=== PATIENT | male | born 1955 | race Caucasian/White ===

== ENCOUNTER 2021-01-27 11:01 | Inpatient (IN) | payer MEDICARE, SELFPAY ==
[2021-01-27] VITALS (24 sets, daily range): BP systolic 100–138; BP diastolic 65–102; PULSE 50–85; RESP 19–35; TEMP 36.6–37.5; O2SAT 70–96; BMI 42.0; BMI 41.8
--- NOTE | 2021-01-27 11:05 | EDS_ITS ---
HPI History of Present Illness Chief Complaint: Shortness of Breath Informant: patient Onset/Context/Timing Onset: Days Context: gradual Timing: Continuous Current Severity: Moderate Maximum Severity: Moderate Worsened by: Coughing Relieved by: Nothing Associated Symptoms cough Narrative Narrative: Patient is a 65-year-old male who is on no daily medications presents to the emergency department with shortness of breath, scant cough, chills, and malaise. On arrival, the patient was found to be hypoxic with oxygen saturations in the 70s. He was placed on a nonrebreather. He states for the past 3 or 4 days, is just felt generally unwell. Patient has not been vaccinated against Covid. He cannot recall any sick contacts. He denies chest pain or pleuritic pain. He states that he was recently treated for gout and as it was improving, he began to get sick. He has no underlying history of lung disease. He does not smoke. He has no history of pulmonary embolus. [facility] Medical History (Updated 01/27/21 @ 11:14 by Oswaldo Campbell) Gout no medical history Home Medications NK 01/27/21 [History Last Taken Unknown] Allergy/AdvReac Type Severity Reaction Status Date / Time No Known Allergies Allergy Verified 01/27/21 11:04 Surgical History (Updated 01/27/21 @ 11:14 by Oswaldo Campbell) History of arthroscopic knee surgery Social History Smoking Status: Never smoker ROS ROS ED Constitutional Constitutional ED: Reports chills Eyes Eyes: Denies blurry vision or change in vision ENT ENT ED: Denies ear pain or sore throat Cardiovascular Cardiovascular: Denies chest pain or palpitations Respiratory/Chest Respiratory/Chest: Reports cough, dyspnea and dyspnea on exertion Gastrointestinal Gastrointestinal: Denies abdominal pain, nausea or vomiting Genitourinary Genitourinary ED: Denies dysuria or urinary frequency Musculoskeletal Musculoskeletal: Denies arthralgias or myalgias Integumentary Denies rash Neurologic Neurologic: Denies headache(s) or paresthesias Psychiatric Psychiatric: Denies anxiety or depression Endocrine Endocrinology: Denies polydipsia or polyuria Allergic/Immunologic Allergic/Immunologic ED: Denies urticaria EXAM Physical Exam Const Vital Signs: 01/27/21 11:08 01/27/21 11:12 01/27/21 11:15 Temperature 99.1 F 99.1 F Temperature Source Temporal Temporal Pulse Rate 79 78 80 Respiratory Rate 28 H 30 H 20 H Respiratory Effort Respiratory Depth Respiratory Pattern Tachypnea Blood Pressure 138/80 H 138/80 H Blood Pressure Mean 99 99 Pulse Ox 70 88 93 Oxygen Delivery Method Room Air Non-Rebreather Oxygen Flow Rate (L/min) 15 Fraction of Inspired Oxygen (FIO2) 93 01/27/21 11:18 Temperature Temperature Source Pulse Rate Respiratory Rate Respiratory Effort Short of Breath Respiratory Depth Normal Respiratory Pattern Tachypnea Blood Pressure Blood Pressure Mean Pulse Ox Oxygen Delivery Method Airvo Oxygen Flow Rate (L/min) 60 Fraction of Inspired Oxygen (FIO2) 92 Positive well nourished and well developed General Appearance ED: well developed HEENT Reports normocephalic, head/scalp atraumatic and moist mucous membranes Eyes PERRL and EOMs intact bilaterally Neck no lymphadenopathy and supple General: Negative for tenderness Chest Wall inspection of chest normal Resp normal respiratory effort Auscultation: rhonchi Cardio regular rate, regular rhythm and no murmurs GI normal to inspection, nondistended, normoactive bowel sounds Palpation: Negative for tender, guarding or rebound tenderness present Back/Spine no CVA tenderness Cervical Spine: Negative for cervical spine tenderness Thoracic Spine / Upper Back: Negative for thoracic spinal tenderness Extremity normal to inspection General Extremety ED: Negative for tenderness Neuro oriented x3 and CN's II-XII intact bilaterally Neuro Narrative: No focal deficits appreciated. Sensorium / Orientation: alert Psych mental status grossly normal Skin no rashes or lesions noted, no wounds and skin turgor normal MDM MDM MDM Narrative Medical decision making narrative: The patient presents with generalized malaise, fatigue, cough, shortness of breath. On arrival, the patient has an oxygen saturation of 70%. He is in no respiratory distress however. He does have coarse lung sounds. I am concerned that the patient may have Covid. He has not been vaccinated. Metabolic work-up was pursued. His x-ray does show bilateral infiltrates consistent with viral pneumonia. Is reviewed by both myself and the radiologist. Patient's Covid test was positive. Patient was able to be transitioned to Jaya with oxygen saturations in the mid 90s. He is also given 6 mg of Decadron. With his hypoxic respiratory failure, I do for the patient is to require admission. The patient was discussed with the hospitalist. Impression 1. Hypoxic respiratory failure 2. COVID-19 3. Acute kidney injury Lab Data Attestation: I reviewed the patient's lab results. Labs: Laboratory Results - last 24 hr 01/27/21 01/27/21 11:38 11:38 Sodium 135 L Potassium 3.3 L Chloride 98 Carbon Dioxide 27.0 Anion Gap 10 BUN 24 H Creatinine 1.85 H Estim Creat Clear Calc 36.23 Est GFR (MDRD) Af Amer 47 L Est GFR (MDRD) Non-Af 39 L BUN/Creatinine Ratio 13.0 Glucose 143 H Lactic Acid 1.9 Calcium 8.0 L Total Bilirubin 0.50 AST 75 H ALT 66 H Alkaline Phosphatase 50 Total Protein 7.3 Albumin 3.1 L Globulin 4.2 Albumin/Globulin Ratio 0.7 L Radiography Chest X-Ray - ED: 1 View, Read by ED Physician, Normal, Heart, Mediastinum, Right Infiltrate and Left Infiltrate Diagnostic Testing: Radiology Impression Chest X-Ray 01/27/21 11:16 IMPRESSION: Right upper lobe infiltrate as well as focal infiltrate in the left upper lobe and left lower lobe. Follow-up is recommended. Electronically Signed: Yony Arizmendi MD at 11:34 EDT , Service support , Critical Care Time Critical Care Time: Yes Critical care time (excluding procedures): 30-74 minutes (35), Discussing w/Patient &/or Family/Care Professional, Discussing w/Consultants, Arranging Admission or Transfer and Performing Direct Patient Care at Bedside Discharge Plan Triage Chief Complaint: Shortness of Breath ED Provider: Giuliano Bradshaw Dx/Rx/DC Orders Prescriptions: No Action NK RF: 0 Primary Care Provider: Care Physician,No Primary
--- NOTE | 2021-01-27 11:16 | RAD_ITS ---
STUDY: X-RAY CHEST REASON FOR EXAM: Male, 65 years old. Cough, SOB TECHNIQUE: Single AP portable view of the chest. COMPARISON: None. FINDINGS: EKG electrodes are seen. There is elevation of the right hemidiaphragm. Infiltrate in the right upper lobe as well as in the left upper and left lower lobes. Differential diagnosis consideration includes atypical CHF versus bilateral pulmonary infiltrates. There is no demonstrated pleural abnormality. Normal size heart. Normal mediastinum and tan. Normal visualized pulmonary arteries. There is atherosclerotic calcification of the aortic arch with tortuosity. There are diffuse degenerative changes of the visualized thoracic spine. Normal visualized ribs, clavicles, and shoulders. There is no demonstrated abnormality of the visualized soft tissue structures of the upper abdomen. RAD/Chest 1 View (Portable) IMPRESSION: Right upper lobe infiltrate as well as focal infiltrate in the left upper lobe and left lower lobe. Follow-up is recommended. Electronically Signed: Yony Arizmendi MD at 11:34 EDT , Service support ,
[2021-01-27 11:54] LABS: Absolute Lymphocyte Count 1.22 X10^3/uL (0.83-4.51); Absolute Neutrophil Count 3.8 X10^3/uL (2.0-7.7); Basophil# 0.02 X10^3/uL; Basophil% 0.3 % (0-1); Hematocrit 45.7 % (40-54); Hemoglobin 15.3 g/dL (13.0-16.5); Lymphocyte # 1.22 X10^3/ul (0.83-4.51); Lymphocyte % 20.4 % (19-41); Mean Corp Hgb Conc 33.5 g/dL (32-36); Mean Corpuscular Hgb 28.5 pg (27.0-32.0); Mean Corpuscular Volume 85.3 fL (80-94); Mean Platelet Vol. 10.4 fl (6.2-12.0); Monocyte# 0.94 X10^3/uL; Monocyte% 15.7 % (0-10); NRBC Flagged by Analyzer 0 % (0-5); Neutrophil # 3.75 X10^3/uL (2.7-7.7); Neutrophil % 62.8 % (47-70); Platelet Count 223 K/mm3 (150-450); RBC Distribution Width CV 13.6 % (11.6-14.6); RBC Distribution Width SD 42.6 fl (35.1-43.9); Red Blood Count 5.36 M/mm3 (4.6-6.2)
[2021-01-27 12:11] LABS: ALB/GLOB Ratio 0.7 RATIO (0.9-2.4); AST(SGOT) 75 U/L (15-37); Alanine Aminotransfer ALT/SGPT 66 U/L (16-61); Albumin, Serum 3.1 g/dL (3.2-5.0); Alkaline Phosphatase 50 U/L (45-117); Anion Gap 10 (5-15); BUN 24 mg/dL (7-18); Chloride 98 mmol/L (98-107); Creatinine, Serum 1.85 mg/dL (0.70-1.30); EST Glomerular Filtration Rate 39 mL/min (>60); Est Glom Filt Rate - Afr Amer 47 mL/min (>60); Estimated Creatinine Clearance 36.23 ml/min; Globulin 4.2 g/dL (2.2-4.2); Glucose 143 mg/dL (74-106); Potassium 3.3 mmol/L (3.5-5.1); Protein, Total 7.3 g/dL (6.4-8.2); Sodium Level 135 mmol/L (136-145)
[2021-01-27 12:16] LABS: Lactic Acid 1.9 mmol/L (0.4-1.9)
[2021-01-27 12:30] LABS: BNP,B-Type NATRIURETIC PEPTIDE 30.2 pg/mL (0-100)
--- NOTE | 2021-01-27 12:36 | NURSING ---
DR SEBASTIAN ROGERS
--- NOTE | 2021-01-27 12:38 | HP.PCM.HOS_ITS ---
HPI - General General Date of Admission: 01/27/21 HPI Narrative GILBERTO DAHL, is a 65 M with unknown medical problem as he does not follow physician perhaps hypertension came to ER with symptom complex for 10 days. This started with nonspecific malaise weakness and diarrhea for about 4 days. Yesterday the diarrhea was large volume watery about 3-4 times a day without any blood or melena. Denies vomiting, hematemesis. This is resolved but started having mild nonproductive cough and shortness of breath over last 4 days which has progressed. Mild fever with chills. Denies loss of taste or smell. Generalized body aches. Patient denies any respiratory disease including COPD, asthma, interstitial lung disease or smoking. Denies chronic heart disease including heart failure or coronary artery disease. In the ER, he was found sick with tachypnea, pulse ox 70% on room air and put on nonrebreather and then AIRVO. Chest x-ray shows bilateral infiltrates in the right upper lobe, left upper and lower lobes. Labs reviewed and abnormal labs were BUN/creatinine 24/1.85, sodium 135 and potassium 3.3, glucose 143, elevated transaminases. Lactic acid normal. Procalcitonin 0.16 elevated. COUNTS INCLUDE 234 BEDS AT THE [facility] Medical History Gout Kidney stones Home Medications NK 01/27/21 [History Last Taken Unknown] Allergy/AdvReac Type Severity Reaction Status Date / Time No Known Allergies Allergy Verified 01/27/21 11:04 Family History (Updated 01/27/21 @ 14:[address] Rodri Joyce MD) Father Cancer Surgical History History of arthroscopic knee surgery Social History Smoking Status: Never smoker ROS ROS Narrative Constitutional: Reports fatigue and weakness. Short of breath HEENT: Reports systems reviewed and no addt'l complaints, except as documented Respiratory/Chest: Denies chest pain. Dyspnea at rest and hypoxia severe as mentioned in HPI Gastrointestinal: Diarrhea resolved. Losartan. Denies coffee ground emesis, hematemesis or vomiting Genitourinary: Denies burning urination or new urinary tract symptoms. Urine dark color. Musculoskeletal: Reports joint pain and limited range of motion Neurologic: Denies seizure-like activity skin: No ulcer. No rash Endocrinology: Reports systems reviewed and no addt'l complaints, except as docu mented Hematologic/Lymphatic: Reports systems reviewed and no addt'l complaints, except as documented Rest 12 ROS are negative except as mentioned in HPI Vital Signs Vital Signs Vital Signs: 01/27/21 11:08 01/27/21 11:12 01/27/21 11:15 Temperature 99.1 F 99.1 F Temperature Source Temporal Temporal Pulse Rate 79 78 80 Respiratory Rate 28 H 30 H 20 H Respiratory Effort Respiratory Depth Respiratory Pattern Tachypnea Blood Pressure 138/80 H 138/80 H Blood Pressure Mean 99 99 Pulse Ox 70 88 93 Oxygen Delivery Method Room Air Non-Rebreather Oxygen Flow Rate (L/min) 15 Fraction of Inspired Oxygen (FIO2) 93 01/27/21 11:18 Temperature Temperature Source Pulse Rate Respiratory Rate Respiratory Effort Short of Breath Respiratory Depth Normal Respiratory Pattern Tachypnea Blood Pressure Blood Pressure Mean Pulse Ox Oxygen Delivery Method Airvo Oxygen Flow Rate (L/min) 60 Fraction of Inspired Oxygen (FIO2) 92 Weight Weight: 268 lb 8.368 oz Body Mass Index (BMI) 42.0 Physical Exam Narrative Physical exam General: Alert, Oriented x3, Cooperative HEENT: Atraumatic, PERRLA, EOMI, Normocephalic Oral: Oral mucosa dry. No Gingival or Mucosal Lesions/ Ulcerations Neck: Supple, No JVD, Negative Carotid Bruits Lungs: Air entry severely diminished in bilateral lung bases. Bilateral coarse crepitations. Severe hypoxia and tachypnea Cardiovascular: Regular rate, Regular Rhythm, Normal S1, Normal S2, No murmurs Abdomen: Bowel Sounds Present, Soft, Non Tender, Non-Distended : No renal angle tenderness. No suprapubic tenderness. Extremities: No edema, Capillary Refill Less than 3 Seconds Skin: No rashes, No breakdown Musculoskeletal: No Tenderness to Palpation of Joints or Extremities Neurological: Cranial nerves II-XII grossly intact, Deep Tendon Reflexes 2+/4 and Symmetrical, Neuro grossly intact Psych/Mental Status: Normal Affect, Appropriate. Results Lab / Micro Data Result Diagrams: 01/27/21 11:38 01/27/21 11:38 Labs: Laboratory Results - last 24 hr 01/27/21 01/27/21 01/27/21 11:38 11:38 11:38 WBC 6.0 RBC 5.36 Hgb 15.3 Hct 45.7 MCV 85.3 MCH 28.5 MCHC 33.5 RDW Std Deviation 42.6 RDW Coeff of [place] 13.6 Plt Count 223 MPV 10.4 Immature Gran % (Auto) 0.800 Neut % (Auto) 62.8 Lymph % (Auto) 20.4 Grady % (Auto) 15.7 H Eos % (Auto) 0.0 Baso % (Auto) 0.3 Absolute Neuts (auto) 3.8 Absolute Lymphs (auto) 1.22 Nucleated RBC % 0 Sodium 135 L Potassium 3.3 L Chloride 98 Carbon Dioxide 27.0 Anion Gap 10 BUN 24 H Creatinine 1.85 H Estim Creat Clear Calc 36.23 Est GFR (MDRD) Af Amer 47 L Est GFR (MDRD) Non-Af 39 L BUN/Creatinine Ratio 13.0 Glucose 143 H Lactic Acid 1.9 Calcium 8.0 L Total Bilirubin 0.50 AST 75 H ALT 66 H Alkaline Phosphatase 50 B-Natriuretic Peptide Total Protein 7.3 Albumin 3.1 L Globulin 4.2 Albumin/Globulin Ratio 0.7 L 01/27/21 11:38 WBC RBC Hgb Hct MCV MCH MCHC RDW Std Deviation RDW Coeff of [place] Plt Count MPV Immature Gran % (Auto) Neut % (Auto) Lymph % (Auto) Grady % (Auto) Eos % (Auto) Baso % (Auto) Absolute Neuts (auto) Absolute Lymphs (auto) Nucleated RBC % Sodium Potassium Chloride Carbon Dioxide Anion Gap BUN Creatinine Estim Creat Clear Calc Est GFR (MDRD) Af Amer Est GFR (MDRD) Non-Af BUN/Creatinine Ratio Glucose Lactic Acid Calcium Total Bilirubin AST ALT Alkaline Phosphatase B-Natriuretic Peptide 30.2 Total Protein Albumin Globulin Albumin/Globulin Ratio Micro: Microbiology 01/27/21 11:42 SARS-CoV-2 Antigen (Rapid) - Final Mucosa - Nose SARS-CoV-2 (COVID 19) Radiology Impression Chest X-Ray 01/27/21 11:16 IMPRESSION: Right upper lobe infiltrate as well as focal infiltrate in the left upper lobe and left lower lobe. Follow-up is recommended. Electronically Signed: Yony Arizmendi MD at 11:34 EDT , Service support , Assessment & Plan Assessment/Plan (1) Acute and chronic respiratory failure with hypoxia: (2) Pneumonia due to COVID-19 virus: (3) Hypokalemia: (4) JODI (acute kidney injury): PLAN: 65-year-old gentleman admitted with severe hypoxia and tachypnea and chest x-ray finding consistent with bilateral COVID-19 pneumonia 1. Acute hypoxic respiratory failure secondary to bilateral COVID-19 pneumonia: ABG was done, 7.4 on 60 L, pulse ox 93% on airvo. Patient is being a dmitted in ICU. Kelly Machine Operator and ID are consulted for comanagement. I talked to Dr. Davidson and we agreed for IV remdesivir. IV Decadron 6 mg daily. Oxygen therapy. 2. Acute gastroenteritis: Patient diarrhea symptoms have resolved. On IV fluid Ringer lactate as potassium sodium are low. 3. Acute kidney injury mostly secondary to dehydration, prerenal etiology or JODI of CKD of unknown stage: IV fluid Ringer lactate. Urine lites ordered. Monitor kidney function if does not improve, kidney ultrasound consult spinner tender. Last creatinine is 1.1 in June 2014 in our system 4. Patient history of gout and kidney stones. Patient states he might have hypertension. Patient has unknown medical history and does not follow physician. Patient is in non-smoker. VTE prophylaxis: Lovenox 40 mg subcu daily, adjusted because of creatinine clearance. Living will/advanced directive/end of life care: Patient does not have living will or advanced directive. His power of privacy attorney for health is son. After discussion of benefits/risks procedures involved with full code, DNR CC arrest and DNR CC, the patient opted for full code. Patient does want artificial life support including intubation, tube feed, ventilator and/chest compression, central venous catheter, vasopressor and DC shock if needed Total time spent in [id number] encounter in discussion of advanced directive 16 minutes. Charges/Coding Visit Charges Inpatient E&M: 58810 Init Hosp L3 Multi Select Codes Hospitalists' Procedures Procedures: 91373 Advncd Care Plan 30 Min
--- NOTE | 2021-01-27 12:40 | NURSING ---
ICU [facility] COVID, HYPOXIA
--- NOTE | 2021-01-27 12:59 | NURSING ---
DR CORTES IN WITH PATIENT
--- NOTE | 2021-01-27 13:04 | NURSING ---
CV ICU 203
[2021-01-27] MEDS: 0.9% Normal Saline 1,000 ML 125 ML IV (13:39)
[2021-01-27] MEDS: dexAMETHasone 4 MG/ML Vial 6 MG IV (13:39)
[2021-01-27 14:07] LABS: Procalcitonin 0.16 ng/mL (0.00-0.09)
--- NOTE | 2021-01-27 14:33 | EKG12_ITS ---
Test Reason : ADMIT Blood Pressure : / mmHG Vent. Rate : 074 BPM Atrial Rate : 074 BPM P-R Int : 148 ms QRS Dur : 108 ms QT Int : 482 ms P-R-T Axes : 001 -08 042 degrees QTc Int : 535 ms Normal sinus rhythm Prolonged QT Abnormal ECG When compared with ECG of 15-JUN-2014 14:52, QT has lengthened Confirmed by GURU GALLEGO, IVAN ([id number]), design editor ARVIND LEBRON ([id number]) on 01/31/2021 9:43:25 AM Referred By: SEBASTIAN Confirmed By:IVAN GARVEY MD
[2021-01-27 14:35] LABS: Allen Test Positive; Base Excess 1 mmol/L (-2 to +2); Bicarbonate 25.2 mmol/L (22-26); Blood Gas Specimen Type ART; FI02 93; PO2 62 mmHG (75-100); SITE L Radial; SO2 92 % (95-99); Total Carbon Dioxide 26 mmol/L; pH 7.43 (7.35-7.45)
[2021-01-27 17:52] LABS: Magnesium 1.9 mg/dL (1.6-2.6)
[2021-01-27] MEDS: 0.9% Saline Lock 10 ML Syringe IV (17:54)
[2021-01-27] MEDS: Enoxaparin 40 MG/0.4 ML Syringe SC (17:54)
[2021-01-27] MEDS: Lactated Ringers 1,000 ML 100 ML IV (17:55)
[2021-01-27 18:00] LABS: CPK Total, Creatine Kinase 490 U/L (39-308); LDH 634 U/L (87-241)
[2021-01-27 18:16] LABS: International Normalized Ratio 1.1; Prothrombin Time (Protime)PT. 13.8 SECONDS (11.7-14.9)
[2021-01-27 18:17] LABS: Fibrinogen 626 mg/dl (203-444)
[2021-01-27 18:24] LABS: D-Dimer Quantitative (DVT/PE) 1.23 FEU/ug/m (0.27-0.49)
[2021-01-27] MEDS: Ipratropium/Albuterol Sulfate 3 ML AMPUL.NEB INHALATION (18:56)
--- NOTE | 2021-01-27 19:13 | VDLE_ITS ---
Reason For Study: Elevated D-dimer RIGHT LEFT GSV is normal. GSV is normal. CFV, FV and PopV are compressible. CFV, FV and PopV are compressible. T/P Trunk is compressible. T/P Trunk is compressible. PTV is compressible. PTV is compressible. RT PerV is compressible. LT PerV is compressible. Procedure This is a venous duplex using B-mode, color flow and spectral Doppler. Exam performed portable in patient room. The exam was abbreviated due to the COVID 19 protocol. A preliminary report was called and/or faxed to [facility] and Pete. VL/Venous Duplex US - Tk Extrem Interpretation Summary No evidence for acute deep venous thrombosis bilateral lower extremities with p atent and compressible bilateral great saphenous veins. COVID-19 protocol utilized Ordering Physician: Ernesto Mathias Performed By: Estelita Stanton RVT
[2021-01-27] MEDS: Enoxaparin 120 MG/0.8 ML Syringe SC (20:51)
[2021-01-27 21:45] LABS: Urine Chloride < 10 mmol/L (Not Establ.); Urine Sodium 9 mmol/L (Not Establ.)
[2021-01-28] VITALS (36 sets, daily range): BP systolic 104–148; BP diastolic 64–85; PULSE 53–84; RESP 12–45; TEMP 36.1–36.9; O2SAT 78–97
--- NOTE | 2021-01-28 05:23 | CPS ---
Patient transitioned to AVAPS BiPAP mode for low shallow tidal volumes ranging in the low 300s on 27/05 with increased tachypnea. Volumes on AVAPS improved and oxygenation improved with increase of FiO2 to 90% from 80% on previous setting.
[2021-01-28 06:02] LABS: Absolute Lymphocyte Count 1.02 X10^3/uL (0.83-4.51); Basophil# 0.01 X10^3/uL; Basophil% 0.1 % (0-1); Hematocrit 45.2 % (40-54); Hemoglobin 14.8 g/dL (13.0-16.5); Lymphocyte # 1.02 X10^3/ul (0.83-4.51); Lymphocyte % 12.8 % (19-41); Mean Corp Hgb Conc 32.7 g/dL (32-36); Mean Corpuscular Hgb 28.6 pg (27.0-32.0); Mean Corpuscular Volume 87.3 fL (80-94); Mean Platelet Vol. 10.3 fl (6.2-12.0); Monocyte# 0.83 X10^3/uL; Monocyte% 10.4 % (0-10); NRBC Flagged by Analyzer 0 % (0-5); Neutrophil # 6.04 X10^3/uL (2.7-7.7); Neutrophil % 75.8 % (47-70); Platelet Count 232 K/mm3 (150-450); RBC Distribution Width CV 13.8 % (11.6-14.6); RBC Distribution Width SD 44.4 fl (35.1-43.9); Red Blood Count 5.18 M/mm3 (4.6-6.2)
--- NOTE | 2021-01-28 06:24 | EX.PCM.CONCC ---
Assessment & Plan Assessment/Plan (1) Pneumonia due to COVID-19 virus: PLAN: RECOMMENDATIONS: 1. Continue BiPAP support and wean FiO2 to maintain oxygen saturations at or above 90%. 2. If no improvement in next 24 hours, may need to consider intubation. 3. Continue remdesivir as ordered. Continue to monitor liver and renal function. 4. Continue Decadron to complete 10-day treatment course. 5. Given elevated D-dimer, recommend empiric anticoagulation until CTA can be obtained. 6. Patient to be n.p.o., given tenuous respiratory status. IMPRESSIONS: 1. Acute hypoxemic respiratory failure secondary to COVID-19 pneumonia The patient presents to the hospital with approximately 10 days of Covid symptoms and has had progressive decline in his respiratory status. Plan to continue noninvasive positive pressure ventilatory support as tolerated with a goal to maintain oxygen saturations at or above 90%. The patient will be continued on remdesivir, with monitoring of liver and renal function. Plan to continue Decadron to complete 10-day treatment course. Although D-dimer was elevated, CTA could not be obtained due to renal insufficiency. Agree with continuing empiric anticoagulation for now. The patient is at high risk for the need for intubation in the next 24 hours, if no improvement from an oxygenation perspective. 2. Acute kidney injury Most likely prerenal in etiology and related to acute presentation. Creatinine has improved with volume expansion. Continue to monitor urine output. No current indication for renal replacement therapy. TIME: 38 minutes of critical care time, independent of procedures, was spent addressing the patient's acute hypoxemic respiratory failure, COVID-19 pneumonia, acute kidney injury, review of all data and collaboration with the care team. ([phone]) HPI Consult Data Date of Consult: 01/28/21 HPI Narrative Reason for Consultation: Acute hypoxemic respiratory failure secondary to COVID-19 pneumonia HPI Narrative: The patient is a 65-year-old male, with a history as outlined below, who presented to the emergency department on January 27 with complaints of shortness of breath, nonproductive cough, generalized malaise, fatigue and hypoxemia. The patient has not yet been vaccinated for coronavirus. He denies any recent sick contact exposure. Symptoms have been present for approximately 10 days. On presentation to the emergency department, the patient was noted to be afebrile and hemodynamically stable. He was, however, tachypneic and hypoxemic. Laboratory evaluation revealed a normal white blood cell count. Coagulation profile revealed a fibrinogen level of 626 with a D-dimer of 1.23. Chemistry profile was notable for a sodium of 135, potassium of 3.3 and creatinine of 1.85. Initial arterial blood gas obtained on airVo revealed a pH of 7.43, PCO2 of 38 and PO2 of 62. Chest x-ray revealed multifocal airspace disease. Rapid coronavirus antigen testing was positive. The patient was started on Lovenox, remdesivir and Decadron. He was admitted to the medical intensive care unit for further management. Overnight, the patient required initiation of BiPAP and currently has an FiO2 requirement of 90%. [facility] Medical History Gout Kidney stones Home Medications NK 01/27/21 [History Last Taken Unknown] Allergy/AdvReac Type Severity Reaction Status Date / Time No Known Allergies Allergy Verified 01/27/21 11:04 Family History (Updated 01/27/21 @ 14:[address] Rodri Joyce MD) Father Cancer Surgical History History of arthroscopic knee surgery Social History Smoking Status: Never smoker ROS Constitutional Constitutional: Reports chills, fatigue and fever(s) Eyes Eyes: Denies blurry vision or change in vision ENT HEENT: Denies headache(s), loss taste/smell or sore throat Cardiovascular Cardiovascular: Reports dyspnea; Denies chest pain Respiratory/Chest Respiratory/Chest: Reports cough; Denies chest tightness Gastrointestinal Gastrointestinal: Reports diarrhea; Denies abdominal pain Genitourinary Genitourinary: Denies difficulty urinating Musculoskeletal Musculoskeletal: Denies arthralgias or back pain Integumentary Integumentary: Denies lesions or rash Neurologic Neurologic: Denies abnormal gait or abnormal speech Psychiatric Psychiatric: Denies anxiety or depression Endocrine Endocrinology: Reports fatigue Hematologic/Lymphatic Hematologic/Lymphatic: Denies easy bleeding or easy bruising Physical Exam Const alert General Appearance: cooperative and on BiPAP HEENT normocephalic and head/scalp atraumatic Eyes PERRL, EOMs intact bilaterally and conjunctivae normal Neck supple General: trachea midline Resp Effort and Inspection: tachypneic Auscultation: diminished lung sounds Cardio regular rate and regular rhythm GI normal to inspection, nondistended, normoactive bowel sounds Extremity no clubbing, cyanosis or edema Skin no rashes or lesions noted Neuro CN's II-XII intact bilaterally, moves all extremities and no focal motor deficits Psych cooperative and affect normal Lab / Micro Data Result Diagrams: 01/28/21 05:50 01/28/21 05:50 Labs: Laboratory Results - last 24 hr 01/27/21 01/27/21 01/27/21 11:38 11:38 11:38 WBC 6.0 RBC 5.36 Hgb 15.3 Hct 45.7 MCV 85.3 MCH 28.5 MCHC 33.5 RDW Std Deviation 42.6 RDW Coeff of [place] 13.6 Plt Count 223 MPV 10.4 Immature Gran % (Auto) 0.800 Neut % (Auto) 62.8 Lymph % (Auto) 20.4 [place] % (Auto) 15.7 H Eos % (Auto) 0.0 Baso % (Auto) 0.3 Absolute Neuts (auto) 3.8 Absolute Lymphs (auto) 1.22 Nucleated RBC % 0 PT INR Fibrinogen D-Dimer Quant (PE/DVT) Sodium 135 L Potassium 3.3 L Chloride 98 Carbon Dioxide 27.0 Anion Gap 10 BUN 24 H Creatinine 1.85 H Estim Creat Clear Calc 36.23 Est GFR (MDRD) Af Amer 47 L Est GFR (MDRD) Non-Af 39 L BUN/Creatinine Ratio 13.0 Glucose 143 H Lactic Acid 1.9 Calcium 8.0 L Magnesium Total Bilirubin 0.50 AST 75 H ALT 66 H Alkaline Phosphatase 50 Lactate Dehydrogenase Total Creatine Kinase Troponin I C-React Prot Ext Range B-Natriuretic Peptide Total Protein 7.3 Albumin 3.1 L Globulin 4.2 Albumin/Globulin Ratio 0.7 L Procalcitonin Ur Random Sodium Urine Creatinine Urine Potassium Urine Chloride 01/27/21 01/27/21 01/27/21 11:38 11:38 11:38 WBC RBC Hgb Hct MCV MCH MCHC RDW Std Deviation RDW Coeff of [place] Plt Count MPV Immature Gran % (Auto) Neut % (Auto) Lymph % (Auto) [place] % (Auto) Eos % (Auto) Baso % (Auto) Absolute Neuts (auto) Absolute Lymphs (auto) Nucleated RBC % PT INR Fibrinogen D-Dimer Quant (PE/DVT) Sodium Potassium Chloride Carbon Dioxide Anion Gap BUN Creatinine Estim Creat Clear Calc Est GFR (MDRD) Af Amer Est GFR (MDRD) Non-Af BUN/Creatinine Ratio Glucose Lactic Acid Calcium Magnesium 1.9 Total Bilirubin AST ALT Alkaline Phosphatase Lactate Dehydrogenase Total Creatine Kinase Troponin I C-React Prot Ext Range B-Natriuretic Peptide 30.2 Total Protein Albumin Globulin Albumin/Globulin Ratio Procalcitonin 0.16 H Ur Random Sodium Urine Creatinine Urine Potassium Urine Chloride 01/27/21 01/27/21 01/27/21 11:38 17:45 20:50 WBC RBC Hgb Hct MCV MCH MCHC RDW Std Deviation RDW Coeff of [place] Plt Count MPV Immature Gran % (Auto) Neut % (Auto) Lymph % (Auto) [place] % (Auto) Eos % (Auto) Baso % (Auto) Absolute Neuts (auto) Absolute Lymphs (auto) Nucleated RBC % PT 13.8 INR 1.1 Fibrinogen 626 H D-Dimer Quant (PE/DVT) 1.23 H* Sodium Potassium Chloride Carbon Dioxide Anion Gap BUN Creatinine Estim Creat Clear Calc Est GFR (MDRD) Af Amer Est GFR (MDRD) Non-Af BUN/Creatinine Ratio Glucose Lactic Acid Calcium Magnesium Total Bilirubin AST ALT Alkaline Phosphatase Lactate Dehydrogenase 634 H Total Creatine Kinase 490 H Troponin I 0.024 C-React Prot Ext Range 56.50 H B-Natriuretic Peptide Total Protein Albumin Globulin Albumin/Globulin Ratio Procalcitonin Ur Random Sodium 9 Urine Creatinine 182.00 Urine Potassium 32.0 Urine Chloride < 10 01/28/21 05:50 WBC 8.0 RBC 5.18 Hgb 14.8 Hct 45.2 MCV 87.3 MCH 28.6 MCHC 32.7 RDW Std Deviation 44.4 H RDW Coeff of [place] 13.8 Plt Count 232 MPV 10.3 Immature Gran % (Auto) 0.900 Neut % (Auto) 75.8 H Lymph % (Auto) 12.8 L [place] % (Auto) 10.4 H Eos % (Auto) 0.0 Baso % (Auto) 0.1 Absolute Neuts (auto) 6.0 Absolute Lymphs (auto) 1.02 Nucleated RBC % 0 PT INR Fibrinogen D-Dimer Quant (PE/DVT) Sodium Potassium Chloride Carbon Dioxide Anion Gap BUN Creatinine Estim Creat Clear Calc Est GFR (MDRD) Af Amer Est GFR (MDRD) Non-Af BUN/Creatinine Ratio Glucose Lactic Acid Calcium Magnesium Total Bilirubin AST ALT Alkaline Phosphatase Lactate Dehydrogenase Total Creatine Kinase Troponin I C-React Prot Ext Range B-Natriuretic Peptide Total Protein Albumin Globulin Albumin/Globulin Ratio Procalcitonin Ur Random Sodium Urine Creatinine Urine Potassium Urine Chloride Micro: Microbiology 01/27/21 20:50 Legionella Antigen - Final Urine, Clean Catch Streptococcus pneumoniae Antigen (M - Final 01/27/21 16:20 Respiratory Panel (PCR) - Final Mucosa - Nose 01/27/21 11:42 SARS-CoV-2 Antigen (Rapid) - Final Mucosa - Nose SARS-CoV-2 (COVID 19) ABG Data ABG results: ABG 01/27/21 14:29 Specimen Type ART Sample Site L Radial pH 7.43 Bicarbonate Actual 25.2 Total CO2 26 Base Excess 1 O2 Saturation 92 L O2 % 93 ABG pCO2 38.0 ABG pO2 62 L Brock Test Positive Clinical Comments airvo at 60lpm & 93% Radiology Impression Chest X-Ray 01/27/21 11:16 IMPRESSION: Right upper lobe infiltrate as well as focal infiltrate in the left upper lobe and left lower lobe. Follow-up is recommended. Electronically Signed: Yony Arizmendi MD at 11:34 EDT , Service support , Charges/Coding Procedures Hospitalists Procedures: [id number] Critial Care 1st Hr
[2021-01-28 06:26] LABS: ALB/GLOB Ratio 0.6 RATIO (0.9-2.4); AST(SGOT) 59 U/L (15-37); Alanine Aminotransfer ALT/SGPT 59 U/L (16-61); Albumin, Serum 2.7 g/dL (3.2-5.0); Alkaline Phosphatase 52 U/L (45-117); Anion Gap 5 (5-15); BUN 27 mg/dL (7-18); BUN/Creat Ratio 17.8 RATIO (10-20); Calcium,Total 8.2 mg/dL (8.5-10.1); Chloride 101 mmol/L (98-107); Creatinine, Serum 1.52 mg/dL (0.70-1.30); EST Glomerular Filtration Rate 49 mL/min (>60); Est Glom Filt Rate - Afr Amer 59 mL/min (>60); Estimated Creatinine Clearance 44.09 ml/min; Globulin 4.2 g/dL (2.2-4.2); Glucose 146 mg/dL (74-106); Magnesium 2.2 mg/dL (1.6-2.6); Potassium 4.2 mmol/L (3.5-5.1); Protein, Total 6.9 g/dL (6.4-8.2); Sodium Level 139 mmol/L (136-145)
[2021-01-28 06:35] LABS: Phosphorus 3.3 mg/dL (2.5-4.9)
[2021-01-28] MEDS: Ipratropium/Albuterol Sulfate 3 ML AMPUL.NEB INHALATION ×4 (08:20→19:00)
[2021-01-28] MEDS: Enoxaparin 120 MG/0.8 ML Syringe SC ×2 (12:58→21:02)
[2021-01-28] MEDS: dexAMETHasone 10 MG/ML Vial IV (12:58)
[2021-01-28] MEDS: 0.9% Saline Lock 10 ML Syringe IV (12:59)
--- NOTE | 2021-01-28 13:32 | PN.HOSP_ITS ---
Subjective Subjective Seen and examined. On high flow oxygen 85%. Tachypneic respiratory rate 35 to 40/min. Objective Data Objective Data Vital Signs: Vital Signs Temp Pulse Resp BP Pulse Ox 98.4 F 70 37 H 123/76 H 93 01/28/21 08:00 01/28/21 11:00 01/28/21 10:32 01/28/21 10:00 01/28/21 10:32 Oxygen Flow Rate (L/min) 60 Oxygen Delivery Method Bi-pap Weight: 266 lb 12.149 oz Body Mass Index (BMI) 41.8 Intake & Output: Intake and Output for Last 24 Hours 01/26/21 01/27/21 01/28/21 23:59 23:59 23:59 Intake Total 1325 / 1325 2100 / 2100 Output Total 275 / 500 725 / 725 Balance 1050 / 825 1375 / 1375 Lab / Micro Data Result Diagrams: 01/28/21 05:50 01/28/21 05:50 Labs: Laboratory Results - last 24 hr 01/27/21 01/27/21 01/27/21 11:38 11:38 11:38 WBC RBC Hgb Hct MCV MCH MCHC RDW Std Deviation RDW Coeff of [place] Plt Count MPV Immature Gran % (Auto) Neut % (Auto) Lymph % (Auto) [place] % (Auto) Eos % (Auto) Baso % (Auto) Absolute Neuts (auto) Absolute Lymphs (auto) Nucleated RBC % PT INR Fibrinogen D-Dimer Quant (PE/DVT) Sodium Potassium Chloride Carbon Dioxide Anion Gap BUN Creatinine Estim Creat Clear Calc Est GFR (MDRD) Af Amer Est GFR (MDRD) Non-Af BUN/Creatinine Ratio Glucose Calcium Phosphorus Magnesium 1.9 Total Bilirubin AST ALT Alkaline Phosphatase Lactate Dehydrogenase 634 H Total Creatine Kinase 490 H Troponin I 0.024 C-React Prot Ext Range 56.50 H Total Protein Albumin Globulin Albumin/Globulin Ratio Procalcitonin 0.16 H Ur Random Sodium Urine Creatinine Urine Potassium Urine Chloride 01/27/21 01/27/21 01/28/21 17:45 20:50 05:50 WBC 8.0 RBC 5.18 Hgb 14.8 Hct 45.2 MCV 87.3 MCH 28.6 MCHC 32.7 RDW Std Deviation 44.4 H RDW Coeff of [place] 13.8 Plt Count 232 MPV 10.3 Immature Gran % (Auto) 0.900 Neut % (Auto) 75.8 H Lymph % (Auto) 12.8 L [place] % (Auto) 10.4 H Eos % (Auto) 0.0 Baso % (Auto) 0.1 Absolute Neuts (auto) 6.0 Absolute Lymphs (auto) 1.02 Nucleated RBC % 0 PT 13.8 INR 1.1 Fibrinogen 626 H D-Dimer Quant (PE/DVT) 1.23 H* Sodium Potassium Chloride Carbon Dioxide Anion Gap BUN Creatinine Estim Creat Clear Calc Est GFR (MDRD) Af Amer Est GFR (MDRD) Non-Af BUN/Creatinine Ratio Glucose Calcium Phosphorus Magnesium Total Bilirubin AST ALT Alkaline Phosphatase Lactate Dehydrogenase Total Creatine Kinase Troponin I C-React Prot Ext Range Total Protein Albumin Globulin Albumin/Globulin Ratio Procalcitonin Ur Random Sodium 9 Urine Creatinine 182.00 Urine Potassium 32.0 Urine Chloride < 10 01/28/21 01/28/21 05:50 05:50 WBC RBC Hgb Hct MCV MCH MCHC RDW Std Deviation RDW Coeff of [place] Plt Count MPV Immature Gran % (Auto) Neut % (Auto) Lymph % (Auto) [place] % (Auto) Eos % (Auto) Baso % (Auto) Absolute Neuts (auto) Absolute Lymphs (auto) Nucleated RBC % PT INR Fibrinogen D-Dimer Quant (PE/DVT) Sodium 139 Potassium 4.2 Chloride 101 Carbon Dioxide 33.0 H Anion Gap 5 BUN 27 H Creatinine 1.52 H Estim Creat Clear Calc 44.09 Est GFR (MDRD) Af Amer 59 L Est GFR (MDRD) Non-Af 49 L BUN/Creatinine Ratio 17.8 Glucose 146 H Calcium 8.2 L Phosphorus 3.3 Magnesium 2.2 Total Bilirubin 0.40 AST 59 H ALT 59 Alkaline Phosphatase 52 Lactate Dehydrogenase Total Creatine Kinase Troponin I C-React Prot Ext Range Total Protein 6.9 Albumin 2.7 L Globulin 4.2 Albumin/Globulin Ratio 0.6 L Procalcitonin Ur Random Sodium Urine Creatinine Urine Potassium Urine Chloride Micro: Microbiology 01/27/21 20:50 Urine, Clean Catch Legionella Antigen - Final 01/27/21 20:50 Urine, Clean Catch Streptococcus pneumoniae Antigen (M - Final 01/27/21 16:20 Mucosa - Nose Respiratory Panel (PCR) - Final 01/27/21 11:42 Mucosa - Nose SARS-CoV-2 Antigen (Rapid) - Final SARS-CoV-2 (COVID 19) ABG Data ABG results: ABG 01/27/21 14:29 Specimen Type ART Sample Site L Radial pH 7.43 Bicarbonate Actual 25.2 Total CO2 26 Base Excess 1 O2 Saturation 92 L O2 % 93 ABG pCO2 38.0 ABG pO2 62 L Brock Test Positive Clinical Comments airvo at 60lpm & 93% Physical Exam Narrative Physical exam General: Alert, Oriented x3, Cooperative HEENT: Atraumatic, PERRLA, EOMI, Normocephalic Oral: Oral mucosa dry. No Gingival or Mucosal Lesions/ Ulcerations Neck: Supple, No JVD, Negative Carotid Bruits Lungs: Air entry severely diminished in bilateral lung bases. Bilateral coarse crepitation present. Severe hypoxia and tachypnea Cardiovascular: Regular rate, Regular Rhythm, Normal S1, Normal S2, No murmurs Abdomen: Bowel Sounds Present, Soft, Non Tender, Non-Distended : No renal angle tenderness. No suprapubic tenderness. Extremities: No edema, Capillary Refill Less than 3 Seconds Skin: No rashes, No breakdown Musculoskeletal: No Tenderness to Palpation of Joints or Extremities Neurological: Cranial nerves II-XII grossly intact, Deep Tendon Reflexes 2+/4 and Symmetrical, Neuro grossly intact Psych/Mental Status: Normal Affect, Appropriate. Assessment & Plan Assessment/Plan (1) Acute and chronic respiratory failure with hypoxia: (2) Pneumonia due to COVID-19 virus: (3) Hypokalemia: (4) JODI (acute kidney injury): PLAN: 65-year-old gentleman admitted with severe hypoxia and tachypnea and chest x-ray finding consistent with bilateral COVID-19 pneumonia 1. Acute hypoxic respiratory failure secondary to bilateral COVID-19 pneumonia: ABG was done, 7.43//62 on 60 L, pulse ox 93% on airvo. Patient is being admitted in ICU. Children'S Service Supervisor and ID are consulted for comanagement. I talked to Dr. Davidson and we agreed for IV remdesivir. IV Decadron 6 mg daily. Oxy gen therapy. 01/28: Seen by insurance examining clerk. BiPAP support alternating with AIRVO. Inflammatory markers CK, LDH, CRP are elevated. Procalcitonin 0.16. D-dimer elevated. On empiric anticoagulation enoxaparin 129 every 12 until CTA angiogram is done. 2. Acute gastroenteritis: Patient diarrhea symptoms have resolved. On IV fluid Ringer lactate as potassium sodium are low. 3. Acute kidney injury mostly secondary to dehydration, prerenal etiology or JODI of CKD of unknown stage: IV fluid Ringer lactate. Urine lites ordered. Monitor kidney function if does not improve, kidney ultrasound consult cooking casing and drying supervisor. Last creatinine is 1.1 in June 2014 in our system 01/28: Creatinine improved from 1.85-1.52. 4. Patient history of gout and kidney stones. Patient states he might have hypertension. Patient has unknown medical history and does not follow physician. Patient is in non-smoker. VTE prophylaxis: As mentioned above. Total time of the visit including total time spent in counseling or coordination of care, (more than 50% of the total time, spent in obtaining medical informatio n from nurses and other ancillary care providers,explaining to the patient about labs, imaging, diagnosis and management), discussion with consultants insurance examining clerk and ID, review of labs and imaging is 30 minutes. Living will/advanced directive/end of life care: Patient does not have living will or advanced directive. His power of securities attorney for health is son. After discussion of benefits/risks procedures involved with full code, DNR CC arrest and DNR CC, the patient opted for full code. Patient does want artificial life support including intubation, tube feed, ventilator and/chest compression, central venous catheter, vasopressor and DC shock if needed Total time spent in [id number] encounter in discussion of advanced directive 16 minutes. Charges/Coding Visit Charges Inpatient E&M: 98600 Subs Hosp L3
--- NOTE | 2021-01-28 16:05 | CASEMGMT ---
RN CM NOTE: Pt currently on BIPAP. Only contact listed on demographics is pt's ex-. Assessment deferred at this time. RN DUDLEY to attempt at a later date. Ailyn DURANN RN CM
[2021-01-29] VITALS (46 sets, daily range): BP systolic 75–124; BP diastolic 48–89; PULSE 54–82; RESP 12–36; TEMP 34.9–38.2; O2SAT 80–98; BMI 40.6
--- NOTE | 2021-01-29 05:28 | PCM.PN.INT ---
Assessment & Plan Assessment/Plan (1) Pneumonia due to COVID-19 virus: PLAN: RECOMMENDATIONS: 1. Obtain sputum and send for culture. 2. Obtain arterial blood gas 1 hour post intubation. 3. Okay to initiate tube feeds today from my perspective. 4. Continue remdesivir as ordered. Continue to monitor liver and renal function. 5. Continue Decadron to complete 10-day treatment course. 6. Continue empiric therapeutic Lovenox twice daily. 7. Start appropriate GI prophylaxis. IMPRESSIONS: 1. Acute hypoxemic respiratory failure secondary to COVID-19 pneumonia The patient presented to the hospital with approximately 10 days of Covid symptoms and has had progressive decline in his respiratory status. Despite the use of positive pressure ventilatory support with an FiO2 of 100%, the patient continued to have marginal oxygen saturations. Therefore, the decision was made to proceed with intubation. Plan to continue current supportive measures including remdesivir and Decadron as ordered. Will obtain and send sputum for culture. Arterial blood gas will be obtained 1 hour post intubation. The patient is being continued on empiric therapeutic Lovenox, given elevated D-dimer at presentation. CTA was unable to be performed due to renal insufficiency. Tube feeds can be initiated today from my perspective. 2. Acute kidney injury Most likely prerenal in etiology and related to acute presentation. Creatinine has improved with volume expansion. Continue to monitor urine output. No current indication for renal replacement therapy. TIME: 42 minutes of critical care time, inclusive of procedures, was spent addressing the patient's acute hypoxemic respiratory failure, COVID-19 pneumonia, acute kidney injury, review of all data and collaboration with the care team. ([id number]) Subjective Subjective The patient was seen and examined at the bedside this morning. Events from the last 24 hours have been reviewed. The patient is currently afebrile, hemodynamically stable and maintaining appropriate oxygen saturations on BiPAP with an FiO2 requirement of 100%. The patient remains tachypneic. He is currently documented to be overall net +2.5 L for the hospital admission. The patient remains on remdesivir, Decadron and Lovenox. Despite noninvasive positive pressure ventilatory support, the patient has had no improvement in his overall oxygenation status and is still requiring maximal BiPAP support, with marginal oxygen saturations. I spoke to him again this morning at the bedside about my concern over his respiratory status. The patient did confirm that he is a full code and would desire intubation. Therefore, the decision was made to proceed with intubation. Intubation Indication: Respiratory failure Consent was obtained from: Patient The patient was placed in the appropriate sniffing position. Preoxygenated sedation via [id number] was provided for a minimum of 3 minutes. The patient had continuous cardiac as well as pulse oximetry monitoring during the procedure. Procedure sedation was provided by the administration of 4 mg of Versed, 20 mg of etomidate and 100 mg of succinylcholine. Direct laryngoscopy was then performed using a number 4 MAC blade, which revealed a grade 1 view. A 7.5 mm endotracheal tube was visualized advancing between the cords to the level of 23 cm at the lip. The stylette was then removed and discarded. Tube placement was confirmed by fogging in the tube along with equal and bilateral breath sounds. Colorimetric change was visualized on the CO2 meter. The cuff was then inflated and the tube secured using a commercially available device. A good pulse oximetry waveform was seen on the monitor throughout the procedure. A portable chest x-ray has been ordered to confirm appropriate placement. The patient tolerated the procedure well. Objective Data Objective Data The patient's most recent lab work, culture data and imaging studies have all been personally reviewed. Rapid coronavirus antigen testing was positive on January 27. Respiratory viral panel was negative. Strep and urine Legionella antigens were negative. Blood cultures are pending. Vital Signs: Vital Signs Temp Pulse Resp BP Pulse Ox 97.6 F L 59 L 35 H 102/67 90 01/29/21 04:00 01/29/21 04:00 01/29/21 04:00 01/29/21 04:00 01/29/21 04:00 Oxygen Flow Rate (L/min) 60 Oxygen Delivery Method Bi-pap Weight: 266 lb 12.149 oz Body Mass Index (BMI) 41.8 Intake & Output: Intake and Output for Last 24 Hours 01/27/21 01/28/21 01/29/21 23:59 23:59 23:59 Intake Total 1325 / 1325 2830 / 2830 Output Total 275 / 500 1275 / 1375 100 / 100 Balance 1050 / 825 1555 / 1455 -100 / -100 Lab / Micro Data Attestation: I reviewed the patient's lab results. Result Diagrams: 01/28/21 05:50 01/29/21 05:15 Labs: Laboratory Results - last 24 hr 01/28/21 01/28/21 01/28/21 05:50 05:50 05:50 WBC 8.0 RBC 5.18 Hgb 14.8 Hct 45.2 MCV 87.3 MCH 28.6 MCHC 32.7 RDW Std Deviation 44.4 H RDW Coeff of [place] 13.8 Plt Count 232 MPV 10.3 Immature Gran % (Auto) 0.900 Neut % (Auto) 75.8 H Lymph % (Auto) 12.8 L [place] % (Auto) 10.4 H Eos % (Auto) 0.0 Baso % (Auto) 0.1 Absolute Neuts (auto) 6.0 Absolute Lymphs (auto) 1.02 Nucleated RBC % 0 Sodium 139 Potassium 4.2 Chloride 101 Carbon Dioxide 33.0 H Anion Gap 5 BUN 27 H Creatinine 1.52 H Estim Creat Clear Calc 44.09 Est GFR (MDRD) Af Amer 59 L Est GFR (MDRD) Non-Af 49 L BUN/Creatinine Ratio 17.8 Glucose 146 H Calcium 8.2 L Phosphorus 3.3 Magnesium 2.2 Total Bilirubin 0.40 AST 59 H ALT 59 Alkaline Phosphatase 52 Total Protein 6.9 Albumin 2.7 L Globulin 4.2 Albumin/Globulin Ratio 0.6 L Micro: Microbiology 01/27/21 20:50 Urine, Clean Catch Legionella Antigen - Final 01/27/21 20:50 Urine, Clean Catch Streptococcus pneumoniae Antigen (M - Final 01/27/21 16:20 Mucosa - Nose Respiratory Panel (PCR) - Final 01/27/21 11:42 Mucosa - Nose SARS-CoV-2 Antigen (Rapid) - Final SARS-CoV-2 (COVID 19) Physical Exam Const alert and oriented x3 General Appearance: cooperative, well developed and on BiPAP HEENT normocephalic and head/scalp atraumatic Eyes PERRL, EOMs intact bilaterally and conjunctivae normal Neck supple General: trachea midline Resp Effort and Inspection: tachypneic Auscultation: diminished lung sounds; Negative for rales, rhonchi or wheezes Cardio regular rhythm, S1 normal heart sound and S2 normal heart sound Rate: bradycardia GI normal to inspection, nondistended, normoactive bowel sounds Extremity no clubbing, cyanosis or edema Skin no rashes or lesions noted Neuro CN's II-XII intact bilaterally, moves all extremities and no focal motor deficits Psych cooperative and affect normal Charges/Coding Procedures Hospitalists Procedures: [id number] Critial Care 1st Hr
[2021-01-29 05:43] LABS: ALB/GLOB Ratio 0.7 RATIO (0.9-2.4); AST(SGOT) 61 U/L (15-37); Alanine Aminotransfer ALT/SGPT 73 U/L (16-61); Albumin, Serum 2.6 g/dL (3.2-5.0); Alkaline Phosphatase 54 U/L (45-117); Anion Gap 8 (5-15); BUN 39 mg/dL (7-18); BUN/Creat Ratio 25.7 RATIO (10-20); Calcium,Total 8.2 mg/dL (8.5-10.1); Chloride 102 mmol/L (98-107); Creatinine, Serum 1.52 mg/dL (0.70-1.30); EST Glomerular Filtration Rate 49 mL/min (>60); Est Glom Filt Rate - Afr Amer 59 mL/min (>60); Estimated Creatinine Clearance 44.09 ml/min; Globulin 3.9 g/dL (2.2-4.2); Glucose 155 mg/dL (74-106); Potassium 4.2 mmol/L (3.5-5.1); Protein, Total 6.5 g/dL (6.4-8.2); Sodium Level 140 mmol/L (136-145)
[2021-01-29] MEDS: Midazolam 2 MG/2 ML Syringe 4 MG IV (06:30)
[2021-01-29] MEDS: Etomidate 20 MG/10 ML Vial IV (06:31)
[2021-01-29] MEDS: Phenylephrine 1 MG/10 ML SYRINGE 0.5 MG IV (06:38)
--- NOTE | 2021-01-29 06:53 | RAD_ITS ---
History: confirm et placement EXAMINATION/TECHNIQUE: XR Chest 1 View: Portable COMPARISON: January 27, 2021 FINDINGS: LINES/DEVICES: The tip of the endotracheal tube is 5 cm above the christie. Endogastric tube is present within the stomach. LUNGS: Patchy airspace opacification of both lungs not significantly changed from prior exam. No pneumothorax. MEDIASTINUM AND CARDIOVASCULAR STRUCTURES: Cardiac silhouette not enlarged. Central airways and mediastinal contour are unremarkable. BONES AND SOFT TISSUES: Unremarkable. RAD/Chest 1 View (Portable) IMPRESSION: Satisfactory intubation. Bilateral pneumonia. at 0834 Reported and signed by: Mariano Kaye MD Electronically Signed: Mariano Kaye MD at 8:33 EDT Tel , Service support ,
[2021-01-29] MEDS: Propofol 10MG/Ml 1,000 MG/100 ML Bottle 7.1 MG CONT INF ×2 (07:09→08:11)
--- NOTE | 2021-01-29 07:29 | NURSING ---
06: spoke to ex- Mónica via phone to update on planned intubation this morning, all questions answered 629: patient prepped for intubation, Dr. Bonner and respiratory at the bedside. versed 4mg IV x1 given 630: etomidate 20mg IV x1 given 35: Succ 100mg IV x1 given 0638: 7.5ETT placed by Dr. bonner, 23@lip, bilateral beath sounds auscultated, Alvarez 0.5mg IV x1 given 07: Spoke to ex-, Mónica and updated on patients' overall condition including vitals, all questions answered
[2021-01-29 07:30] LABS: CPK Total, Creatine Kinase 138 U/L (39-308); Triglycerides 68 mg/dL
[2021-01-29] MEDS: Ipratropium/Albuterol Sulfate 3 ML AMPUL.NEB INHALATION ×4 (07:33→19:07)
[2021-01-29 08:05] LABS: Allen Test Positive; Base Excess 1 mmol/L (-2 to +2); Blood Gas Specimen Type ART; FI02 100; Mode AC; O2 Delivery Device Adult Vent; PEEP 15; PO2 93 mmHG (75-100); RR 14; SITE R Radial; SO2 97 % (95-99); Total Carbon Dioxide 27 mmol/L; Vt 450; pCO2 43.9 mmHg (35-45); pH 7.38 (7.35-7.45)
--- NOTE | 2021-01-29 09:13 | PCM.PN.HOSP ---
Subjective Subjective Seen and examined. Patient was intubated in the morning. He is awake and oriented. On 65% FiO2 15 PEEP. I talked to the patient's as she had concern regarding the treatment of Covid and questions regarding transfer to higher tertiary care Objective Data Objective Data Vital Signs: Vital Signs Temp Pulse Resp BP Pulse Ox 99.2 F H 67 25 H 103/66 95 01/29/21 07:30 01/29/21 09:05 01/29/21 09:05 01/29/21 07:30 01/29/21 09:05 Oxygen Flow Rate (L/min) 60 Oxygen Delivery Method Mechanical Ventilator Weight: 259 lb 4.218 oz Body Mass Index (BMI) 41.8 Intake & Output: Intake and Output for Last 24 Hours 01/27/21 01/28/21 01/29/21 23:59 23:59 23:59 Intake Total 1325 / 1325 2830 / 2830 31.60 / 31.60 Output Total 275 / 500 1275 / 1375 400 / 400 Balance 1050 / 825 1555 / 1455 -368.40 / -368.40 Lab / Micro Data Result Diagrams: 01/28/21 05:50 01/29/21 05:15 Labs: Laboratory Results - last 24 hr 01/29/21 01/29/21 05:15 05:15 Sodium 140 Potassium 4.2 Chloride 102 Carbon Dioxide 30.0 Anion Gap 8 BUN 39 H Creatinine 1.52 H Estim Creat Clear Calc 44.09 Est GFR (MDRD) Af Amer 59 L Est GFR (MDRD) Non-Af 49 L BUN/Creatinine Ratio 25.7 H Glucose 155 H Calcium 8.2 L Total Bilirubin 0.40 AST 61 H ALT 73 H Alkaline Phosphatase 54 Total Creatine Kinase 138 Total Protein 6.5 Albumin 2.6 L Globulin 3.9 Albumin/Globulin Ratio 0.7 L Triglycerides 68 Micro: Microbiology 01/27/21 13:50 Blood Culture (Wb) - Left Hand Blood Culture - Preliminary No growth in 48 hours. 01/27/21 11:38 Blood Culture (Wb) - Anticubital Left Blood Culture - Preliminary No growth in 48 hours. 01/27/21 20:50 Urine, Clean Catch Legionella Antigen - Final 01/27/21 20:50 Urine, Clean Catch Streptococcus pneumoniae Antigen (M - Final 01/27/21 16:20 Mucosa - Nose Respiratory Panel (PCR) - Final 01/27/21 11:42 Mucosa - Nose SARS-CoV-2 Antigen (Rapid) - Final SARS-CoV-2 (COVID 19) ABG Data ABG results: ABG 01/29/21 07:57 Specimen Type ART Sample Site R Radial pH 7.38 Bicarbonate Actual 26.0 Total CO2 27 Base Excess 1 O2 Saturation 97 O2 % 100 ABG pCO2 43.9 ABG pO2 93 Brock Test Positive Respiration Rate 14 O2 Delivery Device Adult Vent Vent Mode AC Tidal Volume 450 POC PEEP 15 Radiography Diagnostic Testing: Radiology Impression Chest X-Ray 01/29/21 06:53 IMPRESSION: Satisfactory intubation. Bilateral pneumonia. at 0834 Reported and signed by: Mariano Kaye MD Electronically Signed: Mariano Kaye MD at 8:33 EDT Tel , Service support , Physical Exam Narrative Physical exam General: Awake. On vent support. Aware of surroundings. Oriented HEENT: Atraumatic, PERRLA, EOMI, Normocephalic Oral: Oral mucosa dry. No Gingival or Mucosal Lesions/ Ulcerations Neck: Supple, No JVD, Negative Carotid Bruits Lungs: Intubated on ventilator support. Air entry equal. Cardiovascular: Regular rate, Regular Rhythm, Normal S1, Normal S2, No murmurs Abdomen: Bowel Sounds Present, Soft, Non Tender, Non-Distended : No renal angle tenderness. No suprapubic tenderness. Extremities: No edema, Capillary Refill Less than 3 Seconds Skin: No rashes, No breakdown Musculoskeletal: No Tenderness to Palpation of Joints or Extremities Neurological: Cranial nerves II-XII grossly intact, Deep Tendon Reflexes 2+/4 and Symmetrical, Neuro grossly intact Psych/Mental Status: Awake. Assessment & Plan Assessment/Plan (1) Acute and chronic respiratory failure with hypoxia: (2) Pneumonia due to COVID-19 virus: (3) Hypokalemia: (4) JODI (acute kidney injury): PLAN: 65-year-old gentleman admitted with severe hypoxia and tachypnea and chest x-ray finding consistent with bilateral COVID-19 pneumonia 1. Acute hypoxic respiratory failure secondary to bilateral COVID-19 pneumonia: ABG was done, 7.43/38/62 on 60 L, pulse ox 93% on airvo. Patient is being admitted in ICU. Gypsum Roofer and ID are consulted for comanagement. I talked to Dr. Davidson and we agreed for IV remdesivir. IV Decadron 6 mg daily. Oxygen therapy. 01/28: Seen by enterprise solutions architect. BiPAP support alternating with AIRVO. Inflammatory markers CK, LDH, CRP are elevated. Procalcitonin 0.16. D-dimer elevated. On empiric anticoagulation enoxaparin 120 every 12 until CTA angiogram is done. 01/29: Patient was intubated peoplesoft programmer as required 100% FiO2 on BiPAP, patient remained tachypneic and no improvement. Patient agreed for intubation and was intubated. Furthermore I talked to the patient's ex-, Mrs. Sales.Daughterty and gave overall clinical update. She she wanted monoclonal antibody but was told it is contraindicated moderate to severe hypoxia and COVID-19 pneumonia. She had further concerns regarding newer treatments of COVID-19 stools and experimental stage and advised further talk to ID tomorrow. Questions were satisfactorily answered. She is okay with keeping the patient here 2. Acute gastroenteritis: Patient diarrhea symptoms have resolved. On IV fluid Ringer lactate as potassium sodium are low. 3. Acute kidney injury mostly secondary to dehydration, prerenal etiology or JODI of CKD of unknown stage: IV fluid Ringer lactate. Urine lites ordered. Monitor kidney function if does not improve, kidney ultrasound consult starch and prosize mixer. Last creatinine is 1.1 in June 2014 in our system 01/28: Creatinine improved from 1.85-1.52. 01/29: Creatinine remained stable 4. Patient history of gout and kidney stones. Patient states he might have hypertension. Patient has unknown medical history and does not follow physician. Patient is in non-smoker. VTE prophylaxis: As mentioned above. Total time of the visit including total time spent in counseling or coordination of care, (more than 50% of the total time, spent in obtaining medical information from nurses and other ancillary care providers,explaining to the patient about labs, imaging, diagnosis and management), discussion with consultants enterprise solutions architect and ID, review of labs and imaging is 30 minutes. Living will/advanced directive/end of life care: Patient does not have living will or advanced directive. His power of insurance attorney for health is son. After discussion of benefits/risks procedures involved with full code, DNR CC arrest and DNR CC, the patient opted for full code. Patient does want artificial life support including intubation, tube feed, ventilator and/chest compression, central venous catheter, vasopressor and DC shock if needed Total time spent in [id number] encounter in discussion of advanced directive 16 minutes. Charges/Coding Visit Charges Inpatient E&M: 36123 Subs Hosp L3
--- NOTE | 2021-01-29 10:47 | EX.NTREPO ---
Medical Nutrition Therapy - History Nutrition Services has been consulted to:: Manage enteral nutrition Current diet/nutrition support order:: Regular diet; Ensure pudding or magic cup Q meal - Anthropometric Measurements Height:: 5 ft 7 in Weight:: 117.6 kg Body Mass Index (BMI):: 40.6 - Relevant Labs Relevant Labs:: RDW Std Deviation 44.4 fl (35.1-43.9) H 01/28/21 05:50 Neut % (Auto) 75.8 % (47-70) H 01/28/21 05:50 Lymph % (Auto) 12.8 % (19-41) L 01/28/21 05:50 Bacon % (Auto) 10.4 % (0-10) H 01/28/21 05:50 Fibrinogen 626 mg/dl (203-444) H 01/27/21 17:45 D-Dimer Quant (PE/DVT) 1.23 FEU/ug/m (0.27-0.49) H* 01/27/21 17:45 Sodium 135 mmol/L (136-145) L 01/27/21 11:38 Potassium 3.3 mmol/L (3.5-5.1) L 01/27/21 11:38 Carbon Dioxide 33.0 mmol/L (21.0-32.0) H 01/28/21 05:50 BUN 39 mg/dL (7-18) H 01/29/21 05:15 Creatinine 1.52 mg/dL (0.70-1.30) H 01/29/21 05:15 Est GFR (MDRD) Af Amer 59 mL/min (>60) L 01/29/21 05:15 Est GFR (MDRD) Non-Af 49 mL/min (>60) L 01/29/21 05:15 BUN/Creatinine Ratio 25.7 RATIO (10-20) H 01/29/21 05:15 Glucose 155 mg/dL (74-106) H 01/29/21 05:15 Calcium 8.2 mg/dL (8.5-10.1) L 01/29/21 05:15 AST 61 U/L (15-37) H 01/29/21 05:15 ALT 73 U/L (16-61) H 01/29/21 05:15 Lactate Dehydrogenase 634 U/L (87-241) H 01/27/21 11:38 Total Creatine Kinase 490 U/L (39-308) H 01/27/21 11:38 C-React Prot Ext Range 56.50 mg/L (0.0-3.0) H 01/27/21 11:38 Albumin 2.6 g/dL (3.2-5.0) L 01/29/21 05:15 Albumin/Globulin Ratio 0.7 RATIO (0.9-2.4) L 01/29/21 05:15 Procalcitonin 0.16 ng/mL (0.00-0.09) H 01/27/21 11:38 - Assessment Food and Nutrient Intake: Wt noted down ~3.4 Kg since last review. Pt was taking PO yesterday but, intubated this morning--will make NPO and order TF support for nutrition per OLIVA Olivarez. - Nutrition Diagnosis: Intake Problem Inadequate Oral Intake Intake Problem - Etiology: related to intubation Intake Problem - Signs/Symptoms: as evidenced by NPO and need for enteral nutrition support Status: Active Problem - Nutrition Diagnosis: Clinical Problem Altered Nutrient-Related Laboratory Values Clinical Problem - Etiology: related to acute illness and medications Clinical Problem - Signs/Symptoms: as evidenced by gluc 155 Status: Active Problem - Protein Calorie Malnutrition Evidence of Malnutrition Exists: No - Nutrition Intervention Nutrition Prescription: Estimated nutrition needs~8566-5907 kcal (25 kcal/Kg adj wt) and ~110-115 gm pro (1.4 gm pro/Kg adj wt) per day. Estimated fluid needs~2000 ml/day (25 ml/Kg adj wt). - Food / Nutrient Delivery Interventions Summary of nutrition intervention:: Order/adjust enteral nutrition Nutrition support ordered as / adjusted to:: Start TF with Vital AF 1.2 Neo @ 25ml/hr and increase rate as tolerated by 10ml/hr Q 6-8 hrs to goal rate 65 ml/hr with 100ml water flush Q 4 hours to provide 1872 kcal, 117 gm protein and 1865 ml free water per day. Will change diet order to NPO. Will monitor TF tolerance, wt, labs and follow-up. Will manage and adjust TF as needed. Nutrition education provided?: No - MNT Monitoring Active Nutrition Patient: Yes Nutrition Status: Requires Follow Up 3-5 Days
[2021-01-29] MEDS: Enoxaparin 120 MG/0.8 ML Syringe SC ×2 (11:31→23:32)
[2021-01-29] MEDS: dexAMETHasone 10 MG/ML Vial IV (11:32)
[2021-01-29] MEDS: 0.9% Saline Lock 10 ML Syringe IV ×2 (11:38→23:34)
[2021-01-29] MEDS: Lansoprazole 15 MG Capsule.DR 30 MG GT (15:21)
[2021-01-29] MEDS: Vital AF 1.2 Cal Liquid 1,000 ML 65 ML NG (15:22)
[2021-01-29] MEDS: Propofol 10MG/Ml 1,000 MG/100 ML Bottle 21.2 MG CONT INF (15:23)
[2021-01-29] MEDS: Propofol 10MG/Ml 1,000 MG/100 ML Bottle 17.6 MG CONT INF (19:30)
[2021-01-30] VITALS (37 sets, daily range): BP systolic 89–130; BP diastolic 53–67; PULSE 58–74; RESP 14–24; TEMP 36.3–36.9; O2SAT 81–98
[2021-01-30 00:56] LABS: Base Excess 1 mmol/L (-2 to +2); Bicarbonate 26.6 mmol/L (22-26); Blood Gas Specimen Type ART; FI02 100; Mode AC; O2 Delivery Device Adult Vent; PEEP 16; PO2 49 mmHG (75-100); RR 14; SITE L Radial; SO2 82 % (95-99); Total Carbon Dioxide 28 mmol/L; Vt 450; pH 7.34 (7.35-7.45)
--- NOTE | 2021-01-30 01:12 | RAD_ITS ---
STUDY: X-RAY CHEST REASON FOR EXAM: Male, 65 years old. ET tube placement. TECHNIQUE: Single AP portable view of the chest. COMPARISON: January 29, 2021. FINDINGS: The endotracheal tube tip 5.2 cm above the christie. Enteric tube tip at least in the gastric fundus off the inferior margin of the study. Patchy density left lung base unchanged. No effusions. No pneumothorax. Normal size heart. Normal mediastinum and tan. Normal visualized pulmonary arteries. Normal visualized aortic arch and descending thoracic aorta. Normal visualized thoracic spine. Normal visualized ribs, clavicles, and shoulders. There is no demonstrated abnormality of the visualized soft tissue structures of the upper abdomen. RAD/Chest 1 View (Portable) IMPRESSION: Support tubes in their expected locations. Left basilar pneumonia unchanged. Electronically Signed: Link Golden MD at 2:28 EDT , Service support ,
[2021-01-30] MEDS: Propofol 10MG/Ml 1,000 MG/100 ML Bottle 35.3 MG CONT INF ×2 (01:27→04:17)
--- NOTE | 2021-01-30 03:11 | PCM.RX.CS ---
Consult Pharmacy has been consulted to manage selected antiobiotic: Vancomycin Type of Consult: New start Labs: Sodium 140 mmol/L (136-145) 01/29/21 05:15 Potassium 4.2 mmol/L (3.5-5.1) 01/29/21 05:15 Chloride 102 mmol/L (98-107) 01/29/21 05:15 Carbon Dioxide 30.0 mmol/L (21.0-32.0) 01/29/21 05:15 Anion Gap 8 (5-15) 01/29/21 05:15 BUN 39 mg/dL (7-18) H 01/29/21 05:15 Creatinine 1.52 mg/dL (0.70-1.30) H 01/29/21 05:15 Est GFR (MDRD) Af Amer 59 mL/min (>60) L 01/29/21 05:15 Est GFR (MDRD) Non-Af 49 mL/min (>60) L 01/29/21 05:15 BUN/Creatinine Ratio 25.7 RATIO (10-20) H 01/29/21 05:15 Glucose 155 mg/dL (74-106) H 01/29/21 05:15 Microbiology: Microbiology 01/27/21 07:50 Sputum, Expectorated/Coughed Gram Stain - Final 01/27/21 13:50 Blood Culture (Wb) - Left Hand Blood Culture - Preliminary No growth in 48 hours. 01/27/21 11:38 Blood Culture (Wb) - Anticubital Left Blood Culture - Preliminary No growth in 48 hours. 01/27/21 20:50 Urine, Clean Catch Legionella Antigen - Final 01/27/21 20:50 Urine, Clean Catch Streptococcus pneumoniae Antigen (M - Final 01/27/21 16:20 Mucosa - Nose Respiratory Panel (PCR) - Final 01/27/21 11:42 Mucosa - Nose SARS-CoV-2 Antigen (Rapid) - Final SARS-CoV-2 (COVID 19) Weight used for dosin.6 kg Estimated Creatinine Clearance: 57.8 Goal Trough: 15-20 mcg/mL Pharmacy Plan for Drug Dosing: Pharmacy Service will continue to monitor and adjust dosing as required. Medications Vancomycin HCl 2,000 mg/ (Sodium Chloride) 540 mls @ 250 mls/hr IV X1 ONE Stop: 01/30/21 03:39 Last Admin: 01/30/21 02:31 Dose: 250 mls/hr Documented by: Vancomycin HCl 1,250 mg/ (Sodium Chloride) 275 mls @ 167 mls/hr IV Q12H CAITLIN Follow-Up Labs: Trough Vancomycin Labs to be done on [date and time ordered]: 01/31 @ 1400
[2021-01-30 03:51] LABS: Base Excess 1 mmol/L (-2 to +2); Bicarbonate 28.4 mmol/L (22-26); Blood Gas Specimen Type ART; FI02 100; Mode AC; O2 Delivery Device Adult Vent; PEEP 16; PO2 76 mmHG (75-100); RR 14; SITE L Radial; SO2 91 % (95-99); Total Carbon Dioxide 31 mmol/L; Vt 450; pCO2 69.4 mmHg (35-45); pH 7.22 (7.35-7.45)
[2021-01-30] MEDS: TITRATION PARAMETER CHANGE 1 EACH IV (05:38)
[2021-01-30] MEDS: Propofol 10MG/Ml 1,000 MG/100 ML Bottle 34.7 MG CONT INF ×2 (06:36→08:59)
--- NOTE | 2021-01-30 07:05 | PCM.PN.INT ---
Assessment & Plan Assessment/Plan (1) Pneumonia due to COVID-19 virus: PLAN: RECOMMENDATIONS: 1. Continue broad-spectrum antibiotics. 2. Increase tidal volume to 500 cc. 3. Continue tube feeds 4. Continue remdesivir and Decadron as ordered. Continue to monitor liver and renal function. 5. Await morning labs with supplementation as necessary 6. Continue therapeutic Lovenox and GI prophylaxis 7. Wean oxygen as tolerated IMPRESSIONS: 1. Acute hypoxemic respiratory failure secondary to COVID-19 pneumonia The patient presented to the hospital with approximately 10 days of Covid symptoms and has had progressive decline in his respiratory status. Despite the use of positive pressure ventilatory support with an FiO2 of 100%, the patient continued to have marginal oxygen saturations. Therefore, the decision was made to proceed with intubation on 01/29/2021. Plan to continue current supportive measures including remdesivir and Decadron as ordered. Patient does have a significant left lower lobe infiltrate. This may indicate a concomitant bacterial pneumonia. 2. Acute kidney injury Most likely prerenal in etiology and related to acute presentation. Creatinine has improved with volume expansion. Continue to monitor urine output. No current indication for renal replacement therapy. 3. Morbid obesity/delayed presentation Complicates care, management, recovery and prognosis. Continue to monitor. Dietitian to assist with tube feed orders. TIME: 42 minutes of critical care time, inclusive of procedures, was spent addressing the patient's acute hypoxemic respiratory failure, COVID-19 pneumonia, acute kidney injury, review of all data and collaboration with the care team. (6 AM to 7 AM) Subjective Subjective Patient with significant decompensation overnight. Ventilation has been difficult with significant hypoxia. There was consideration for possible paralysis overnight, but BIS score did not allow for initiation. Hypoxia slightly improved this morning. ABG continues to show permissive hypercapnia. Patient has not required any pressors, but did spike a fever overnight. Objective Data Objective Data Vital Signs: Vital Signs Temp Pulse Resp BP Pulse Ox 36.7 C 61 14 99/66 93 01/30/21 06:00 01/30/21 06:58 01/30/21 06:58 01/30/21 06:00 01/30/21 06:58 Oxygen Flow Rate (L/min) 60 PEEP 16 Oxygen Delivery Method Mechanical Ventilator Weight: 115.7 kg Body Mass Index (BMI) 40.6 Intake & Output: Intake and Output for Last 24 Hours 01/28/21 01/29/21 01/30/21 23:59 23:59 23:59 Intake Total 2830 / 2830 1030.88 / 1292.66 1182.17 / 1182.17 Output Total 1275 / 1375 1150 / 1350 300 / 300 Balance 1555 / 1455 -119.12 / -57.34 882.17 / 882.17 Lab / Micro Data Result Diagrams: 01/28/21 05:50 01/29/21 05:15 Labs: Laboratory Results - last 24 hr 01/29/21 05:15 Total Creatine Kinase 138 Triglycerides 68 Micro: Microbiology 01/27/21 07:50 Sputum, Expectorated/Coughed Gram Stain - Final 01/27/21 13:50 Blood Culture (Wb) - Left Hand Blood Culture - Preliminary No growth in 48 hours. 01/27/21 11:38 Blood Culture (Wb) - Anticubital Left Blood Culture - Preliminary No growth in 48 hours. 01/27/21 20:50 Urine, Clean Catch Legionella Antigen - Final 01/27/21 20:50 Urine, Clean Catch Streptococcus pneumoniae Antigen (M - Final 01/27/21 16:20 Mucosa - Nose Respiratory Panel (PCR) - Final 01/27/21 11:42 Mucosa - Nose SARS-CoV-2 Antigen (Rapid) - Final SARS-CoV-2 (COVID 19) ABG Data ABG results: ABG 01/29/21 01/30/21 01/30/21 07:57 00:51 03:42 Specimen Type ART ART ART Sample Site R Radial L Radial L Radial pH 7.38 7.34 L 7.22 L Bicarbonate Actual 26.0 26.6 H 28.4 H Total CO2 27 28 31 Base Excess 1 1 1 O2 Saturation 97 82 L 91 L O2 % 100 100 100 ABG pCO2 43.9 49.0 H 69.4 H* ABG pO2 93 49 L 76 Brock Test Positive N/A N/A Respiration Rate 14 14 14 O2 Delivery Device Adult Vent Adult Vent Adult Vent Vent Mode AC AC AC Tidal Volume 450 450 450 POC PEEP 15 16 16 Crit Call To/Read Back Yes Blood Gas Notified Whom hodan ureña Radiography Diagnostic Testing: Radiology Impression Chest X-Ray 01/29/21 06:53 IMPRESSION: Satisfactory intubation. Bilateral pneumonia. at 0834 Reported and signed by: Mariano Kaye MD Electronically Signed: Mariano Kaye MD at 8:33 EDT Tel , Service support , Chest X-Ray 01/30/21 01:12 IMPRESSION: Support tubes in their expected locations. Left basilar pneumonia unchanged. Electronically Signed: Link Golden MD at 2:28 EDT , Service support , Physical Exam Const General Appearance: well developed and patient mechanically ventilated Orientation / Consciousness: obtunded Nutritional Appearance: morbidly obese Eyes Eyes Narrative: Scleral injection without icterus Neck No nuchal rigidity, supple and no meningeal signs Lymph Lymphatic: no lymphadenopathy noted Chest inspection of chest normal Chest: symmetrical chest wall rise Resp Auscultation: diminished lung sounds; Negative for rales, rhonchi or wheezes Cardio S1 normal heart sound, S2 normal heart sound, no murmurs, no rub, no gallops and peripheral pulses 2+ throughout; Negative for diaphoretic GI normal to inspection, nondistended, normoactive bowel sounds Extremity General Extremity: edema bilateral (1+); Negative for clubbing or cyanosis Skin no rashes or lesions noted Neuro Neuro Narrative: RASS -3. Some spontaneous movement noted. Psych Appearance: intubated Charges/Coding Procedures Hospitalists Procedures: 21553 Critial Care 1st Hr
--- NOTE | 2021-01-30 09:30 | CASEMGMT ---
RN CM participated in interdisciplinary rounds. Patient is currently intubated and on 100% FiO2. Ex , Mónica, participated in rounds via telephone. CM will attempt to complete assessment with Mónica at later time. CM will continue to follow this patient and plan for a safe discharge.
--- NOTE | 2021-01-30 10:14 | PCM.PN.HOSP ---
Subjective Subjective Intubated and sedated. He is vent requirements have gone up overnight and there was consideration of possible need for paralysis overnight. Objective Data Objective Data Vital Signs: Vital Signs Temp Pulse Resp BP Pulse Ox 97.7 F L 63 14 92/58 L 97 01/30/21 08:00 01/30/21 09:00 01/30/21 09:00 01/30/21 09:00 01/30/21 09:00 Oxygen Flow Rate (L/min) 100 Oxygen Delivery Method Mechanical Ventilator Weight: 255 lb 1.197 oz Body Mass Index (BMI) 40.6 Intake & Output: Intake and Output for Last 24 Hours 01/29/21 01/30/21 01/31/21 03:59 03:59 03:59 Intake Total 1830 / 1830 1411.95 / 1532.25 1365.60 / 1365.60 Output Total 1150 / 1150 1250 / 1250 150 / 150 Balance 680 / 680 161.95 / 282.25 1215.60 / 1215.60 Lab / Micro Data Result Diagrams: 01/31/21 04:15 01/31/21 04:15 Micro: Microbiology 01/27/21 07:50 Sputum, Expectorated/Coughed Gram Stain - Final 01/27/21 13:50 Blood Culture (Wb) - Left Hand Blood Culture - Preliminary No growth in 48 hours. 01/27/21 11:38 Blood Culture (Wb) - Anticubital Left Blood Culture - Preliminary No growth in 48 hours. 01/27/21 20:50 Urine, Clean Catch Legionella Antigen - Final 01/27/21 20:50 Urine, Clean Catch Streptococcus pneumoniae Antigen (M - Final 01/27/21 16:20 Mucosa - Nose Respiratory Panel (PCR) - Final 01/27/21 11:42 Mucosa - Nose SARS-CoV-2 Antigen (Rapid) - Final SARS-CoV-2 (COVID 19) ABG Data ABG results: ABG 01/30/21 01/30/21 00:51 03:42 Specimen Type ART ART Sample Site L Radial L Radial pH 7.34 L 7.22 L Bicarbonate Actual 26.6 H 28.4 H Total CO2 28 31 Base Excess 1 1 O2 Saturation 82 L 91 L O2 % 100 100 ABG pCO2 49.0 H 69.4 H* ABG pO2 49 L 76 Brock Test N/A N/A Respiration Rate 14 14 O2 Delivery Device Adult Vent Adult Vent Vent Mode AC AC Tidal Volume 450 450 POC PEEP 16 16 Crit Call To/Read Back Yes Blood Gas Notified Whom hodan ureña Radiography Diagnostic Testing: Radiology Impression Chest X-Ray 01/30/21 01:12 IMPRESSION: Support tubes in their expected locations. Left basilar pneumonia unchanged. Electronically Signed: Link Golden MD at 2:28 EDT , Service support , Physical Exam Const General Appearance: intubated and patient mechanically ventilated Nutritional Appearance: morbidly obese HEENT Head and Scalp: normocephalic Mouth: dry mucous membranes Eyes PERRL Neck supple and no JVD Resp Auscultation: diminished lung sounds; Negative for crackles, rales, rhonchi or wheezes Cardio regular rate, regular rhythm, S1 normal heart sound, S2 normal heart sound and no murmurs GI soft to palpation and non-distended; Negative for hepatosplenomegaly Extremity General Extremity: edema bilateral lower extremity Details: trace Skin no rashes or lesions noted Neuro Sensorium / Orientation: sedated on vent RASS: -3 Psych Appearance: intubated Assessment & Plan Assessment/Plan (1) Acute and chronic respiratory failure with hypoxia: (2) Pneumonia due to COVID-19 virus: (3) Hypokalemia: (4) JODI (acute kidney injury): PLAN: 65-year-old gentleman admitted with severe hypoxia and tachypnea and chest x-ray finding consistent with bilateral COVID-19 pneumonia 1. Acute hypoxic respiratory failure secondary to bilateral COVID-19 pneumonia: ABG was done, 7.43/38/62 on 60 L, pulse ox 93% on airvo. Patient is being admitted in ICU. Radioactivity Technician and ID are consulted for comanagement. I talked to Dr. Davidson and we agreed for IV remdesivir. IV Decadron 6 mg daily. Oxygen therapy. 01/28: Seen by technical specialist cytology. BiPAP support alternating with AIRVO. Inflammatory markers CK, LDH, CRP are elevated. Procalcitonin 0.16. D-dimer elevated. On empiric anticoagulation enoxaparin 120 every 12 until CTA angiogram is done. 01/29: Patient was intubated office engineer as required 100% FiO2 on BiPAP, patient remained tachypneic and no improvement. Patient agreed for intubation and was intubated. Furthermore I talked to the patient's ex-, Mrs. Sales.Daughterty and gave overall clinical update. She she wanted monoclonal antibody but was told it is contraindicated moderate to severe hypoxia and COVID-19 pneumonia. She had further concerns regarding newer treatments of COVID-19 stools and experimental stage and advised further talk to ID tomorrow. Questions were satisfactorily answered. She is okay with keeping the patient here -01/30/2021: Ventilation was difficult overnight per the technical specialist cytology, no paralysis was needed and his hypoxia did improve a little bit, will continue with Zosyn but discontinue his vancomycin 2. Acute gastroenteritis: Patient diarrhea symptoms have resolved. On IV fluid Ringer lactate as potassium sodium are low. 3. Acute kidney injury mostly secondary to dehydration, prerenal etiology or JODI of CKD of unknown stage: IV fluid Ringer lactate. Urine lites ordered. Monitor kidney function if does not improve, kidney ultrasound consult turning machine operator. Last creatinine is 1.1 in June 2014 in our system 01/28: Creatinine improved from 1.85-1.52. 01/29: Creatinine remained stable 4. Patient history of gout and kidney stones. Patient states he might have hypertension. Patient has unknown medical history and does not follow physician. Patient is in non-smoker. DVT: Therapeutic Lovenox Charges/Coding Visit Charges Inpatient E&M: 03713 Subs Hosp L2
--- NOTE | 2021-01-30 10:45 | CASEMGMT ---
SW participated in ICU rounds, called ex Mónica after rounds to offer support. She states she is okay. She confirms is ex but is POA, states she is putting my daughter in charge however as she is getting overwhelmed with calls. SW explained to Mónica if she needs any support to call in to ICU and ask for SW. Mónica thanked SW for checking in, SW remains available for support to family and for discharge needs as appropriate. NIA Aranda
[2021-01-30] MEDS: Propofol 10MG/Ml 1,000 MG/100 ML Bottle 31.2 MG CONT INF (10:51)
[2021-01-30] MEDS: Enoxaparin 120 MG/0.8 ML Syringe SC ×2 (10:53→22:17)
[2021-01-30] MEDS: dexAMETHasone 10 MG/ML Vial IV (10:53)
[2021-01-30] MEDS: CHLORHEXIDINE GLUC 2% CLOTH 1 EACH TOWELETTE TOPICAL (10:53)
[2021-01-30] MEDS: Chlorhexidine 15 ML PO ×2 (10:54→22:17)
[2021-01-30] MEDS: Ipratropium/Albuterol Sulfate 3 ML AMPUL.NEB INHALATION ×3 (11:02→19:59)
[2021-01-30] MEDS: Propofol 10MG/Ml 1,000 MG/100 ML Bottle 20.8 MG CONT INF (12:38)
--- NOTE | 2021-01-30 14:04 | PCM.CONS.GEN ---
Assessment & Plan Assessment/Plan (1) Acute and chronic respiratory failure with hypoxia: (2) Pneumonia due to COVID-19 virus: PLAN: Covid with hypoxia, now on vent with 100% O2. On dex and remdesivir. Meets criteria for tocilizumab, will start. D/w his ex-. On therapeutic lovenox. Repeat sputum cx, on empiric vanc/zosyn. Will follow, thank you (3) JODI (acute kidney injury): HPI Consult Data Date of Consult: 01/30/21 HPI Narrative HPI Narrative: GILBERTO DAHL, is a 65 M who presented 01/27 with mild symptoms which started about 10 days prior, then 3-4 days of much worse fatigue, dyspnea, cough, diarrhea, chills, aches. Has not gotten covid vaccine. Admitted on dex and remdesivir. Resp status worsened, intubated 01/29. Vanc/zosyn started. Now on 100% fiO2. ROS unobtainable due to intubation/sedation. Additional history obtained from ex-; she has covid and is scheduled to get Regeneron infusion. [facility] Medical History Gout Kidney stones Home Medications NK 01/27/21 [History Last Taken Unknown] Allergy/AdvReac Type Severity Reaction Status Date / Time No Known Allergies Allergy Verified 01/27/21 11:04 Family History (Updated 01/27/21 @ 14:[address] Rodri Joyce MD) Father Cancer Surgical History History of arthroscopic knee surgery Social History Smoking Status: Never smoker Physical Exam Const Constitutional Narrative: ill appearing HEENT normocephalic and head/scalp atraumatic Eyes PERRL and EOMs intact bilaterally Neck supple and No nodes Resp Effort and Inspection: mechanically ventilated Auscultation: diminished lung sounds Cardio regular rate and regular rhythm GI normal to inspection, nondistended, normoactive bowel sounds Extremity no clubbing, cyanosis or edema Skin no rashes or lesions noted Neuro CN's II-XII intact bilaterally Lab / Micro Data Result Diagrams: 01/28/21 05:50 01/29/21 05:15 Micro: Microbiology 01/27/21 07:50 Gram Stain - Final Sputum, Expectorated/Coughed Respiratory Culture - Preliminary Appears to be normal respiratory nikki. Further studies to follow. ABG Data ABG results: ABG 01/30/21 01/30/21 00:51 03:42 Specimen Type ART ART Sample Site L Radial L Radial pH 7.34 L 7.22 L Bicarbonate Actual 26.6 H 28.4 H Total CO2 28 31 Base Excess 1 1 O2 Saturation 82 L 91 L O2 % 100 100 ABG pCO2 49.0 H 69.4 H* ABG pO2 49 L 76 Brock Test N/A N/A Respiration Rate 14 14 O2 Delivery Device Adult Vent Adult Vent Vent Mode AC AC Tidal Volume 450 450 POC PEEP 16 16 Crit Call To/Read Back Yes Blood Gas Notified Whom hodan ureña Radiology Impression Chest X-Ray 01/30/21 01:12 IMPRESSION: Support tubes in their expected locations. Left basilar pneumonia unchanged. Electronically Signed: Link Golden MD at 2:28 EDT , Service support ,
--- NOTE | 2021-01-30 14:35 | CASEMGMT ---
OLIVA BUCKNER called HPMónica SANCHEZ for initial transition planning/care coordination assessment, as patient is ventilated at this time and unable to participate in assessment. OLIVA BUCKNER introduced self and role at [facility]. Mónica willing to participate in assessment and is able to answer all questions appropriately. Care providers, pharmacy, and demographics verified. Mónica wishes for patient to discharge home, will monitor for needf or HHC vs SNF pending progress with therapy. Mónica states she has no further needs or concerns at this time. CM to follow for discharge planning needs that may arise. PCP: Believes patient made appt with Dr. Montejo Specialists: none Preferred Pharmacy: [facility] Insurance: [employer] Prescription Benefit: yes Living Will/HPOA: yes, ex- Mónica LNOK: daughter, ex- Living Arrangements: Patient lives alone in a 2 story home with bed and bath on second floor. Patient normally independent and able to ambulate stairs per Mónica Transportation: self, ex- DME/HHC: Mónica states that patient does not have DME at home. No previous HHC or SNF. Disposition Plan: TBD, SNF vs HHC penidng course of treatment and progress with therapy. Estelita ARMENTA, RN, CM
--- NOTE | 2021-01-30 15:19 | CHAPLAIN ---
Type of Pastoral Visit ___ Initial Visit ___ Follow-up Visit ___ On-call Visit ___ General Patient Visit ___ Spiritual Assessment ___ Family Conference ___ Bereavement ___ Rapid Response ___ Code Blue ___ Other (describe below) Pastoral Care Referral From ___ Patient ___ Family ___ Nurse ___ Physician ___ Tool And Machine Maintainer ___ Managing Director [employer] ___ Other (describe below) Sacrament/Intervention ___ Active listening ___ Anointing ___ Episcopal ___ Bereavement ___ Communion ___ Delma exploration ___ ___ Life review ___ Prayer ___ Reconciliation ___ Sacrament of Sick ___ Supportive presence ___ Wedding ___ Other (describe below) Pastoral Comments patient is on the vent and is sedated at this time; visit is not possible
[2021-01-30] MEDS: Lansoprazole 15 MG Capsule.DR 30 MG GT (15:34)
[2021-01-30] MEDS: Vital AF 1.2 Cal Liquid 1,000 ML 65 ML NG (15:35)
--- NOTE | 2021-01-30 18:30 | NURSING ---
Seizure like activity observed by this RN. Patient began having tremors to left arm, left shoulder and right hand. Patients face also became very tense. O2 saturations dropped to 75%. [address] Freeman notified and ativan 2mg IV x 1 ordered. Ativan 2mg given at 1837, tremors stopped after medication given and 02 sats increased to 96% on 85% fio2.
[2021-01-30] MEDS: Insulin Lispro 100 UNIT/ML INSULN.PEN SC ×2 (18:32→23:53)
[2021-01-30] MEDS: LORazepam 2 MG/ML Syringe IV (18:37)
[2021-01-30] MEDS: Propofol 10MG/Ml 1,000 MG/100 ML Bottle 10.4 MG CONT INF (19:00)
[2021-01-30] MEDS: 0.9% Saline Lock 10 ML Syringe IV (19:43)
--- NOTE | 2021-01-30 19:50 | NURSING ---
Pt sao2 decreased to 77%, increased fio2 to 100% after suctioning and repositioning. Jackson from PSN called to room, treatment given.
--- NOTE | 2021-01-30 20:13 | NURSING ---
FiO2 decreased to 95% per Jackson
[2021-01-31] VITALS (32 sets, daily range): BP systolic 110–134; BP diastolic 57–68; PULSE 64–78; RESP 14–23; TEMP 36.8–37.6; O2SAT 90–97; BMI 41.1
[2021-01-31] MEDS: Propofol 10MG/Ml 1,000 MG/100 ML Bottle 6.9 MG CONT INF ×3 (04:35→18:51)
[2021-01-31 04:37] LABS: Hematocrit 44.2 % (40-54); Hemoglobin 13.7 g/dL (13.0-16.5); Mean Corpuscular Hgb 28.4 pg (27.0-32.0); Mean Corpuscular Volume 91.5 fL (80-94); Mean Platelet Vol. 11.5 fl (6.2-12.0); POSITIVE COUNT YES; POSITIVE MORPHOLOGY YES; Platelet Count 259 K/mm3 (150-450); RBC Distribution Width CV 14.2 % (11.6-14.6); RBC Distribution Width SD 48.3 fl (35.1-43.9); Red Blood Count 4.83 M/mm3 (4.6-6.2); White Blood Count 13.7 K/mm3 (4.4-11.0)
[2021-01-31 04:40] LABS: Differential Indicated MANUAL DIFF
[2021-01-31 04:50] LABS: Total Cells Counted 100 (MANUAL DIFF)
[2021-01-31 04:53] LABS: Lymphocyte 3 % (19-41); Metamyelocyte 1 % (0-1); Monocyte 6 % (0-10); Myelocyte 1 % (0-0); Neutrophil-Band 2 % (0-5); Neutrophil-Segmented 87 % (47-70)
[2021-01-31 04:54] LABS: Platelet Estimate ADEQUATE (ADEQ); Red Cell Morphology NORM C+C NORMAL (NORM C&C)
[2021-01-31 04:55] LABS: Absolute Lymphocyte Count 0.41 X10^3/uL (0.83-4.51); Absolute Neutrophil Count 12.2 X10^3/uL (2.0-7.7); Lymphocyte # 0.41 X10^3/ul (0.83-4.51); Neutrophil # 12.22 X10^3/uL (2.7-7.7)
[2021-01-31 05:09] LABS: ALB/GLOB Ratio 0.6 RATIO (0.9-2.4); AST(SGOT) 67 U/L (15-37); Alanine Aminotransfer ALT/SGPT 92 U/L (16-61); Albumin, Serum 2.3 g/dL (3.2-5.0); Alkaline Phosphatase 56 U/L (45-117); Anion Gap 6 (5-15); BUN 75 mg/dL (7-18); BUN/Creat Ratio 32.8 RATIO (10-20); Calcium,Total 7.2 mg/dL (8.5-10.1); Chloride 104 mmol/L (98-107); Creatinine, Serum 2.29 mg/dL (0.70-1.30); EST Glomerular Filtration Rate 30 mL/min (>60); Est Glom Filt Rate - Afr Amer 37 mL/min (>60); Estimated Creatinine Clearance 29.27 ml/min; Globulin 3.8 g/dL (2.2-4.2); Glucose 311 mg/dL (74-106); Protein, Total 6.1 g/dL (6.4-8.2); Sodium Level 140 mmol/L (136-145)
[2021-01-31] MEDS: Ipratropium/Albuterol Sulfate 3 ML AMPUL.NEB INHALATION ×5 (06:44→22:24)
[2021-01-31] MEDS: Insulin Lispro 100 UNIT/ML INSULN.PEN SC ×3 (06:46→17:03)
--- NOTE | 2021-01-31 07:14 | PN.CC_ITS ---
Assessment & Plan Assessment/Plan (1) Pneumonia due to COVID-19 virus: PLAN: RECOMMENDATIONS: 1. Continue broad-spectrum antibiotics. 2. Continue mechanical ventilation. Wean FiO2 as tolerated 3. Continue tube feeds 4. Continue remdesivir and Decadron as ordered. Continue to monitor liver and renal function. 5. Await results of EEG prior to starting Keppra. Ativan as needed in the interim 6. Continue therapeutic Lovenox and GI prophylaxis 7. Hold on Actemra per infectious disease IMPRESSIONS: 1. Acute hypoxemic respiratory failure secondary to COVID-19 pneumonia The patient presented to the hospital with approximately 10 days of Covid symptoms and has had progressive decline in his respiratory status. Despite the use of positive pressure ventilatory support with an FiO2 of 100%, the patient continued to have marginal oxygen saturations. Therefore, the decision was made to proceed with intubation on 01/29/2021. Plan to continue current supportive measures including remdesivir and Decadron as ordered. Continue with empiric antibiotics per infectious disease. Actemra on hold. Marginal improvement in oxygenation. Anticipate decreasing to 60% FiO2 before any change in PEEP. 2. Acute kidney injury Most likely prerenal in etiology and related to acute presentation. Creatinine worsened overnight. Continue to monitor urine output. No current indication for renal replacement therapy. Patient may have a prerenal etiology secondary to extravasation with the development of anasarca. No indication for pressors at this time. We will continue to monitor 3. Morbid obesity/delayed presentation Complicates care, management, recovery and prognosis. Continue to monitor. Dietitian to assist with tube feed orders. TIME: 40 minutes of critical care time, inclusive of procedures, was spent addr essing the patient's acute hypoxemic respiratory failure, COVID-19 pneumonia, acute kidney injury, review of all data and collaboration with the care team. (6:15 AM to 7:15 AM) Subjective Subjective Patient did okay overnight from a hemodynamic standpoint. No pressors have been required and patient ultimately was able to be weaned to 85%. Patient did have questionable seizure activity associated with the infusion of Actemra. Infectious disease was notified and this was discontinued. Patient was given 2 mg of Ativan with cessation. No recurrence has been noted. Patient is receiving an EEG this morning. Objective Data Objective Data Vital Signs: Vital Signs Temp Pulse Resp BP Pulse Ox 37.3 C H 75 14 134/67 H 94 06/22/21 07:00 01/31/21 07:00 01/31/21 07:00 01/31/21 07:00 01/31/21 07:00 Oxygen Flow Rate (L/min) 100 Oxygen Delivery Method Mechanical Ventilator Weight: 119.1 kg Body Mass Index (BMI) 40.6 Intake & Output: Intake and Output for Last 24 Hours 01/29/21 01/30/21 01/31/21 23:59 23:59 23:59 Intake Total 1030.88 / 1292.66 3662.75 / 4023.65 1372.59 / 1372.59 Output Total 1150 / 1350 1250 / 1250 800 / 800 Balance -119.12 / -57.34 2412.75 / 2773.65 572.59 / 572.59 Lab / Micro Data Result Diagrams: 01/31/21 04:15 01/31/21 04:15 Labs: Laboratory Results - last 24 hr 01/31/21 01/31/21 04:15 04:15 WBC 13.7 H RBC 4.83 Hgb 13.7 Hct 44.2 MCV 91.5 MCH 28.4 MCHC 31.0 L D RDW Std Deviation 48.3 H RDW Coeff of [place] 14.2 Plt Count 259 MPV 11.5 Neut % (Auto) Not Reportable Absolute Neuts (auto) 12.2 H Absolute Lymphs (auto) 0.41 L Total Counted 100 Neutrophils % (Manual) 87 H Band Neutrophils % 2 Lymphocytes % (Manual) 3 L Monocytes % (Manual) 6 Metamyelocytes % 1 Myelocytes % 1 H Diff Path Review May foll Platelet Estimate ADEQUATE RBC Morphology NORM C+C Sodium 140 Potassium 5.0 Chloride 104 Carbon Dioxide 30.0 Anion Gap 6 BUN 75 H Creatinine 2.29 H Estim Creat Clear Calc 29.27 Est GFR (MDRD) Af Amer 37 L Est GFR (MDRD) Non-Af 30 L BUN/Creatinine Ratio 32.8 H Glucose 311 H Calcium 7.2 L Total Bilirubin 0.50 AST 67 H ALT 92 H Alkaline Phosphatase 56 Total Protein 6.1 L Albumin 2.3 L Globulin 3.8 Albumin/Globulin Ratio 0.6 L Micro: Microbiology 01/27/21 07:50 Sputum, Expectorated/Coughed Gram Stain - Final 01/27/21 07:50 Sputum, Expectorated/Coughed Respiratory Culture - Preliminary Appears to be normal respiratory nikki. Further studies to follow. 01/27/21 13:50 Blood Culture (Wb) - Left Hand Blood Culture - Preliminary No growth in 48 hours. 01/27/21 11:38 Blood Culture (Wb) - Anticubital Left Blood Culture - Prelim inary No growth in 48 hours. 01/27/21 20:50 Urine, Clean Catch Legionella Antigen - Final 01/27/21 20:50 Urine, Clean Catch Streptococcus pneumoniae Antigen (M - Fi nal 01/27/21 16:20 Mucosa - Nose Respiratory Panel (PCR) - Final 01/27/21 11:42 Mucosa - Nose SARS-CoV-2 Antigen (Rapid) - Final SARS-CoV-2 (COVID 19) Radiography Diagnostic Testing: Radiology Impression Venous Doppler Study 01/27/21 19:13 Interpretation Summary No evidence for acute deep venous thrombosis bilateral lower extremities with patent and compressible bilateral great saphenous veins. COVID-19 protocol utilized Ordering Physician: Ernesto Mathias Performed By: Estelita Stanton RVT Physical Exam Const Constitutional Narrative: Mild anasarca noted General Appearance: well developed and patient mechanically ventilated Orientation / Consciousness: other Other Details: Sedated. RASS -3. Nutritional Appearance: morbidly obese Eyes Eyes Narrative: Scleral injection without icterus Neck No nuchal rigidity, supple and no meningeal signs Lymph Lymphatic: no lymphadenopathy noted Chest inspection of chest normal Chest: symmetrical chest wall rise Resp Auscultation: diminished lung sounds; Negative for rales, rhonchi or wheezes Cardio S1 normal heart sound, S2 normal heart sound, no murmurs, no rub, no gallops and peripheral pulses 2+ throughout; Negative for diaphoretic Rate: bradycardia GI normal to inspection, nondistended, normoactive bowel sounds Extremity General Extremity: edema bilateral (1+); Negative for clubbing or cyanosis Skin no rashes or lesions noted Neuro Neuro Narrative: RASS -3. Some spontaneous movement noted. Psych Appearance: intubated Charges/Coding Procedures Hospitalists Procedures: 08932 Critial Care 1st Hr
--- NOTE | 2021-01-31 07:32 | TELEMED_ITS ---
[facility] Tele[facility] has confirmed receipt of a request for visit. This document confirms receipt of the order initiating the consult. To find the results of the consultation, please view the patient's reports for the scanned Telemed Consult.
[2021-01-31] MEDS: Vital AF 1.2 Cal Liquid 1,000 ML 65 ML NG (08:12)
[2021-01-31 08:38] LABS: Bedside Glucose 312 mg/dL (70-110)
[2021-01-31 08:38] LABS: Bedside Glucose 322 mg/dL (70-110)
--- NOTE | 2021-01-31 09:30 | CASEMGMT ---
RN CM participated in ICU interdisciplinary rounds. Patient remains on vent at this time with FiO2@ 80%. CM will continue to follow this patient and plan for a safe discharge.
--- NOTE | 2021-01-31 10:25 | EX.NTREPO ---
Medical Nutrition Therapy - History Nutrition Services has been consulted to:: Manage enteral nutrition Current diet/nutrition support order:: Vital AF 1.2 via OGT at 65mL/hour w/100mL H2O flush every 4 hours to provide 1872 calories, 117 g protein, and 1865mL fluid/day - Anthropometric Measurements Height:: 5 ft 7 in Weight:: 119.1 kg Body Mass Index (BMI):: 41.1 - Relevant Labs Relevant Labs:: WBC 13.7 K/mm3 (4.4-11.0) H 01/31/21 04:15 MCHC 31.0 g/dL (32-36) L D 01/31/21 04:15 RDW Std Deviation 48.3 fl (35.1-43.9) H 01/31/21 04:15 Neut % (Auto) 75.8 % (47-70) H 01/28/21 05:50 Lymph % (Auto) 12.8 % (19-41) L 01/28/21 05:50 [place] % (Auto) 10.4 % (0-10) H 01/28/21 05:50 Absolute Neuts (auto) 12.2 X10^3/uL (2.0-7.7) H 01/31/21 04:15 Absolute Lymphs (auto) 0.41 X10^3/uL (0.83-4.51) L 01/31/21 04:15 Neutrophils % (Manual) 87 % (47-70) H 01/31/21 04:15 Lymphocytes % (Manual) 3 % (19-41) L 01/31/21 04:15 Myelocytes % 1 % (0-0) H 01/31/21 04:15 Fibrinogen 626 mg/dl (203-444) H 01/27/21 17:45 D-Dimer Quant (PE/DVT) 1.23 FEU/ug/m (0.27-0.49) H* 01/27/21 17:45 Sodium 135 mmol/L (136-145) L 01/27/21 11:38 Potassium 3.3 mmol/L (3.5-5.1) L 01/27/21 11:38 Carbon Dioxide 33.0 mmol/L (21.0-32.0) H 01/28/21 05:50 BUN 75 mg/dL (7-18) H 01/31/21 04:15 Creatinine 2.29 mg/dL (0.70-1.30) H 01/31/21 04:15 Est GFR (MDRD) Af Amer 37 mL/min (>60) L 01/31/21 04:15 Est GFR (MDRD) Non-Af 30 mL/min (>60) L 01/31/21 04:15 BUN/Creatinine Ratio 32.8 RATIO (10-20) H 01/31/21 04:15 Glucose 311 mg/dL (74-106) H 01/31/21 04:15 Calcium 7.2 mg/dL (8.5-10.1) L 01/31/21 04:15 AST 67 U/L (15-37) H 01/31/21 04:15 ALT 92 U/L (16-61) H 01/31/21 04:15 Lactate Dehydrogenase 634 U/L (87-241) H 01/27/21 11:38 Total Creatine Kinase 490 U/L (39-308) H 01/27/21 11:38 C-React Prot Ext Range 56.50 mg/L (0.0-3.0) H 01/27/21 11:38 Total Protein 6.1 g/dL (6.4-8.2) L 01/31/21 04:15 Albumin 2.3 g/dL (3.2-5.0) L 01/31/21 04:15 Albumin/Globulin Ratio 0.6 RATIO (0.9-2.4) L 01/31/21 04:15 Procalcitonin 0.16 ng/mL (0.00-0.09) H 01/27/21 11:38 - Assessment Food and Nutrient Intake: Remains intubated. Wt gain of 3.4 kg since last review. Currently tolerating enteral nutrition support w/ minimal residuals per nursing staff. No reported BMs. - Nutrition Diagnosis: Intake Problem Inadequate Oral Intake Intake Problem - Etiology: related to respiratory failure requiring mechanical intubation Intake Problem - Signs/Symptoms: as evidenced by inability to consume sufficient nutrition via PO diet Status: Active Problem - Nutrition Diagnosis: Clinical Problem Altered Nutrient-Related Laboratory Values Clinical Problem - Etiology: r/t steroid administration, acute illness Clinical Problem - Signs/Symptoms: as evidenced by blood glucose 311 Status: Active Problem - Protein Calorie Malnutrition Evidence of Malnutrition Exists: No - Nutrition Intervention Nutrition Prescription: 4025-0614 calories/day (22-25 calories/kg IBW per ASPEN guidelines for critically ill, morbidly obese pt). 134-167.5 g protein/day (2.0-2.5 g/kg IBW per ASPEN guidelines). 1782-0938 mL fluid/day (25mL/kg IBW) - Food / Nutrient Delivery Interventions Summary of nutrition intervention:: Order/adjust enteral nutrition Nutrition support ordered as / adjusted to:: Recommend change to Vital HP at goal rate of 65mL/hour w/ 75mL H2O flush every 4 hours to provide 1560 calories, 136 g protein, and 1754mL fluid/day. Coordination of Nutrition Care: Discussed w/ OLIVA Campos- will change formula once current bottle of Vital AF 1.2 is finished. - MNT Monitoring Active Nutrition Patient: Yes Nutrition Status: Requires Follow Up in 1-2 Days
--- NOTE | 2021-01-31 10:36 | PCM.PN.ID ---
Physical Exam Narrative On vent, no fever, had seizure near end of Actemra infusion last night. Const no apparent distress Resp Auscultation: diminished lung sounds Cardio regular rate and regular rhythm GI normal to inspection, nondistended, normoactive bowel sounds Extremity no clubbing, cyanosis or edema Skin no rashes or lesions noted ID ID: Route of nutrition/ use of supplements: [] Nutritional Intake: [] IV Site: [] Elias Catheter: [] Assessment & Plan Assessment/Plan (1) Acute and chronic respiratory failure with hypoxia: (2) Pneumonia due to COVID-19 virus: PLAN: Covid with hypoxia, now on vent. On dex and remdesivir. Meets criteria for tocilizumab, given 01/30, stopped near end of infusion due to seizure. On therapeutic lovenox. Repeat sputum cx pending, on empiric vanc/zosyn. Will stop vanc today, decrease dose of zosyn. FiO2 improved today. Will follow (3) JODI (acute kidney injury):
[2021-01-31 11:32] LABS: Pathologist Review Reviewed
[2021-01-31] MEDS: Polyethylene Glycol 3350 17 GM PACKET PO (12:27)
[2021-01-31] MEDS: Lansoprazole 15 MG Capsule.DR 30 MG GT (12:27)
[2021-01-31] MEDS: Enoxaparin 120 MG/0.8 ML Syringe SC ×2 (12:27→21:28)
[2021-01-31] MEDS: dexAMETHasone 10 MG/ML Vial IV (12:28)
[2021-01-31] MEDS: Chlorhexidine 15 ML PO ×2 (12:30→21:28)
[2021-01-31 14:41] LABS: Bedside Glucose 269 mg/dL (70-110)
--- NOTE | 2021-01-31 17:41 | PCM.PN.HOSP ---
Subjective Subjective Intubated and sedated can open his eyes to verbal stimuli but does not track Objective Data Objective Data Vital Signs: Vital Signs Temp Pulse Resp BP Pulse Ox 99.1 F 74 16 110/58 L 94 01/31/21 12:00 01/31/21 15:31 01/31/21 15:31 01/31/21 15:00 01/31/21 15:31 Oxygen Flow Rate (L/min) 100 Oxygen Delivery Method Mechanical Ventilator Weight: 262 lb 9.129 oz Body Mass Index (BMI) 41.1 Intake & Output: Intake and Output for Last 24 Hours 01/30/21 01/31/21 02/01/21 03:59 03:59 03:59 Intake Total 1411.95 / 1532.25 3811.28 / 3834.18 2105.44 / 2105.44 Output Total 1250 / 1250 1400 / 1400 1490 / 1490 Balance 161.95 / 282.25 2411.28 / 2434.18 615.44 / 615.44 Lab / Micro Data Result Diagrams: 01/31/21 04:15 01/31/21 04:15 Labs: Laboratory Results - last 24 hr 01/30/21 01/30/21 01/31/21 18:23 23:50 04:15 WBC 13.7 H RBC 4.83 Hgb 13.7 Hct 44.2 MCV 91.5 MCH 28.4 MCHC 31.0 L D RDW Std Deviation 48.3 H RDW Coeff of [place] 14.2 Plt Count 259 MPV 11.5 Neut % (Auto) Not Reportable Absolute Neuts (auto) 12.2 H Absolute Lymphs (auto) 0.41 L Total Counted 100 Neutrophils % (Manual) 87 H Band Neutrophils % 2 Lymphocytes % (Manual) 3 L Monocytes % (Manual) 6 Metamyelocytes % 1 Myelocytes % 1 H Diff Path Review Reviewed Platelet Estimate ADEQUATE RBC Morphology NORM C+C Sodium Potassium Chloride Carbon Dioxide Anion Gap BUN Creatinine Estim Creat Clear Calc Est GFR (MDRD) Af Amer Est GFR (MDRD) Non-Af BUN/Creatinine Ratio Glucose Calcium Total Bilirubin AST ALT Alkaline Phosphatase Total Protein Albumin Globulin Albumin/Globulin Ratio Vancomycin Trough POC Glucose 312 H 322 H 01/31/21 01/31/21 01/31/21 04:15 12:25 14:45 WBC RBC Hgb Hct MCV MCH MCHC RDW Std Deviation RDW Coeff of [place] Plt Count MPV Neut % (Auto) Absolute Neuts (auto) Absolute Lymphs (auto) Total Counted Neutrophils % (Manual) Band Neutrophils % Lymphocytes % (Manual) Monocytes % (Manual) Metamyelocytes % Myelocytes % Diff Path Review Platelet Estimate RBC Morphology Sodium 140 Potassium 5.0 Chloride 104 Carbon Dioxide 30.0 Anion Gap 6 BUN 75 H Creatinine 2.29 H Estim Creat Clear Calc 29.27 Est GFR (MDRD) Af Amer 37 L Est GFR (MDRD) Non-Af 30 L BUN/Creatinine Ratio 32.8 H Glucose 311 H Calcium 7.2 L Total Bilirubin 0.50 AST 67 H ALT 92 H Alkaline Phosphatase 56 Total Protein 6.1 L Albumin 2.3 L Globulin 3.8 Albumin/Globulin Ratio 0.6 L Vancomycin Trough 21.0 H POC Glucose 269 H Micro: Microbiology 01/27/21 07:50 Sputum, Expectorated/Coughed Gram Stain - Final 01/27/21 07:50 Sputum, Expectorated/Coughed Respiratory Culture - Final 01/30/21 13:25 Sputum, Induced/Lukens Gram Stain - Final 01/30/21 13:25 Sputum, Induced/Lukens Respiratory Culture - Preliminary Staphylococcus aureus 01/27/21 13:50 Blood Culture (Wb) - Left Hand Blood Culture - Preliminary No growth in 48 hours. 01/27/21 11:38 Blood Culture (Wb) - Anticubital Left Blood Culture - Preliminary No growth in 48 hours. 01/27/21 20:50 Urine, Clean Catch Legionella Antigen - Final 01/27/21 20:50 Urine, Clean Catch Streptococcus pneumoniae Antigen (M - Final 01/27/21 16:20 Mucosa - Nose Respiratory Panel (PCR) - Final 01/27/21 11:42 Mucosa - Nose SARS-CoV-2 Antigen (Rapid) - Final SARS-CoV-2 (COVID 19) Physical Exam Const General Appearance: intubated and patient mechanically ventilated Nutritional Appearance: morbidly obese Eyes PERRL Neck supple and no JVD Resp Auscultation: diminished lung sounds; Negative for crackles, rales, rhonchi or wheezes Cardio regular rate, regular rhythm, S1 normal heart sound, S2 normal heart sound and no murmurs GI soft to palpation and non-distended; Negative for hepatosplenomegaly Extremity General Extremity: edema bilateral lower extremity Details: trace Skin no rashes or lesions noted Neuro Sensorium / Orientation: sedated on vent RASS: -3 Psych Appearance: intubated Assessment & Plan Assessment/Plan (1) Acute and chronic respiratory failure with hypoxia: (2) Pneumonia due to COVID-19 virus: (3) Hypokalemia: (4) JODI (acute kidney injury): PLAN: 65-year-old gentleman admitted with severe hypoxia and tachypnea and chest x-ray finding consistent with bilateral COVID-19 pneumonia 1. Acute hypoxic respiratory failure secondary to bilateral COVID-19 pneumonia: ABG was done, 7.43//62 on 60 L, pulse ox 93% on airvo. Patient is being admitted in ICU. Social Service Assistant and ID are consulted for comanagement. I talked to Dr. Davidson and we agreed for IV remdesivir. IV Decadron 6 mg daily. Oxygen therapy. 01/28: Seen by sales representative advertising. BiPAP support alternating with AIRVO. Inflammatory markers CK, LDH, CRP are elevated. Procalcitonin 0.16. D-dimer elevated. On empiric anticoagulation enoxaparin 120 every 12 until CTA angiogram is done. 01/29: Patient was intubated paper winder as required 100% FiO2 on BiPAP, patient remained tachypneic and no improvement. Patient agreed for intubation and was intubated. Furthermore I talked to the patient's ex-, Mrs. Sales.Daughterty and gave overall clinical update. She she wanted monoclonal antibody but was told it is contraindicated moderate to severe hypoxia and COVID-19 pneumonia. She had further concerns regarding newer treatments of COVID-19 stools and experimental stage and advised further talk to ID tomorrow. Questions were satisfactorily answered. She is okay with keeping the patient here -01/30/2021: Ventilation was difficult overnight per the sales representative advertising, no paralysis was needed and his hypoxia did improve a little bit, will continue with Zosyn but discontinue his vancomycin -01/31/2021: Monoclonal antibody was given secondary to his COPD which led to a seizure, this was discontinued EEG was unremarkable but this was after he had been given Ativan to discontinue the seizure-like activity. Remdesivir discontinued 2. Acute kidney injury mostly secondary to dehydration, prerenal etiology or JODI of CKD of unknown stage: IV fluid Ringer lactate. Urine lites ordered. Monitor kidney function if does not improve, kidney ultrasound consult retail greeter. Last creatinine is 1.1 in June 2014 in our system 01/28: Creatinine improved from 1.85-1.52. 01/29: Creatinine remained stable -01/31/2021: Renal function has worsened to 2.29, this was relayed to family by the sales representative advertising. Remdesivir has been discontinued 3. Patient history of gout and kidney stones. Patient states he might have hypertension. Patient has unknown medical history and does not follow physician. Patient is in non-smoker. DVT: Therapeutic Lovenox Charges/Coding Visit Charges Inpatient E&M: 89520 Subs Hosp L2
[2021-01-31] MEDS: 0.9% Saline Lock 10 ML Syringe IV (21:28)
[2021-02-01] VITALS (37 sets, daily range): BP systolic 97–151; BP diastolic 51–95; PULSE 74–127; RESP 14–28; TEMP 37.6–38.5; O2SAT 88–98
[2021-02-01 00:16] LABS: Bedside Glucose 310 mg/dL (70-110)
[2021-02-01] MEDS: Insulin Lispro 100 UNIT/ML INSULN.PEN SC ×5 (00:28→23:27)
[2021-02-01] MEDS: Vital High Protein 1,000 ML 65 ML GT ×2 (00:30→16:10)
[2021-02-01 01:01] LABS: Bedside Glucose 346 mg/dL (70-110)
[2021-02-01] MEDS: Ipratropium/Albuterol Sulfate 3 ML AMPUL.NEB INHALATION ×5 (02:09→19:00)
[2021-02-01] MEDS: Propofol 10MG/Ml 1,000 MG/100 ML Bottle 6.9 MG CONT INF (04:00)
[2021-02-01] MEDS: 0.9% Saline Lock 10 ML Syringe IV ×2 (05:19→21:06)
[2021-02-01 05:31] LABS: Hematocrit 41.4 % (40-54); Hemoglobin 12.9 g/dL (13.0-16.5); Mean Corp Hgb Conc 31.2 g/dL (32-36); Mean Corpuscular Hgb 28.4 pg (27.0-32.0); Mean Corpuscular Volume 91.2 fL (80-94); Mean Platelet Vol. 11.6 fl (6.2-12.0); POSITIVE COUNT YES; POSITIVE MORPHOLOGY YES; Platelet Count 273 K/mm3 (150-450); RBC Distribution Width CV 14.3 % (11.6-14.6); RBC Distribution Width SD 47.8 fl (35.1-43.9); Red Blood Count 4.54 M/mm3 (4.6-6.2)
[2021-02-01 05:32] LABS: Differential Indicated MANUAL DIFF
[2021-02-01 05:51] LABS: Atypical Lymphocyte RARE %; Lymphocyte 6 % (19-41); Metamyelocyte 1 % (0-1); Monocyte 8 % (0-10); Neutrophil-Band 2 % (0-5); Neutrophil-Segmented 83 % (47-70); Total Cells Counted 100 (MANUAL DIFF)
[2021-02-01 05:52] LABS: Absolute Neutrophil Count 10.2 X10^3/uL (2.0-7.7); Neutrophil # 10.21 X10^3/uL (2.7-7.7); Platelet Estimate ADEQUATE (ADEQ); Red Cell Morphology NORM C+C NORMAL (NORM C&C)
[2021-02-01 05:53] LABS: Absolute Lymphocyte Count 0.72 X10^3/uL (0.83-4.51); Lymphocyte # 0.72 X10^3/ul (0.83-4.51)
[2021-02-01] MEDS: TITRATION PARAMETER CHANGE 1 EACH IV (06:06)
[2021-02-01 06:09] LABS: ALB/GLOB Ratio 0.6 RATIO (0.9-2.4); AST(SGOT) 67 U/L (15-37); Alanine Aminotransfer ALT/SGPT 116 U/L (16-61); Albumin, Serum 2.2 g/dL (3.2-5.0); Alkaline Phosphatase 51 U/L (45-117); Anion Gap 4 (5-15); BUN 79 mg/dL (7-18); BUN/Creat Ratio 40.9 RATIO (10-20); Calcium,Total 7.4 mg/dL (8.5-10.1); Chloride 108 mmol/L (98-107); Creatinine, Serum 1.93 mg/dL (0.70-1.30); EST Glomerular Filtration Rate 37 mL/min (>60); Est Glom Filt Rate - Afr Amer 45 mL/min (>60); Estimated Creatinine Clearance 34.72 ml/min; Globulin 3.5 g/dL (2.2-4.2); Glucose 370 mg/dL (74-106); Magnesium 3.1 mg/dL (1.6-2.6); Phosphorus 2.3 mg/dL (2.5-4.9); Potassium 5.7 mmol/L (3.5-5.1); Protein, Total 5.7 g/dL (6.4-8.2); Sodium Level 143 mmol/L (136-145)
[2021-02-01 06:30] LABS: Bedside Glucose 361 mg/dL (70-110)
[2021-02-01] MEDS: Propofol 10MG/Ml 1,000 MG/100 ML Bottle 10.9 MG CONT INF ×3 (06:30→17:36)
--- NOTE | 2021-02-01 06:56 | PCM.PN.INT ---
Assessment & Plan Assessment/Plan (1) Pneumonia due to COVID-19 virus: PLAN: RECOMMENDATIONS: 1. Antibiotics by infectious disease 2. Continue mechanical ventilation. Wean FiO2 as tolerated. Possibly wean PEEP today 3. Continue tube feeds 4. Completed remdesivir. Complete 10-day course of Decadron as ordered. Continue to monitor liver and renal function. 5. Hold on anticonvulsant. Ativan as needed. 6. Continue therapeutic Lovenox and GI prophylaxis 7. Initiate Lantus IMPRESSIONS: 1. Acute hypoxemic respiratory failure secondary to COVID-19 pneumonia with staph aureus superinfection The patient presented to the hospital with approximately 10 days of Covid symptoms and has had progressive decline in his respiratory status. Despite the use of positive pressure ventilatory support with an FiO2 of 100%, the patient continued to have marginal oxygen saturations. Therefore, the decision was made to proceed with intubation on 01/29/2021. Patient with significant improvement in FiO2 requirements over the last 24 hours. May attempt to wean PEEP today. Patient does have a superinfection with staph aureus by sputum culture. Defer to infectious disease. Patient did receive an IL-6 antibody, which can decrease ability to fight bacterial infections 2. Acute kidney injury Slightly improved. Most likely prerenal in etiology and related to acute presentation. Creatinine worsened overnight. Continue to monitor urine output. No current indication for renal replacement therapy. Patient may have a prerenal etiology secondary to extravasation with the development of anasarca. No indication for pressors at this time. Lasix challenge today. 3. Morbid obesity/delayed presentation/hyperglycemia Complicates care, management, recovery and prognosis. Continue to monitor. Dietitian to assist with tube feed orders. Clinical suspicion for hyperglycemia secondary to Decadron. Initiate Lantus. Mild gastric bleeding likely secondary to suction trauma. No acute intervention required. TIME: 34 minutes of critical care time, inclusive of procedures, was spent addressing the patient's acute hypoxemic respiratory failure, COVID-19 pneumonia, acute kidney injury, review of all data and collaboration with the care team. (5:30 AM to 6:30 AM) Subjective Subjective Patient did okay overnight. No acute issues were reported outside of some vent dyssynchrony leading to hypoxia. Patient has tolerated tube feeds. Nursing reports some mild bleeding associated with aspiration of residuals. Urine output has been adequate. Patient has had some elevated blood sugars. Objective Data Objective Data Vital Signs: Vital Signs Temp Pulse Resp BP Pulse Ox 37.7 C H 77 21 H 151/76 H 94 02/01/21 01:00 02/01/21 05:29 02/01/21 05:29 02/01/21 01:00 02/01/21 05:29 Oxygen Flow Rate (L/min) 100 Oxygen Delivery Method Mechanical Ventilator Weight: 121.5 kg Body Mass Index (BMI) 41.1 Intake & Output: Intake and Output for Last 24 Hours 01/30/21 01/31/21 02/01/21 23:59 23:59 23:59 Intake Total 3662.75 / 4023.65 3171.96 / 3528.86 807.01 / 807.01 Output Total 1250 / 1250 2290 / 2650 1010 / 1010 Balance 2412.75 / 2773.65 881.96 / 878.86 -202.99 / -202.99 Lab / Micro Data Result Diagrams: 02/01/21 05:15 02/01/21 05:30 Labs: Laboratory Results - last 24 hr 01/30/21 01/30/21 01/31/21 18:23 23:50 04:15 WBC RBC Hgb Hct MCV MCH MCHC RDW Std Deviation RDW Coeff of [place] Plt Count MPV Neut % (Auto) Absolute Neuts (auto) Absolute Lymphs (auto) Total Counted Neutrophils % (Manual) Band Neutrophils % Lymphocytes % (Manual) Monocytes % (Manual) Metamyelocytes % Diff Path Review Reviewed Atypical Lymphocytes Platelet Estimate RBC Morphology Sodium Potassium Chloride Carbon Dioxide Anion Gap BUN Creatinine Estim Creat Clear Calc Est GFR (MDRD) Af Amer Est GFR (MDRD) Non-Af BUN/Creatinine Ratio Glucose Calcium Phosphorus Magnesium Total Bilirubin AST ALT Alkaline Phosphatase Total Protein Albumin Globulin Albumin/Globulin Ratio Vancomycin Trough POC Glucose 312 H 322 H 01/31/21 01/31/21 01/31/21 12:25 14:45 17:01 WBC RBC Hgb Hct MCV MCH MCHC RDW Std Deviation RDW Coeff of [place] Plt Count MPV Neut % (Auto) Absolute Neuts (auto) Absolute Lymphs (auto) Total Counted Neutrophils % (Manual) Band Neutrophils % Lymphocytes % (Manual) Monocytes % (Manual) Metamyelocytes % Diff Path Review Atypical Lymphocytes Platelet Estimate RBC Morphology Sodium Potassium Chloride Carbon Dioxide Anion Gap BUN Creatinine Estim Creat Clear Calc Est GFR (MDRD) Af Amer Est GFR (MDRD) Non-Af BUN/Creatinine Ratio Glucose Calcium Phosphorus Magnesium Total Bilirubin AST ALT Alkaline Phosphatase Total Protein Albumin Globulin Albumin/Globulin Ratio Vancomycin Trough 21.0 H POC Glucose 269 H 310 H 02/01/21 02/01/21 02/01/21 00:24 05:15 05:15 WBC 12.0 H RBC 4.54 L Hgb 12.9 L Hct 41.4 MCV 91.2 MCH 28.4 MCHC 31.2 L RDW Std Deviation 47.8 H RDW Coeff of [place] 14.3 Plt Count 273 MPV 11.6 Neut % (Auto) Not Reportable Absolute Neuts (auto) 10.2 H Absolute Lymphs (auto) 0.72 L Total Counted 100 Neutrophils % (Manual) 83 H Band Neutrophils % 2 Lymphocytes % (Manual) 6 L Monocytes % (Manual) 8 Metamyelocytes % 1 Diff Path Review May foll Atypical Lymphocytes RARE Platelet Estimate ADEQUATE RBC Morphology NORM C+C Sodium Cancelled Potassium Cancelled Chloride Cancelled Carbon Dioxide Cancelled Anion Gap Cancelled BUN Cancelled Creatinine Cancelled Estim Creat Clear Calc Cancelled Est GFR (MDRD) Af Amer Cancelled Est GFR (MDRD) Non-Af Cancelled BUN/Creatinine Ratio Cancelled Glucose Cancelled Calcium Cancelled Phosphorus Cancelled Magnesium Cancelled Total Bilirubin Cancelled AST Cancelled ALT Cancelled Alkaline Phosphatase Cancelled Total Protein Cancelled Albumin Cancelled Globulin Cancelled Albumin/Globulin Ratio Cancelled Vancomycin Trough POC Glucose 346 H 02/01/21 02/01/21 05:21 05:30 WBC RBC Hgb Hct MCV MCH MCHC RDW Std Deviation RDW Coeff of [place] Plt Count MPV Neut % (Auto) Absolute Neuts (auto) Absolute Lymphs (auto) Total Counted Neutrophils % (Manual) Band Neutrophils % Lymphocytes % (Manual) Monocytes % (Manual) Metamyelocytes % Diff Path Review Atypical Lymphocytes Platelet Estimate RBC Morphology Sodium 143 Potassium 5.7 H Chloride 108 H Carbon Dioxide 31.0 Anion Gap 4 L BUN 79 H Creatinine 1.93 H Estim Creat Clear Calc 34.72 Est GFR (MDRD) Af Amer 45 L Est GFR (MDRD) Non-Af 37 L BUN/Creatinine Ratio 40.9 H Glucose 370 H Calcium 7.4 L Phosphorus 2.3 L Magnesium 3.1 H Total Bilirubin 0.60 AST 67 H ALT 116 H Alkaline Phosphatase 51 Total Protein 5.7 L Albumin 2.2 L Globulin 3.5 Albumin/Globulin Ratio 0.6 L Vancomycin Trough POC Glucose 361 H Micro: Microbiology 01/27/21 07:50 Sputum, Expectorated/Coughed Gram Stain - Final 01/27/21 07:50 Sputum, Expectorated/Coughed Respiratory Culture - Final 01/30/21 13:25 Sputum, Induced/Lukens Gram Stain - Final 01/30/21 13:25 Sputum, Induced/Lukens Respiratory Culture - Preliminary Staphylococcus aureus 01/27/21 13:50 Blood Culture (Wb) - Left Hand Blood Culture - Preliminary No growth in 48 hours. 01/27/21 11:38 Blood Culture (Wb) - Anticubital Left Blood Culture - Preliminary No growth in 48 hours. 01/27/21 20:50 Urine, Clean Catch Legionella Antigen - Final 01/27/21 20:50 Urine, Clean Catch Streptococcus pneumoniae Antigen (M - Final 01/27/21 16:20 Mucosa - Nose Respiratory Panel (PCR) - Final 01/27/21 11:42 Mucosa - Nose SARS-CoV-2 Antigen (Rapid) - Final SARS-CoV-2 (COVID 19) Physical Exam Const Constitutional Narrative: Mild anasarca and diaphoresis noted General Appearance: well developed and patient mechanically ventilated Orientation / Consciousness: other Other Details: Sedated. RASS -3. Nutritional Appearance: morbidly obese Eyes Eyes Narrative: Scleral injection without icterus Neck No nuchal rigidity, supple and no meningeal signs Lymph Lymphatic: no lymphadenopathy noted Chest inspection of chest normal Chest: symmetrical chest wall rise Resp Auscultation: diminished lung sounds; Negative for rales, rhonchi or wheezes Cardio S1 normal heart sound, S2 normal heart sound, no murmurs, no rub, no gallops and peripheral pulses 2+ throughout; Negative for diaphoretic Rate: bradycardia GI normal to inspection, nondistended, normoactive bowel sounds Extremity General Extremity: edema bilateral (1+); Negative for clubbing or cyanosis Skin no rashes or lesions noted Neuro Neuro Narrative: RASS -3. Some spontaneous movement noted. Psych Appearance: intubated Charges/Coding Procedures Hospitalists Procedures: 61761 Critial Care 1st Hr
[2021-02-01] MEDS: Furosemide 40 MG/4 ML Vial IV (08:36)
[2021-02-01] MEDS: dexAMETHasone 10 MG/ML Vial IV (08:38)
[2021-02-01] MEDS: Polyethylene Glycol 3350 17 GM PACKET PO (08:39)
[2021-02-01] MEDS: Lansoprazole 15 MG Capsule.DR 30 MG GT (08:39)
[2021-02-01] MEDS: Enoxaparin 120 MG/0.8 ML Syringe SC ×2 (08:39→21:06)
[2021-02-01] MEDS: CHLORHEXIDINE GLUC 2% CLOTH 1 EACH TOWELETTE TOPICAL (08:40)
[2021-02-01] MEDS: Chlorhexidine 15 ML PO ×2 (08:48→21:07)
[2021-02-01] MEDS: Senna/Docusate Sodium 1 Tablet 2 TABLET GT ×2 (11:04→21:06)
--- NOTE | 2021-02-01 11:14 | PCM.PN.HOSP ---
Subjective Subjective Remains intubated and sedated, no further seizures overnight. Objective Data Objective Data Vital Signs: Vital Signs Temp Pulse Resp BP Pulse Ox 100.4 F H 85 20 H 128/62 H 91 02/01/21 11:00 02/01/21 11:12 02/01/21 11:12 02/01/21 11:00 02/01/21 11:00 Oxygen Flow Rate (L/min) 100 Oxygen Delivery Method Mechanical Ventilator Weight: 267 lb 13.786 oz Body Mass Index (BMI) 41.1 Intake & Output: Intake and Output for Last 24 Hours 01/31/21 02/01/21 02/02/21 03:59 03:59 03:59 Intake Total 3811.28 / 3834.18 3051.16 / 3478.46 734.30 / 734.30 Output Total 1400 / 1400 2300 / 2800 650 / 650 Balance 2411.28 / 2434.18 751.16 / 678.46 84.30 / 84.30 Lab / Micro Data Result Diagrams: 02/01/21 05:15 02/01/21 05:30 Labs: Laboratory Results - last 24 hr 01/31/21 01/31/21 01/31/21 04:15 12:25 14:45 WBC RBC Hgb Hct MCV MCH MCHC RDW Std Deviation RDW Coeff of [place] Plt Count MPV Neut % (Auto) Absolute Neuts (auto) Absolute Lymphs (auto) Total Counted Neutrophils % (Manual) Band Neutrophils % Lymphocytes % (Manual) Monocytes % (Manual) Metamyelocytes % Diff Path Review Reviewed Atypical Lymphocytes Platelet Estimate RBC Morphology Sodium Potassium Chloride Carbon Dioxide Anion Gap BUN Creatinine Estim Creat Clear Calc Est GFR (MDRD) Af Amer Est GFR (MDRD) Non-Af BUN/Creatinine Ratio Glucose Calcium Phosphorus Magnesium Total Bilirubin AST ALT Alkaline Phosphatase Total Protein Albumin Globulin Albumin/Globulin Ratio Vancomycin Trough 21.0 H POC Glucose 269 H 01/31/21 02/01/21 02/01/21 17:01 00:24 05:15 WBC 12.0 H RBC 4.54 L Hgb 12.9 L Hct 41.4 MCV 91.2 MCH 28.4 MCHC 31.2 L RDW Std Deviation 47.8 H RDW Coeff of [place] 14.3 Plt Count 273 MPV 11.6 Neut % (Auto) Not Reportable Absolute Neuts (auto) 10.2 H Absolute Lymphs (auto) 0.72 L Total Counted 100 Neutrophils % (Manual) 83 H Band Neutrophils % 2 Lymphocytes % (Manual) 6 L Monocytes % (Manual) 8 Metamyelocytes % 1 Diff Path Review May foll Atypical Lymphocytes RARE Platelet Estimate ADEQUATE RBC Morphology NORM C+C Sodium Potassium Chloride Carbon Dioxide Anion Gap BUN Creatinine Estim Creat Clear Calc Est GFR (MDRD) Af Amer Est GFR (MDRD) Non-Af BUN/Creatinine Ratio Glucose Calcium Phosphorus Magnesium Total Bilirubin AST ALT Alkaline Phosphatase Total Protein Albumin Globulin Albumin/Globulin Ratio Vancomycin Trough POC Glucose 310 H 346 H 02/01/21 02/01/21 02/01/21 05:15 05:21 05:30 WBC RBC Hgb Hct MCV MCH MCHC RDW Std Deviation RDW Coeff of [place] Plt Count MPV Neut % (Auto) Absolute Neuts (auto) Absolute Lymphs (auto) Total Counted Neutrophils % (Manual) Band Neutrophils % Lymphocytes % (Manual) Monocytes % (Manual) Metamyelocytes % Diff Path Review Atypical Lymphocytes Platelet Estimate RBC Morphology Sodium Cancelled 143 Potassium Cancelled 5.7 H Chloride Cancelled 108 H Carbon Dioxide Cancelled 31.0 Anion Gap Cancelled 4 L BUN Cancelled 79 H Creatinine Cancelled 1.93 H Estim Creat Clear Calc Cancelled 34.72 Est GFR (MDRD) Af Amer Cancelled 45 L Est GFR (MDRD) Non-Af Cancelled 37 L BUN/Creatinine Ratio Cancelled 40.9 H Glucose Cancelled 370 H Calcium Cancelled 7.4 L Phosphorus Cancelled 2.3 L Magnesium Cancelled 3.1 H Total Bilirubin Cancelled 0.60 AST Cancelled 67 H ALT Cancelled 116 H Alkaline Phosphatase Cancelled 51 Total Protein Cancelled 5.7 L Albumin Cancelled 2.2 L Globulin Cancelled 3.5 Albumin/Globulin Ratio Cancelled 0.6 L Vancomycin Trough POC Glucose 361 H Micro: Microbiology 01/30/21 13:25 Sputum, Induced/Lukens Gram Stain - Final 01/30/21 13:25 Sputum, Induced/Lukens Respiratory Culture - Final Staphylococcus aureus 01/27/21 07:50 Sputum, Expectorated/Coughed Gram Stain - Final 01/27/21 07:50 Sputum, Expectorated/Coughed Respiratory Culture - Final 01/27/21 13:50 Blood Culture (Wb) - Left Hand Blood Culture - Preliminary No growth in 48 hours. 01/27/21 11:38 Blood Culture (Wb) - Anticubital Left Blood Culture - Preliminary No growth in 48 hours. 01/27/21 20:50 Urine, Clean Catch Legionella Antigen - Final 01/27/21 20:50 Urine, Clean Catch Streptococcus pneumoniae Antigen (M - Final 01/27/21 16:20 Mucosa - Nose Respiratory Panel (PCR) - Final 01/27/21 11:42 Mucosa - Nose SARS-CoV-2 Antigen (Rapid) - Final SARS-CoV-2 (COVID 19) Physical Exam Const General Appearance: intubated and patient mechanically ventilated Nutritional Appearance: morbidly obese Eyes PERRL Neck supple and no JVD Resp Auscultation: diminished lung sounds; Negative for crackles, rales, rhonchi or wheezes Cardio regular rate, regular rhythm, S1 normal heart sound, S2 normal heart sound and no murmurs GI soft to palpation and non-distended; Negative for hepatosplenomegaly Extremity General Extremity: edema bilateral lower extremity Details: trace Skin no rashes or lesions noted Neuro Sensorium / Orientation: sedated on vent RASS: -3 Psych Appearance: intubated Assessment & Plan Assessment/Plan (1) Acute and chronic respiratory failure with hypoxia: (2) Pneumonia due to COVID-19 virus: (3) Hypokalemia: (4) JODI (acute kidney injury): PLAN: 65-year-old gentleman admitted with severe hypoxia and tachypnea and chest x-ray finding consistent with bilateral COVID-19 pneumonia 1. Acute hypoxic respiratory failure secondary to bilateral COVID-19 pneumonia: ABG was done, 7.43/38/62 on 60 L, pulse ox 93% on airvo. Patient is being admitted in ICU. Pipe Coremaker and ID are consulted for comanagement. I talked to Dr. Davidson and we agreed for IV remdesivir. IV Decadron 6 mg daily. Oxygen therapy. 01/28: Seen by family and consumer education teacher. BiPAP support alternating with AIRVO. Inflammatory markers CK, LDH, CRP are elevated. Procalcitonin 0.16. D-dimer elevated. On empiric anticoagulation enoxaparin 120 every 12 until CTA angiogram is done. 01/29: Patient was intubated fig caprifier as required 100% FiO2 on BiPAP, patient remained tachypneic and no improvement. Patient agreed for intubation and was intubated. Furthermore I talked to the patient's ex-, Mrs. Sales.Daughterty and gave overall clinical update. She she wanted monoclonal antibody but was told it is contraindicated moderate to severe hypoxia and COVID-19 pneumonia. She had further concerns regarding newer treatments of COVID-19 stools and experimental stage and advised further talk to ID tomorrow. Questions were satisfactorily answered. She is okay with keeping the patient here -01/30/2021: Ventilation was difficult overnight per the family and consumer education teacher, no paralysis was needed and his hypoxia did improve a little bit, will continue with Zosyn but discontinue his vancomycin -01/31/2021: Monoclonal antibody was given secondary to his COPD which led to a seizure, this was discontinued EEG was unremarkable but this was after he had been given Ativan to discontinue the seizure-like activity. Remdesivir discontinued -02/01/2021: No further seizures, no anticonvulsants necessary. Continue with Zosyn as well as Decadron. MSSA on sputum culture, can continue with recommendations from ID. 2. Acute kidney injury mostly secondary to dehydration, prerenal etiology or JODI of CKD of unknown stage: IV fluid Ringer lactate. Urine lites ordered. Monitor kidney function if does not improve, kidney ultrasound consult payment processor. Last creatinine is 1.1 in June 2014 in our system 01/28: Creatinine improved from 1.85-1.52. 01/29: Creatinine remained stable -01/31/2021: Renal function has worsened to 2.29, this was relayed to family by the family and consumer education teacher. Remdesivir has been discontinued -02/01/2021: Improvement with his renal function down to 1.93, was given a dose of Lasix for his mild edema we will continue to monitor. 3. Patient history of gout and kidney stones. Patient states he might have hypertension. Patient has unknown medical history and does not follow physician. Patient is in non-smoker. DVT: Therapeutic Lovenox Charges/Coding Visit Charges Inpatient E&M: 61037 Subs Hosp L2
[2021-02-01 11:46] LABS: Bedside Glucose 348 mg/dL (70-110)
[2021-02-01 12:26] LABS: Pathologist Review Reviewed
--- NOTE | 2021-02-01 13:51 | PCM.PN.ID ---
Physical Exam Narrative Remains on vent, O2 improved Const no apparent distress Resp Auscultation: diminished lung sounds Cardio regular rate and regular rhythm GI normal to inspection, nondistended, normoactive bowel sounds Skin no rashes or lesions noted ID ID: Route of nutrition/ use of supplements: [] Nutritional Intake: [] IV Site: [] Elias Catheter: [] Assessment & Plan Assessment/Plan (1) Acute and chronic respiratory failure with hypoxia: (2) Pneumonia due to COVID-19 virus: PLAN: Covid with hypoxia, on vent. On dex and completed remdesivir. Meets criteria for tocilizumab, given 01/30, stopped near end of infusion due to seizure. On therapeutic lovenox. Sputum with mssa, narrow abx to cefazolin. FiO2 improved today. Will follow (3) JODI (acute kidney injury):
[2021-02-01] MEDS: Cefazolin 1 GM/50 ML BAG IV (14:11)
[2021-02-01 16:55] LABS: Bedside Glucose 412 mg/dL (70-110)
[2021-02-01] MEDS: Propofol 10MG/Ml 1,000 MG/100 ML Bottle 7.3 MG CONT INF (23:12)
[2021-02-02] VITALS (43 sets, daily range): BP systolic 86–164; BP diastolic 56–83; PULSE 86–113; RESP 14–26; TEMP 37.2–39.2; O2SAT 88–98
[2021-02-02] MEDS: Cefazolin 1 GM/50 ML BAG IV ×2 (00:49→13:47)
[2021-02-02 01:46] LABS: Bedside Glucose 371 mg/dL (70-110)
[2021-02-02] MEDS: Propofol 10MG/Ml 1,000 MG/100 ML Bottle 14.4 MG CONT INF (02:50)
[2021-02-02 04:53] LABS: Absolute Lymphocyte Count 1.08 X10^3/uL (0.83-4.51); Absolute Neutrophil Count 12.2 X10^3/uL (2.0-7.7); Basophil# 0.07 X10^3/uL; Basophil% 0.5 % (0-1); Eosinophil# 0.01 X10^3/uL; Eosinophils% 0.1 % (0-5); Hematocrit 38.5 % (40-54); Hemoglobin 11.9 g/dL (13.0-16.5); Lymphocyte # 1.08 X10^3/ul (0.83-4.51); Lymphocyte % 6.9 % (19-41); Mean Corp Hgb Conc 30.9 g/dL (32-36); Mean Corpuscular Hgb 28.1 pg (27.0-32.0); Monocyte# 1.48 X10^3/uL; Monocyte% 9.5 % (0-10); NRBC Flagged by Analyzer 0.1 % (0-5); Neutrophil # 12.16 X10^3/uL (2.7-7.7); Neutrophil % 78.2 % (47-70); Platelet Count 318 K/mm3 (150-450); RBC Distribution Width CV 14.4 % (11.6-14.6); Red Blood Count 4.23 M/mm3 (4.6-6.2); White Blood Count 15.5 K/mm3 (4.4-11.0)
[2021-02-02 05:15] LABS: ALB/GLOB Ratio 0.7 RATIO (0.9-2.4); AST(SGOT) 55 U/L (15-37); Alanine Aminotransfer ALT/SGPT 122 U/L (16-61); Albumin, Serum 2.2 g/dL (3.2-5.0); Alkaline Phosphatase 45 U/L (45-117); Anion Gap 2 (5-15); BUN 119 mg/dL (7-18); BUN/Creat Ratio 58.6 RATIO (10-20); Calcium,Total 7.6 mg/dL (8.5-10.1); Chloride 109 mmol/L (98-107); Creatinine, Serum 2.03 mg/dL (0.70-1.30); EST Glomerular Filtration Rate 35 mL/min (>60); Est Glom Filt Rate - Afr Amer 42 mL/min (>60); Estimated Creatinine Clearance 33.01 ml/min; Globulin 3.2 g/dL (2.2-4.2); Glucose 380 mg/dL (74-106); Potassium 5.6 mmol/L (3.5-5.1); Protein, Total 5.4 g/dL (6.4-8.2); Sodium Level 145 mmol/L (136-145)
[2021-02-02] MEDS: TITRATION PARAMETER CHANGE 1 EACH IV (05:37)
--- NOTE | 2021-02-02 06:40 | PCM.PN.INT ---
Assessment & Plan Assessment/Plan (1) Pneumonia due to COVID-19 virus: PLAN: RECOMMENDATIONS: 1. Antibiotics per infectious disease 2. Continue mechanical ventilation. Wean FiO2 as tolerated. 3. Continue tube feeds. Aggressive therapy for bowel movement 4. Completed remdesivir. Complete 10-day course of Decadron as ordered. Continue to monitor liver and renal function. 5. Hold on anticonvulsant. Ativan as needed. 6. Continue therapeutic Lovenox and GI prophylaxis 7. Increase Lantus IMPRESSIONS: 1. Acute hypoxemic respiratory failure secondary to COVID-19 pneumonia with staph aureus superinfection The patient presented to the hospital with approximately 10 days of Covid symptoms and has had progressive decline in his respiratory status. Despite the use of positive pressure ventilatory support with an FiO2 of 100%, the patient continued to have marginal oxygen saturations. Therefore, the decision was made to proceed with intubation on 01/29/2021. Patient with some worsening in FiO2 requirements over the last 24 hours. Unclear if this is secondary to dyssynchrony. Patient does have significant uremia and hyperglycemia. Fluid balance was positive despite Lasix therapy yesterday. 2. Acute kidney injury Slightly worse. Most likely prerenal in etiology and related to acute presentation. BUN worsened overnight. Unclear if this is secondary to tube feeds. Urine output has remained adequate. No current indication for renal replacement therapy. Patient may have a prerenal etiology secondary to extravasation with the development of anasarca. No indication for pressors at this time. Hold on Lasix challenge today. 3. Morbid obesity/delayed presentation/hyperglycemia Complicates care, management, recovery and prognosis. Continue to monitor. Dietitian to assist with tube feed orders. Clinical suspicion for hyperglycemia secondary to Decadron. Increase Lantus. Mild gastric bleeding likely secondary to suction trauma. No acute intervention required. TIME: 40 minutes of critical care time, inclusive of procedures, was spent addressing the patient's acute hypoxemic respiratory failure, COVID-19 pneumonia, acute kidney injury, review of all data and collaboration with the care team. (5:20 AM to 6:20 AM) Subjective Subjective Patient with some difficulties overnight requiring increase in FiO2 to as high as 70%. Patient is also had significantly elevated blood glucose levels. Patient has yet to have a bowel movement. Patient has had some issues with dyssynchrony, especially with brief interruptions in his sedation. Objective Data Objective Data Vital Signs: Vital Signs Temp Pulse Resp BP Pulse Ox 38.1 C H 92 19 H 123/82 H 91 02/02/21 06:00 02/02/21 06:00 02/02/21 06:00 02/02/21 06:00 02/02/21 06:00 Oxygen Flow Rate (L/min) 60 Oxygen Delivery Method Mechanical Ventilator Weight: 119.9 kg Body Mass Index (BMI) 41.1 Intake & Output: Intake and Output for Last 24 Hours 01/31/21 02/01/21 02/02/21 23:59 23:59 23:59 Intake Total 3171.96 / 3528.86 3818.78 / 4180.43 1051.62 / 1051.62 Output Total 2290 / 2650 3565 / 3965 900 / 900 Balance 881.96 / 878.86 253.78 / 215.43 151.62 / 151.62 Lab / Micro Data Result Diagrams: 02/02/21 04:50 02/02/21 04:50 Labs: Laboratory Results - last 24 hr 02/01/21 02/01/21 02/01/21 05:15 11:18 16:43 WBC RBC Hgb Hct MCV MCH MCHC RDW Std Deviation RDW Coeff of [place] Plt Count MPV Immature Gran % (Auto) Neut % (Auto) Lymph % (Auto) [place] % (Auto) Eos % (Auto) Baso % (Auto) Absolute Neuts (auto) Absolute Lymphs (auto) Nucleated RBC % Diff Path Review Reviewed Sodium Potassium Chloride Carbon Dioxide Anion Gap BUN Creatinine Estim Creat Clear Calc Est GFR (MDRD) Af Amer Est GFR (MDRD) Non-Af BUN/Creatinine Ratio Glucose Calcium Total Bilirubin AST ALT Alkaline Phosphatase Total Protein Albumin Globulin Albumin/Globulin Ratio POC Glucose 348 H 412 H 02/01/21 02/02/21 02/02/21 23:24 04:50 04:50 WBC 15.5 H RBC 4.23 L Hgb 11.9 L Hct 38.5 L MCV 91.0 MCH 28.1 MCHC 30.9 L RDW Std Deviation 48.0 H RDW Coeff of [place] 14.4 Plt Count 318 MPV 12.0 Immature Gran % (Auto) 4.800 H Neut % (Auto) 78.2 H Lymph % (Auto) 6.9 L [place] % (Auto) 9.5 Eos % (Auto) 0.1 Baso % (Auto) 0.5 Absolute Neuts (auto) 12.2 H Absolute Lymphs (auto) 1.08 Nucleated RBC % 0.1 [address] Review Sodium 145 Potassium 5.6 H Chloride 109 H Carbon Dioxide 34.0 H Anion Gap 2 L BUN 119 H* Creatinine 2.03 H Estim Creat Clear Calc 33.01 Est GFR (MDRD) Af Amer 42 L Est GFR (MDRD) Non-Af 35 L BUN/Creatinine Ratio 58.6 H Glucose 380 H Calcium 7.6 L Total Bilirubin 0.60 AST 55 H ALT 122 H Alkaline Phosphatase 45 Total Protein 5.4 L Albumin 2.2 L Globulin 3.2 Albumin/Globulin Ratio 0.7 L POC Glucose 371 H Micro: Microbiology 01/27/21 13:50 Blood Culture (Wb) - Left Hand Blood Culture - Final No growth in 5 days. 01/27/21 11:38 Blood Culture (Wb) - Anticubital Left Blood Culture - Final No growth in 5 days. 01/30/21 13:25 Sputum, Induced/Lukens Gram Stain - Final 01/30/21 13:25 Sputum, Induced/Lukens Respiratory Culture - Final Staphylococcus aureus 01/27/21 07:50 Sputum, Expectorated/Coughed Gram Stain - Final 01/27/21 07:50 Sputum, Expectorated/Coughed Respiratory Culture - Final 01/27/21 20:50 Urine, Clean Catch Legionella Antigen - Final 01/27/21 20:50 Urine, Clean Catch Streptococcus pneumoniae Antigen (M - Final 01/27/21 16:20 Mucosa - Nose Respiratory Panel (PCR) - Final 01/27/21 11:42 Mucosa - Nose SARS-CoV-2 Antigen (Rapid) - Final SARS-CoV-2 (COVID 19) Physical Exam Const oriented x3 Constitutional Narrative: Mild anasarca and diaphoresis noted General Appearance: well developed and patient mechanically ventilated Orientation / Consciousness: other Other Details: Sedated. RASS -3. Nutritional Appearance: morbidly obese Eyes Eyes Narrative: Scleral injection without icterus Neck No nuchal rigidity, supple and no meningeal signs Lymph Lymphatic: no lymphadenopathy noted Chest inspection of chest normal Chest: symmetrical chest wall rise Resp Auscultation: diminished lung sounds; Negative for rales, rhonchi or wheezes Cardio S1 normal heart sound, S2 normal heart sound, no murmurs, no rub, no gallops and peripheral pulses 2+ throughout; Negative for diaphoretic Rate: bradycardia GI Inspection: abdominal distention Auscultation: normoactive bowel sounds Palpation: soft; Negative for guarding or rigid Extremity General Extremity: edema bilateral (1+); Negative for clubbing or cyanosis Skin no rashes or lesions noted Neuro Neuro Narrative: RASS -3. Some spontaneous movement noted. Psych Appearance: intubated Charges/Coding Procedures Hospitalists Procedures: 63693 Critial Care 1st Hr
[2021-02-02] MEDS: Insulin Lispro 100 UNIT/ML INSULN.PEN SC ×3 (06:42→18:32)
[2021-02-02] MEDS: Ipratropium/Albuterol Sulfate 3 ML AMPUL.NEB INHALATION ×4 (06:46→19:47)
[2021-02-02 06:56] LABS: Bedside Glucose 348 mg/dL (70-110)
[2021-02-02] MEDS: Enoxaparin 120 MG/0.8 ML Syringe SC (08:23)
[2021-02-02] MEDS: dexAMETHasone 10 MG/ML Vial IV (08:23)
[2021-02-02] MEDS: Senna/Docusate Sodium 1 Tablet 2 TABLET GT (08:23)
[2021-02-02] MEDS: Lansoprazole 15 MG Capsule.DR 30 MG GT (08:23)
[2021-02-02] MEDS: Polyethylene Glycol 3350 17 GM PACKET PO (08:23)
--- NOTE | 2021-02-02 09:15 | CASEMGMT ---
OLIVA BUCKNER NOTE: RN DUDLEY participated in ICU interdisciplinary rounds. Patient remains on vent, FiO2 70%. CM will continue to follow pt's progress. D/C plan TBD at this time. Ailyn BSN OLIVA BUCKNER
[2021-02-02] MEDS: Propofol 10MG/Ml 1,000 MG/100 ML Bottle 10.8 MG CONT INF ×2 (10:59→18:33)
[2021-02-02] MEDS: Bisacodyl 10 MG Suppository RC (11:25)
[2021-02-02] MEDS: CHLORHEXIDINE GLUC 2% CLOTH 1 EACH TOWELETTE TOPICAL (11:25)
[2021-02-02] MEDS: Chlorhexidine 15 ML PO ×2 (11:25→22:13)
[2021-02-02] MEDS: Vital High Protein 1,000 ML 65 ML GT (11:26)
--- NOTE | 2021-02-02 11:37 | PN.HOSP_ITS ---
Subjective Subjective Intubated and sedated, had to go up on his FiO2 overnight. BUN is elevated and his creatinine is stabilized around 2. We will get nephrology on board. Objective Data Objective Data Vital Signs: Vital Signs Temp Pulse Resp BP Pulse Ox 100.7 F H 105 H 21 H 127/69 H 92 02/02/21 08:00 02/02/21 10:45 02/02/21 10:45 02/02/21 10:00 02/02/21 10:45 Oxygen Flow Rate (L/min) 60 Oxygen Delivery Method Mechanical Ventilator Weight: 264 lb 5.348 oz Body Mass Index (BMI) 41.1 Intake & Output: Intake and Output for Last 24 Hours 02/01/21 02/02/21 02/03/21 03:59 03:59 03:59 Intake Total 3051.16 / 3478.46 3966.40 / 4426.80 718.17 / 718.17 Output Total 2300 / 2800 3605 / 4105 1000 / 1000 Balance 751.16 / 678.46 361.40 / 321.80 -281.83 / -281.83 Lab / Micro Data Result Diagrams: 02/02/21 04:50 02/02/21 04:50 Labs: Laboratory Results - last 24 hr 02/01/21 02/01/21 02/01/21 05:15 11:18 16:43 WBC RBC Hgb Hct MCV MCH MCHC RDW Std Deviation RDW Coeff of [place] Plt Count MPV Immature Gran % (Auto) Neut % (Auto) Lymph % (Auto) [place] % (Auto) Eos % (Auto) Baso % (Auto) Absolute Neuts (auto) Absolute Lymphs (auto) Nucleated RBC % Diff Path Review Reviewed Sodium Potassium Chloride Carbon Dioxide Anion Gap BUN Creatinine Estim Creat Clear Calc Est GFR (MDRD) Af Amer Est GFR (MDRD) Non-Af BUN/Creatinine Ratio Glucose Calcium Total Bilirubin AST ALT Alkaline Phosphatase Total Protein Albumin Globulin Albumin/Globulin Ratio POC Glucose 348 H 412 H 02/01/21 02/02/21 02/02/21 23:24 04:50 04:50 WBC 15.5 H RBC 4.23 L Hgb 11.9 L Hct 38.5 L MCV 91.0 MCH 28.1 MCHC 30.9 L RDW Std Deviation 48.0 H RDW Coeff of [place] 14.4 Plt Count 318 MPV 12.0 Immature Gran % (Auto) 4.800 H Neut % (Auto) 78.2 H Lymph % (Auto) 6.9 L [place] % (Auto) 9.5 Eos % (Auto) 0.1 Baso % (Auto) 0.5 Absolute Neuts (auto) 12.2 H Absolute Lymphs (auto) 1.08 Nucleated RBC % 0.1 [address] Review Sodium 145 Potassium 5.6 H Chloride 109 H Carbon Dioxide 34.0 H Anion Gap 2 L BUN 119 H* Creatinine 2.03 H Estim Creat Clear Calc 33.01 Est GFR (MDRD) Af Amer 42 L Est GFR (MDRD) Non-Af 35 L BUN/Creatinine Ratio 58.6 H Glucose 380 H Calcium 7.6 L Total Bilirubin 0.60 AST 55 H ALT 122 H Alkaline Phosphatase 45 Total Protein 5.4 L Albumin 2.2 L Globulin 3.2 Albumin/Globulin Ratio 0.7 L POC Glucose 371 H 02/02/21 06:34 WBC RBC Hgb Hct MCV MCH MCHC RDW Std Deviation RDW Coeff of [place] Plt Count MPV Immature Gran % (Auto) Neut % (Auto) Lymph % (Auto) [place] % (Auto) Eos % (Auto) Baso % (Auto) Absolute Neuts (auto) Absolute Lymphs (auto) Nucleated RBC % Diff Path Review Sodium Potassium Chloride Carbon Dioxide Anion Gap BUN Creatinine Estim Creat Clear Calc Est GFR (MDRD) Af Amer Est GFR (MDRD) Non-Af BUN/Creatinine Ratio Glucose Calcium Total Bilirubin AST ALT Alkaline Phosphatase Total Protein Albumin Globulin Albumin/Globulin Ratio POC Glucose 348 H Micro: Microbiology 01/27/21 13:50 Blood Culture (Wb) - Left Hand Blood Culture - Final No growth in 5 days. 01/27/21 11:38 Blood Culture (Wb) - Anticubital Left Blood Culture - Final No growth in 5 days. 01/30/21 13:25 Sputum, Induced/Lukens Gram Stain - Final 01/30/21 13:25 Sputum, Induced/Lukens Respiratory Culture - Final Staphylococcus aureus 01/27/21 07:50 Sputum, Expectorated/Coughed Gram Stain - Final 01/27/21 07:50 Sputum, Expectorated/Coughed Respiratory Culture - Final 01/27/21 20:50 Urine, Clean Catch Legionella Antigen - Final 01/27/21 20:50 Urine, Clean Catch Streptococcus pneumoniae Antigen (M - Final 01/27/21 16:20 Mucosa - Nose Respiratory Panel (PCR) - Final 01/27/21 11:42 Mucosa - Nose SARS-CoV-2 Antigen (Rapid) - Final SARS-CoV-2 (COVID 19) Physical Exam Const General Appearance: intubated and patient mechanically ventilated Nutritional Appearance: morbidly obese Eyes PERRL Neck supple and no JVD Resp Auscultation: diminished lung sounds; Negative for crackles, rales, rhonchi or wheezes Cardio regular rate, regular rhythm, S1 normal heart sound, S2 normal heart sound and no murmurs GI soft to palpation and non-distended; Negative for hepatosplenomegaly Extremity General Extremity: edema bilateral lower extremity Details: trace Skin no rashes or lesions noted Neuro Sensorium / Orientation: sedated on vent RASS: -3 Psych Appearance: intubated Assessment & Plan Assessment/Plan (1) Acute and chronic respiratory failure with hypoxia: (2) Pneumonia due to COVID-19 virus: (3) JODI (acute kidney injury): PLAN: 65-year-old gentleman admitted with severe hypoxia and tachypnea and chest x-ray finding consistent with bilateral COVID-19 pneumonia 1. Acute hypoxic respiratory failure secondary to bilateral COVID-19 pneumonia: ABG was done, 7.43/38/62 on 60 L, pulse ox 93% on airvo. Patient is being admitted in ICU. Horse Racer and ID are consulted for comanagement. I talked to Dr. Davidson and we agreed for IV remdesivir. IV Decadron 6 mg daily. Oxygen therapy. 01/28: Seen by billing services manager. BiPAP support alternating with AIRVO. Inflammatory markers CK, LDH, CRP are elevated. Procalcitonin 0.16. D-dimer elevated. On e mpiric anticoagulation enoxaparin 120 every 12 until CTA angiogram is done. 01/29: Patient was intubated telephoto installer as required 100% FiO2 on BiPAP, patient remained tachypneic and no improvement. Patient agreed for intubation and was intubated. Furthermore I talked to the patient's ex-, Mrs. Sales.Daughterty and gave overall clinical update. She she wanted monoclonal antibody but was told it is contraindicated moderate to severe hypoxia and COVID-19 pneumonia. She had further concerns regarding newer treatments of COVID-19 stools and experimental stage and advised further talk to ID tomorrow. Questions were satisfactorily answered. She is okay with keeping the patient here -01/30/2021: Ventilation was difficult overnight per the billing services manager, no paralysis was needed and his hypoxia did improve a little bit, will continue with Zosyn but discontinue his vancomycin -01/31/2021: Monoclonal antibody was given secondary to his COPD which led to a seizure, this was discontinued EEG was unremarkable but this was after he had been given Ativan to discontinue the seizure-like activity. Remdesivir discontinued -02/01/2021: No further seizures, no anticonvulsants necessary. Continue with Zosyn as well as Decadron. MSSA on sputum culture, can continue with recommendations from ID. -02/02/2021: Had to go up on his FiO2 overnight, will continue with steroids, his antibiotics were narrowed from Zosyn to Ancef. 2. Acute kidney injury mostly secondary to dehydration, prerenal etiology or JODI of CKD of unknown stage: IV fluid Ringer lactate. Urine lites ordered. Monitor kidney function if does not improve, kidney ultrasound consult ammonia solution preparer. Last creatinine is 1.1 in June 2014 in our system 01/28: Creatinine improved from 1.85-1.52. 01/29: Creatinine remained stable -01/31/2021: Renal function has worsened to 2.29, this was relayed to family by the billing services manager. Remdesivir has been discontinued -02/01/2021: Improvement with his renal function down to 1.93, was given a dose of Lasix for his mild edema we will continue to monitor. -02/02/2021: Renal function is stable around 2 however BUN has climbed significantly and his potassium is elevated to 5.6, will consult nephrology for assistance. 3. Patient history of gout and kidney stones. Patient states he might have hypertension. Patient has unknown medical history and does not follow physician. Patient is in non-smoker. DVT: Therapeutic Lovenox Charges/Coding Visit Charges Inpatient E&M: 65737 Subs Hosp L2
[2021-02-02 11:50] LABS: Bedside Glucose 374 mg/dL (70-110)
--- NOTE | 2021-02-02 13:09 | CON.PCM.RE_ITS ---
HPI Consult Data Date of Consult: 02/02/21 HPI Narrative HPI Narrative: GILBERTO DAHL, is a 65 M who presents [facility] Medical History Gout Kidney stones Home Medications NK 01/27/21 [History Last Taken Unknown] Allergy/AdvReac Type Severity Reaction Status Date / Time No Known Allergies Allergy Verified 01/27/21 11:04 Family History (Updated 01/27/21 @ 14:[address] Rodri Joyce MD) Father Cancer Surgical History History of arthroscopic knee surgery Social History Smoking Status: Never smoker Lab / Micro Data Result Diagrams: 02/02/21 04:50 02/02/21 04:50 Labs: Laboratory Results - last 24 hr 02/01/21 02/01/21 02/02/21 16:43 23:24 04:50 WBC 15.5 H RBC 4.23 L Hgb 11.9 L Hct 38.5 L MCV 91.0 MCH 28.1 MCHC 30.9 L RDW Std Deviation 48.0 H RDW Coeff of [place] 14.4 Plt Count 318 MPV 12.0 Immature Gran % (Auto) 4.800 H Neut % (Auto) 78.2 H Lymph % (Auto) 6.9 L [place] % (Auto) 9.5 Eos % (Auto) 0.1 Baso % (Auto) 0.5 Absolute Neuts (auto) 12.2 H Absolute Lymphs (auto) 1.08 Nucleated RBC % 0.1 Sodium Potassium Chloride Carbon Dioxide Anion Gap BUN Creatinine Estim Creat Clear Calc Est GFR (MDRD) Af Amer Est GFR (MDRD) Non-Af BUN/Creatinine Ratio Glucose Calcium Total Bilirubin AST ALT Alkaline Phosphatase Total Protein Albumin Globulin Albumin/Globulin Ratio POC Glucose 412 H 371 H 02/02/21 02/02/21 02/02/21 04:50 06:34 11:09 WBC RBC Hgb Hct MCV MCH MCHC RDW Std Deviation RDW Coeff of [place] Plt Count MPV Immature Gran % (Auto) Neut % (Auto) Lymph % (Auto) [place] % (Auto) Eos % (Auto) Baso % (Auto) Absolute Neuts (auto) Absolute Lymphs (auto) Nucleated RBC % Sodium 145 Potassium 5.6 H Chloride 109 H Carbon Dioxide 34.0 H Anion Gap 2 L BUN 119 H* Creatinine 2.03 H Estim Creat Clear Calc 33.01 Est GFR (MDRD) Af Amer 42 L Est GFR (MDRD) Non-Af 35 L BUN/Creatinine Ratio 58.6 H Glucose 380 H Calcium 7.6 L Total Bilirubin 0.60 AST 55 H ALT 122 H Alkaline Phosphatase 45 Total Protein 5.4 L Albumin 2.2 L Globulin 3.2 Albumin/Globulin Ratio 0.7 L POC Glucose 348 H 374 H Micro: Microbiology 02/02/21 12:00 Stool Occult Blood (JUS) - Final Stool Occult Blood Positive 01/27/21 13:50 Blood Culture - Final Blood Culture (Wb) - Left Hand No growth in 5 days. 01/27/21 11:38 Blood Culture - Final Blood Culture (Wb) - Anticubital Left No growth in 5 days. 01/30/21 13:25 Gram Stain - Final Sputum, Induced/Lukens Respiratory Culture - Final Staphylococcus aureus
--- NOTE | 2021-02-02 13:11 | PCM.CONS.R ---
Assessment & Plan Assessment/Plan (1) JODI (acute kidney injury): PLAN: Acute renal failure. Elias catheter in place, chances of obstruction or low. Urine output is pretty good with Lasix. Urine analysis is fairly benign. Most likely ATN in the setting of severe Covid pneumonia. Creatinine today is about the same as yesterday. BUN is significantly higher, likely related to catabolism, steroid use. No acute indications for dialysis today. He may need it if renal function gets worse. (2) Hyperkalemia: PLAN: Likely related to acute renal failure, hyperglycemia. Apparently he has not had a bowel movement for almost a week now. Would not be able to get kayexalate due to low bowel motility. Treat hyperglycemia for now. No EKG changes. I spoke to his ex- who is the primary contact. She is also a retired ICU nurse. Updated. All questions answered. Discussed with early head start director and hospitalist Lovenox dose might need to be adjusted down due to renal failure HPI Consult Data Date of Consult: 02/02/21 HPI Narrative HPI Narrative: GILBERTO DAHL, is a 65 M who presents to the hospital with complaints of shortness of breath. He was diagnosed with Covid pneumonia. Nephrology consulted for acute renal failure. Last known baseline creatinine from our system is 1.1 but that was almost 6 years ago. Over the last few days the creatinine has increased to 2.0. BUN is up to 119. For Covid pneumonia, he has received remdesivir, Decadron, Actemra. Urine output is okay. Currently intubated. Review of systems cannot be obtained. [facility] Medical History Gout Kidney stones Home Medications NK 01/27/21 [History Last Taken Unknown] Allergy/AdvReac Type Severity Reaction Status Date / Time No Known Allergies Allergy Verified 01/27/21 11:04 Family History (Updated 01/27/21 @ 14:[address] Rodri Joyce MD) Father Cancer Surgical History History of arthroscopic knee surgery Social History Smoking Status: Never smoker ROS Review of Systems ROS Unobtainable: due to encephalopathy, due to endotracheal tube, due to mental condition, due to mental status and other Physical Exam Narrative Intubated, sedated Exam minimize due to Covid no significant peripheral edema Elias catheter in place Lab / Micro Data Result Diagrams: 02/02/21 04:50 02/02/21 04:50 Labs: Laboratory Results - last 24 hr 02/01/21 02/01/21 02/02/21 16:43 23:24 04:50 WBC 15.5 H RBC 4.23 L Hgb 11.9 L Hct 38.5 L MCV 91.0 MCH 28.1 MCHC 30.9 L RDW Std Deviation 48.0 H RDW Coeff of [place] 14.4 Plt Count 318 MPV 12.0 Immature Gran % (Auto) 4.800 H Neut % (Auto) 78.2 H Lymph % (Auto) 6.9 L [place] % (Auto) 9.5 Eos % (Auto) 0.1 Baso % (Auto) 0.5 Absolute Neuts (auto) 12.2 H Absolute Lymphs (auto) 1.08 Nucleated RBC % 0.1 Sodium Potassium Chloride Carbon Dioxide Anion Gap BUN Creatinine Estim Creat Clear Calc Est GFR (MDRD) Af Amer Est GFR (MDRD) Non-Af BUN/Creatinine Ratio Glucose Calcium Total Bilirubin AST ALT Alkaline Phosphatase Total Protein Albumin Globulin Albumin/Globulin Ratio POC Glucose 412 H 371 H 02/02/21 02/02/21 02/02/21 04:50 06:34 11:09 WBC RBC Hgb Hct MCV MCH MCHC RDW Std Deviation RDW Coeff of [place] Plt Count MPV Immature Gran % (Auto) Neut % (Auto) Lymph % (Auto) [place] % (Auto) Eos % (Auto) Baso % (Auto) Absolute Neuts (auto) Absolute Lymphs (auto) Nucleated RBC % Sodium 145 Potassium 5.6 H Chloride 109 H Carbon Dioxide 34.0 H Anion Gap 2 L BUN 119 H* Creatinine 2.03 H Estim Creat Clear Calc 33.01 Est GFR (MDRD) Af Amer 42 L Est GFR (MDRD) Non-Af 35 L BUN/Creatinine Ratio 58.6 H Glucose 380 H Calcium 7.6 L Total Bilirubin 0.60 AST 55 H ALT 122 H Alkaline Phosphatase 45 Total Protein 5.4 L Albumin 2.2 L Globulin 3.2 Albumin/Globulin Ratio 0.7 L POC Glucose 348 H 374 H Micro: Microbiology 02/02/21 12:00 Stool Occult Blood (JUS) - Final Stool Occult Blood Positive 01/27/21 13:50 Blood Culture - Final Blood Culture (Wb) - Left Hand No growth in 5 days. 01/27/21 11:38 Blood Culture - Final Blood Culture (Wb) - Anticubital Left No growth in 5 days. 01/30/21 13:25 Gram Stain - Final Sputum, Induced/Lukens Respiratory Culture - Final Staphylococcus aureus
--- NOTE | 2021-02-02 18:35 | NURSING ---
Pt required cooling blanket from approx 5156-1240. Temp now less than 101. Will continue to monitor.
[2021-02-02 18:45] LABS: Bedside Glucose 439 mg/dL (70-110)
--- NOTE | 2021-02-02 19:59 | NURSING ---
Large liquid dark black stool noted,
--- NOTE | 2021-02-02 20:11 | NURSING ---
Dr Pete de leond to notified of crepitis left anterior chest, and dark residual, sbp 98/63, liquid black stool. new orders received.
--- NOTE | 2021-02-02 20:27 | NURSING ---
OG placed to suction per Dr Freeman, immediate return of 400 ml bloody liquid. OG placed to liws.
--- NOTE | 2021-02-02 20:43 | NURSING ---
CXR being completed.
--- NOTE | 2021-02-02 20:45 | RAD_ITS ---
STUDY: X-RAY CHEST REASON FOR EXAM: Male, 65 years old. crepitus TECHNIQUE: Frontal view COMPARISON: 01/30/2021 FINDINGS: Endotracheal tube with tip 43 mm above the christie. Nasogastric tube extends into the stomach. The lungs are expanded. Mild infiltrate/atelectasis at lung bases. Normal size heart. Normal mediastinum and tan. Normal visualized pulmonary arteries. Normal visualized aortic arch and descending thoracic aorta. Degenerative changes of the thoracic spine. Normal visualized ribs, clavicles, and shoulders. Extensive bilateral subcutaneous emphysema. There is no demonstrated abnormality of the visualized soft tissue structures of the upper abdomen. RAD/Chest 1 View (Portable) IMPRESSION: Basilar infiltrates/atelectasis bilaterally. Extensive subcutaneous emphysema limiting evaluation. Electronically Signed: Patrice Kim DO at 21:19 EDT Tel [phone], Service support ,
--- NOTE | 2021-02-02 22:26 | PCM.HOSP.N ---
Hospitalist Note Notified by RN of blood suctioned from OG and melena. DC enoxaparin, start SCDs, change PPI to IV pantoprazole.
--- NOTE | 2021-02-02 22:27 | NURSING ---
Dr Ulloa notified of gi bleeding, liquid black stool, GT order for colace and lasoprazole. new orderes placed by Dr Douglas.
[2021-02-02 23:16] LABS: Hematocrit 34.8 % (40-54); Hemoglobin 10.8 g/dL (13.0-16.5); Mean Corpuscular Hgb 28.7 pg (27.0-32.0); Mean Corpuscular Volume 92.6 fL (80-94); Mean Platelet Vol. 12.1 fl (6.2-12.0); POSITIVE COUNT YES; POSITIVE DIFFERENTIAL YES; POSITIVE MORPHOLOGY YES; Platelet Count 373 K/mm3 (150-450); RBC Distribution Width CV 14.4 % (11.6-14.6); RBC Distribution Width SD 48.5 fl (35.1-43.9); Red Blood Count 3.76 M/mm3 (4.6-6.2); White Blood Count 23.1 K/mm3 (4.4-11.0)
[2021-02-02 23:32] LABS: Differential Indicated MANUAL DIFF
[2021-02-02 23:42] LABS: Total Cells Counted 100 (MANUAL DIFF)
[2021-02-02 23:44] LABS: Metamyelocyte 1 % (0-1); Myelocyte 1 % (0-0); Neutrophil-Band 2 % (0-5); Neutrophil-Segmented 76 % (47-70)
[2021-02-02 23:45] LABS: Absolute Lymphocyte Count 1.85 X10^3/uL (0.83-4.51); Lymphocyte 8 % (19-41); Lymphocyte # 1.85 X10^3/ul (0.83-4.51); Monocyte 12 % (0-10); Neutrophil # 18.03 X10^3/uL (2.7-7.7); Platelet Estimate ADEQUATE (ADEQ); Red Cell Morphology NORM C+C NORMAL (NORM C&C)
[2021-02-03] VITALS (50 sets, daily range): BP systolic 37–142; BP diastolic 14–86; PULSE 98–173; RESP 12–25; TEMP 37.4–39.3; O2SAT 78–98
[2021-02-03 00:36] LABS: Bedside Glucose 466 mg/dL (70-110)
[2021-02-03] MEDS: Insulin Lispro 100 UNIT/ML INSULN.PEN 10 UNIT SC (01:10)
[2021-02-03] MEDS: 0.9% Saline Lock 10 ML Syringe IV ×4 (01:12→09:01)
[2021-02-03] MEDS: Cefazolin 1 GM/50 ML BAG IV ×2 (01:21→11:44)
[2021-02-03] MEDS: Propofol 10MG/Ml 1,000 MG/100 ML Bottle 10.8 MG CONT INF ×2 (01:33→07:35)
--- NOTE | 2021-02-03 04:38 | NURSING ---
Pt continues to have bloody return via OG.
[2021-02-03 05:32] LABS: Differential Indicated MANUAL DIFF; Hematocrit 32.4 % (40-54); Hemoglobin 9.8 g/dL (13.0-16.5); Mean Corp Hgb Conc 30.2 g/dL (32-36); Mean Corpuscular Hgb 28.6 pg (27.0-32.0); Mean Corpuscular Volume 94.5 fL (80-94); Mean Platelet Vol. 12.3 fl (6.2-12.0); POSITIVE COUNT YES; POSITIVE DIFFERENTIAL YES; POSITIVE MORPHOLOGY YES; Platelet Count 360 K/mm3 (150-450); RBC Distribution Width CV 14.3 % (11.6-14.6); RBC Distribution Width SD 48.6 fl (35.1-43.9); Red Blood Count 3.43 M/mm3 (4.6-6.2); White Blood Count 26.9 K/mm3 (4.4-11.0)
[2021-02-03] MEDS: CHLORHEXIDINE GLUC 2% CLOTH 1 EACH TOWELETTE TOPICAL (05:36)
[2021-02-03 05:48] LABS: International Normalized Ratio 1.5; Prothrombin Time (Protime)PT. 17.8 SECONDS (11.7-14.9)
[2021-02-03 05:49] LABS: Partial Thromboplast Time 33.8 Seconds (24.1-36.2)
[2021-02-03 05:53] LABS: Lymphocyte 2 % (19-41); Metamyelocyte 2 % (0-1); Monocyte 9 % (0-10); Myelocyte 3 % (0-0); Neutrophil-Band 1 % (0-5); Neutrophil-Segmented 83 % (47-70); Total Cells Counted 100 (MANUAL DIFF)
[2021-02-03 05:54] LABS: Absolute Lymphocyte Count 0.54 X10^3/uL (0.83-4.51); Absolute Neutrophil Count 22.6 X10^3/uL (2.0-7.7); Lymphocyte # 0.54 X10^3/ul (0.83-4.51); Platelet Estimate ADEQUATE (ADEQ); Red Cell Morphology NORM C+C NORMAL (NORM C&C)
--- NOTE | 2021-02-03 06:00 | RAD_ITS ---
STUDY: X-RAY CHEST REASON FOR EXAM: Male, 65 years old. Crepitus TECHNIQUE: Single AP portable view of the chest. COMPARISON: 02/02/2021 chest x-ray FINDINGS: There is an endotracheal tube is present with tip 3.7 cm above the christie and NG tube is present the tip is in the stomach. There is a pattern of emphysematous change throughout the chest and pneumothorax is not visualized however there is a pneumomediastinum. Normal size heart. Normal mediastinum and tan. Normal visualized pulmonary arteries. There is atherosclerotic calcification of the aortic arch with tortuosity. There are diffuse degenerative changes of the visualized thoracic spine. Normal visualized ribs, clavicles, and shoulders. There is no demonstrated abnormality of the visualized soft tissue structures of the upper abdomen. RAD/Chest 1 View (Portable) IMPRESSION: Subcutaneous emphysema. Persistent pneumomediastinum. Lines as detailed above. Electronically Signed: Caty Mcdonough MD at 7:20 EDT Tel , Service support ,
[2021-02-03 06:09] LABS: Anion Gap 11 (5-15); BUN 187 mg/dL (7-18); BUN/Creat Ratio 42.9 RATIO (10-20); Calcium,Total 7.4 mg/dL (8.5-10.1); Chloride 107 mmol/L (98-107); Creatinine, Serum 4.36 mg/dL (0.70-1.30); EST Glomerular Filtration Rate 14 mL/min (>60); Est Glom Filt Rate - Afr Amer 18 mL/min (>60); Estimated Creatinine Clearance 15.37 ml/min; Glucose 494 mg/dL (74-106); Potassium 8.4 mmol/L (3.5-5.1); Sodium Level 145 mmol/L (136-145)
[2021-02-03] MEDS: Insulin Lispro 100 UNIT/ML INSULN.PEN 25 UNIT SC (06:52)
[2021-02-03] MEDS: Sodium Bicarbonate 8.4% 50 ML Syringe 50 MEQ IV ×3 (06:53→16:35)
[2021-02-03] MEDS: Calcium Gluconate 1 GM/10 ML Vial IV ×2 (06:53→06:54)
--- NOTE | 2021-02-03 07:13 | PCM.PN.INT ---
Assessment & Plan Assessment/Plan (1) Pneumonia due to COVID-19 virus: PLAN: RECOMMENDATIONS: 1. Antibiotics per infectious disease 2. Continue mechanical ventilation. Wean PEEP as tolerated. Increase FiO2 as necessary 3. Placement of central line for pressors and hemodialysis line for dialysis 4. Completed remdesivir. Complete 10-day course of Decadron as ordered. Continue to monitor liver and renal function. 5. Multiple orders for hyperkalemia and hypotension 6. Discontinue Lovenox. PPI to twice daily 7. Increase Lantus. Increase coverage IMPRESSIONS: 1. Acute hypoxemic respiratory failure secondary to COVID-19 pneumonia with staph aureus superinfection The patient presented to the hospital with approximately 10 days of Covid symptoms and has had progressive decline in his respiratory status. Despite the use of positive pressure ventilatory support with an FiO2 of 100%, the patient continued to have marginal oxygen saturations. Therefore, the decision was made to proceed with intubation on 01/29/2021. Patient did develop pneumomediastinum overnight. Patient does not appear to have tension physiology at this time. Oxygen requirements have improved, so will attempt to decrease PEEP to limit subcutaneous emphysema and risk for tension physiology. 2. Acute kidney injury/hyperkalemia Patient with significant decline in renal function over the last 24 hours. Patient also with significant hyperkalemia this morning. Appropriate orders have been placed. Discussed with the family and will attempt hemodialysis. Patient to have central line and hemodialysis line placed emergently. Anticipate dialysis later today. Nephrology has been notified. 3. Morbid obesity/delayed presentation/hyperglycemia Complicates care, management, recovery and prognosis. Continue to monitor. Dietitian to assist with tube feed orders. Clinical suspicion for hyperglycemia secondary to Decadron. Increase Lantus. Mild gastric bleeding likely secondary to suction trauma. No acute intervention required. 4. Acute blood loss anemia secondary to GI bleed Clinical suspicion for stress gastritis. PPI has been increased to twice daily and anticoagulation has been discontinued. H&H has remained relatively stable. 5. Pneumomediastinum Patient with significant subcutaneous emphysema, but chest x-ray appears to have expansion of both lungs. Patient does not have a tension pneumothorax per morning x-ray. This complicates the placement of lines. Will attempt to decrease PEEP as tolerated. Okay to increase FiO2 if necessary. TIME: 78 minutes of critical care time, inclusive of procedures, was spent addressing the patient's acute hypoxemic respiratory failure, COVID-19 pneumonia, pneumomediastinum, hyperkalemia acute kidney injury, review of all data and collaboration with the care team. (5:20 AM to 7:40 AM) Subjective Subjective Nursing noted subcutaneous emphysema yesterday evening and called me for orders. Chest x-ray was completed showing only subcutaneous emphysema and pneumomediastinum. Patient with decreasing FiO2 requirements overnight. However, this morning at approximately 6 AM, patient started to become hypotensive. A repeat chest x-ray was obtained showing no pneumothorax, but extensive subcutaneous emphysema. Patient did have significant watery diarrhea overnight. Patient also had approximately 600 cc of bloody OG return. Tube feeds were held. Attempted to contact family at that time, but only left messages. Laboratory data has come back showing a significantly elevated potassium. Multiple orders were placed. Family ended up calling back at approximately 7 AM. Case was discussed. Family members will be coming in to see the patient, but in the interim they have agreed to placement of a central line and hemodialysis line. Objective Data Objective Data Vital Signs: Vital Signs Temp Pulse Resp BP Pulse Ox 38.1 C H 101 H 20 H 77/53 L 96 02/03/21 06:00 02/03/21 06:00 02/03/21 06:00 02/03/21 06:00 02/03/21 06:00 Oxygen Flow Rate (L/min) 60 Oxygen Delivery Method Mechanical Ventilator Weight: 119.4 kg Body Mass Index (BMI) 41.1 Intake & Output: Intake and Output for Last 24 Hours 02/01/21 02/02/21 02/03/21 23:59 23:59 23:59 Intake Total 3818.78 / 4180.43 2749.37 / 2775.17 325.00 / 325.00 Output Total 3565 / 3965 2150 / 2275 825 / 825 Balance 253.78 / 215.43 599.37 / 500.17 -500.00 / -500.00 Lab / Micro Data Result Diagrams: 02/03/21 05:00 02/03/21 05:00 Labs: Laboratory Results - last 24 hr 02/02/21 02/02/21 02/02/21 11:09 18:17 22:55 WBC 23.1 H RBC 3.76 L Hgb 10.8 L Hct 34.8 L MCV 92.6 MCH 28.7 MCHC 31.0 L RDW Std Deviation 48.5 H RDW Coeff of [place] 14.4 Plt Count 373 MPV 12.1 H Neut % (Auto) Not Reportable Absolute Neuts (auto) 18.0 H Absolute Lymphs (auto) 1.85 Total Counted 100 Neutrophils % (Manual) 76 H Band Neutrophils % 2 Lymphocytes % (Manual) 8 L Monocytes % (Manual) 12 H Metamyelocytes % 1 Myelocytes % 1 H Diff Path Review May foll Platelet Estimate ADEQUATE RBC Morphology NORM C+C PT INR APTT Sodium Potassium Chloride Carbon Dioxide Anion Gap BUN Creatinine Estim Creat Clear Calc Est GFR (MDRD) Af Amer Est GFR (MDRD) Non-Af BUN/Creatinine Ratio Glucose Calcium POC Glucose 374 H 439 H 02/03/21 02/03/21 02/03/21 00:08 05:00 05:00 WBC 26.9 H RBC 3.43 L Hgb 9.8 L Hct 32.4 L MCV 94.5 H MCH 28.6 MCHC 30.2 L RDW Std Deviation 48.6 H RDW Coeff of [place] 14.3 Plt Count 360 MPV 12.3 H Neut % (Auto) Not Reportable Absolute Neuts (auto) 22.6 H Absolute Lymphs (auto) 0.54 L Total Counted 100 Neutrophils % (Manual) 83 H Band Neutrophils % 1 Lymphocytes % (Manual) 2 L Monocytes % (Manual) 9 Metamyelocytes % 2 H Myelocytes % 3 H Diff Path Review May foll Platelet Estimate ADEQUATE RBC Morphology NORM C+C PT 17.8 H INR 1.5 APTT 33.8 Sodium Potassium Chloride Carbon Dioxide Anion Gap BUN Creatinine Estim Creat Clear Calc Est GFR (MDRD) Af Amer Est GFR (MDRD) Non-Af BUN/Creatinine Ratio Glucose Calcium POC Glucose 466 H* 02/03/21 05:00 WBC RBC Hgb Hct MCV MCH MCHC RDW Std Deviation RDW Coeff of [place] Plt Count MPV Neut % (Auto) Absolute Neuts (auto) Absolute Lymphs (auto) Total Counted Neutrophils % (Manual) Band Neutrophils % Lymphocytes % (Manual) Monocytes % (Manual) Metamyelocytes % Myelocytes % Diff Path Review Platelet Estimate RBC Morphology PT INR APTT Sodium 145 Potassium 8.4 H* Chloride 107 Carbon Dioxide 27.0 Anion Gap 11 BUN 187 H* Creatinine 4.36 H Estim Creat Clear Calc 15.37 Est GFR (MDRD) Af Amer 18 L Est GFR (MDRD) Non-Af 14 L BUN/Creatinine Ratio 42.9 H Glucose 494 H* Calcium 7.4 L POC Glucose Micro: Microbiology 02/02/21 12:00 Stool Stool Occult Blood (JUS) - Final Occult Blood Positive 01/27/21 13:50 Blood Culture (Wb) - Left Hand Blood Culture - Final No growth in 5 days. 01/27/21 11:38 Blood Culture (Wb) - Anticubital Left Blood Culture - Final No growth in 5 days. 01/30/21 13:25 Sputum, Induced/[place]ukens Gram Stain - Final 01/30/21 13:25 Sputum, Induced/[place] Respiratory Culture - Final Staphylococcus aureus 01/27/21 07:50 Sputum, Expectorated/Coughed Gram Stain - Final 01/27/21 07:50 Sputum, Expectorated/Coughed Respiratory Culture - Final 01/27/21 20:50 Urine, Clean Catch Legionella Antigen - Final 01/27/21 20:50 Urine, Clean Catch Streptococcus pneumoniae Antigen (M - Final 01/27/21 16:20 Mucosa - Nose Respiratory Panel (PCR) - Final 01/27/21 11:42 Mucosa - Nose SARS-CoV-2 Antigen (Rapid) - Final SARS-CoV-2 (COVID 19) Radiography Diagnostic Testing: Radiology Impression Chest X-Ray 02/02/21 20:45 IMPRESSION: Basilar infiltrates/atelectasis bilaterally. Extensive subcutaneous emphysema limiting evaluation. Electronically Signed: Patrice Kim DO at 21:19 EDT Tel [phone], Service support , Physical Exam Const General Appearance: intubated and patient mechanically ventilated Orientation / Consciousness: comatose Exam Limitations: physical limitations Nutritional Appearance: morbidly obese HEENT normocephalic and head/scalp atraumatic; Negative for moist oral mucous membranes Eyes PERRL, EOMs intact bilaterally and conjunctivae normal Eyes Narrative: Scleral injection without icterus Neck full ROM Lymph Lymphatic: no lymphadenopathy noted Chest inspection of chest normal Chest: symmetrical chest wall rise Resp normal respiratory effort and no use of accessory muscles Effort and Inspection: able to speak in complete sentences Auscultation: clear to auscultation bilaterally; Negative for rales, rhonchi or wheezes Cardio S1 normal heart sound, S2 normal heart sound, no murmurs, no rub, no gallops and no JVD Rate: tachycardic GI normal to inspection, nondistended, normoactive bowel sounds GI Narrative: Abdominal distention much improved today Auscultation: normoactive bowel sounds Palpation: soft; Negative for guarding or rigid Extremity General Extremity: edema bilateral (1+); Negative for clubbing or cyanosis Skin no rashes or lesions noted Skin Narrative: Significant subcutaneous emphysema throughout the chest Neuro oriented x3 and CN's II-XII intact bilaterally Neuro Narrative: RASS -3. Some spontaneous movement noted. Psych cooperative and affect normal Appearance: intubated Charges/Coding Procedures Hospitalists Procedures: 14041 Critial Care 1st Hr Multi Select Codes Hospitalists' Procedures Procedures: 14497 Critial Care Addl 30 Min
[2021-02-03] MEDS: Ipratropium/Albuterol Sulfate 3 ML AMPUL.NEB INHALATION (07:27)
--- NOTE | 2021-02-03 07:53 | NURSING ---
Michaela at bedside to place central line and dialysis line
--- NOTE | 2021-02-03 08:23 | RAD_ITS ---
STUDY: X-RAY CHEST REASON FOR EXAM: Male, 65 years old. Central venous AND temporary dialysis lines TECHNIQUE: Single AP portable view of the chest. COMPARISON: 02/03/2021 at 05 46 FINDINGS: Interval placement of right internal jugular temporal dialysis catheter with tip the catheter overlying the superior vena cava. Interval placement of left internal jugular deep venous line with tip the catheter overlying the superior vena cava. Endotracheal tube and nasogastric tube both which are unchanged. The lungs are clear and expanded. There is extensive subcutaneous emphysema but no definite pneumothorax. Normal size heart. Normal mediastinum and tan. Normal visualized pulmonary arteries. Normal visualized aortic arch and descending thoracic aorta. Normal visualized thoracic spine. Normal visualized ribs, clavicles, and shoulders. There is no demonstrated abnormality of the visualized soft tissue structures of the upper abdomen. RAD/CXR for Line Placement IMPRESSION: 1. Interval placement of right internal jugular temporal dialysis catheter with tip the catheter overlying the spur vena cava. 2. Interval placement of left internal jugular deep venous line with tip the catheter overlying the spur vena cava. 3. Endotracheal tube and nasogastric tube both which are unchanged. 4. Continued extensive subcutaneous emphysema without definite pneumothorax. Electronically Signed: Joe Jordan MD at 9:25 EDT Tel , Service support ,
[2021-02-03] MEDS: Chlorhexidine 15 ML PO (08:55)
[2021-02-03] MEDS: dexAMETHasone 10 MG/ML Vial IV (09:00)
--- NOTE | 2021-02-03 09:37 | PCM.OP.BLANK ---
Operative Report Date of Procedure: 02/03/21 Central line placement procedure note Indication: IV access/hemodynamic instability/vasoactive medications Procedure: A time-out was completed to verify correct patient, indication, medication allergies, procedure, coagulation studies, informed consent signed, and equipment needed. The patient was placed in the supine position for a central line placement to the left IJ vein. The patients left neck was prepped using chlorhexidine and a full body sterile drape was applied. 1% lidocaine was used to anesthetize the surrounding skin. A 7fr 20 cm blue guard triple lumen catheter introduced into the internal jugular vein using the modified Seldinger technique with the assistance of ultrasound. The catheter was threaded smoothly over the guidewire, the guidewire was removed easily, nonpulsatile blood returned. All ports were aspirated of air and flushed with sterile saline. The catheter was sutured in place and covered with an occlusive dressing impregnated with chlorhexidine. Post-procedure: The patient tolerated the procedure well. Vital signs remained stable. EBL 3 cc. No complications. Chest X Ray ordered to confirm tip placement and the absence of pneumothorax. Procedures Hospitalists Procedures: [id number] Insert Non-tunnel CV Cath
--- NOTE | 2021-02-03 09:39 | PCM.OP.BLANK ---
Operative Report Date of Procedure: 02/03/21 This is an individual and separate procedure. Temporary hemodialysis catheter placement procedure note Indication: Hemodialysis Procedure: A time-out was completed to verify correct patient, indication, medication allergies, procedure, coagulation studies, informed consent signed, and equipment needed. The patient was placed in the supine position for a central line placement to the rt IJ vein. The patients rt neck was prepped using chlorhexidine and a full body sterile drape was applied. 1% lidocaine was used to anesthetize the surrounding skin. A 12 fr 16 cm temporary hemodialysis catheter introduced into the internal jugular vein using the modified Seldinger technique with the assistance of ultrasound. The site was dilated. The catheter was threaded smoothly over the guidewire, the guidewire was removed easily, nonpulsatile blood returned. All ports were aspirated of air and flushed with sterile saline locked with 1.3 cc of U1000 heparin to each port. The catheter was sutured in place and covered with an occlusive dressing impregnated with chlorhexidine. Post-procedure: The patient tolerated the procedure well. Vital signs remained stable. EBL 5 cc. No complications. Chest X Ray ordered to confirm tip placement and the absence of pneumothorax. Procedures Hospitalists Procedures: [id number] Insert Non-tunnel CV Cath
[2021-02-03 10:17] LABS: Pathologist Review Reviewed
[2021-02-03 10:18] LABS: Pathologist Review Reviewed
--- NOTE | 2021-02-03 10:24 | PN.HOSP_ITS ---
Subjective Subjective Significant decompensation overnight, he did develop GI bleed yesterday and then today he was noted to have pneumomediastinum and subcutaneous emphysema on chest x-ray he also became hypotensive necessitating 2 pressors. His creatinine doubled therefore his tube feeds were discontinued and discussion was had with t chaz family who requested an attempt at dialysis and continued pressor support. He still remains full code though we will continue to discuss this with family as well. Objective Data Objective Data Vital Signs: Vital Signs Temp Pulse Resp BP Pulse Ox 101.4 F H 112 H 15 101/55 L 93 02/03/21 10:00 02/03/21 10:00 02/03/21 10:00 02/03/21 10:00 02/03/21 10:00 Oxygen Flow Rate (L/min) 60 Oxygen Delivery Method Mechanical Ventilator Weight: 263 lb 3.711 oz Body Mass Index (BMI) 41.1 Intake & Output: Intake and Output for Last 24 Hours 02/02/21 02/03/21 02/04/21 03:59 03:59 03:59 Intake Total 3966.40 / 4426.80 2442.15 / 2517.95 602.03 / 602.03 Output Total 3605 / 4105 1875 / 1875 715 / 715 Balance 361.40 / 321.80 567.15 / 642.95 -112.97 / -112.97 Lab / Micro Data Result Diagrams: 02/03/21 05:00 02/03/21 05:00 Labs: Laboratory Results - last 24 hr 02/02/21 02/02/21 02/02/21 11:09 18:17 22:55 WBC 23.1 H RBC 3.76 L Hgb 10.8 L Hct 34.8 L MCV 92.6 MCH 28.7 MCHC 31.0 L RDW Std Deviation 48.5 H RDW Coeff of [place] 14.4 Plt Count 373 MPV 12.1 H Neut % (Auto) Not Reportable Absolute Neuts (auto) 18.0 H Absolute Lymphs (auto) 1.85 Total Counted 100 Neutrophils % (Manual) 76 H Band Neutrophils % 2 Lymphocytes % (Manual) 8 L Monocytes % (Manual) 12 H Metamyelocytes % 1 Myelocytes % 1 H Diff Path Review Reviewed Platelet Estimate ADEQUATE RBC Morphology NORM C+C PT INR APTT Sodium Potassium Chloride Carbon Dioxide Anion Gap BUN Creatinine Estim Creat Clear Calc Est GFR (MDRD) Af Amer Est GFR (MDRD) Non-Af BUN/Creatinine Ratio Glucose Calcium POC Glucose 374 H 439 H 02/03/21 02/03/21 02/03/21 00:08 05:00 05:00 WBC 26.9 H RBC 3.43 L Hgb 9.8 L Hct 32.4 L MCV 94.5 H MCH 28.6 MCHC 30.2 L RDW Std Deviation 48.6 H RDW Coeff of [place] 14.3 Plt Count 360 MPV 12.3 H Neut % (Auto) Not Reportable Absolute Neuts (auto) 22.6 H Absolute Lymphs (auto) 0.54 L Total Counted 100 Neutrophils % (Manual) 83 H Band Neutrophils % 1 Lymphocytes % (Manual) 2 L Monocytes % (Manual) 9 Metamyelocytes % 2 H Myelocytes % 3 H Diff Path Review Reviewed Platelet Estimate ADEQUATE RBC Morphology NORM C+C PT 17.8 H INR 1.5 APTT 33.8 Sodium Potassium Chloride Carbon Dioxide Anion Gap BUN Creatinine Estim Creat Clear Calc Est GFR (MDRD) Af Amer Est GFR (MDRD) Non-Af BUN/Creatinine Ratio Glucose Calcium POC Glucose 466 H* 02/03/21 05:00 WBC RBC Hgb Hct MCV MCH MCHC RDW Std Deviation RDW Coeff of [place] Plt Count MPV Neut % (Auto) Absolute Neuts (auto) Absolute Lymphs (auto) Total Counted Neutrophils % (Manual) Band Neutrophils % Lymphocytes % (Manual) Monocytes % (Manual) Metamyelocytes % Myelocytes % Diff Path Review Platelet Estimate RBC Morphology PT INR APTT Sodium 145 Potassium 8.4 H* Chloride 107 Carbon Dioxide 27.0 Anion Gap 11 BUN 187 H* Creatinine 4.36 H Estim Creat Clear Calc 15.37 Est GFR (MDRD) Af Amer 18 L Est GFR (MDRD) Non-Af 14 L BUN/Creatinine Ratio 42.9 H Glucose 494 H* Calcium 7.4 L POC Glucose Micro: Microbiology 02/02/21 14:52 Sputum, Induced/Lukens Gram Stain - Final 02/02/21 12:00 Stool Stool Occult Blood (JUS) - Final Occult Blood Positive 01/27/21 13:50 Blood Culture (Wb) - Left Hand Blood Culture - Final No growth in 5 days. 01/27/21 11:38 Blood Culture (Wb) - Anticubital Left Blood Culture - Final No growth in 5 days. 01/30/21 13:25 Sputum, Induced/Lukens Gram Stain - Final 01/30/21 13:25 Sputum, Induced/Lukens Respiratory Culture - Final Staphylococcus aureus 01/27/21 07:50 Sputum, Expectorated/Coughed Gram Stain - Final 01/27/21 07:50 Sputum, Expectorated/Coughed Respiratory Culture - Final 01/27/21 20:50 Urine, Clean Catch Legionella Antigen - Final 01/27/21 20:50 Urine, Clean Catch Streptococcus pneumoniae Antigen (M - Final 01/27/21 16:20 Mucosa - Nose Respiratory Panel (PCR) - Final 01/27/21 11:42 Mucosa - Nose SARS-CoV-2 Antigen (Rapid) - Final SARS-CoV-2 (COVID 19) Radiography Diagnostic Testing: Radiology Impression Chest X-Ray 02/02/21 20:45 IMPRESSION: Basilar infiltrates/atelectasis bilaterally. Extensive subcutaneous emphysema limiting evaluation. Electronically Signed: Patrice Kim DO at 21:19 EDT Tel [phone], Service support , Chest X-Ray 02/03/21 06:00 IMPRESSION: Subcutaneous emphysema. Persistent pneumomediastinum. Lines as detailed above. Electronically Signed: Caty Mcdonough MD at 7:20 EDT Tel , Service support , Chest X-Ray 02/03/21 08:23 IMPRESSION: 1. Interval placement of right internal jugular temporal dialysis catheter with tip the catheter overlying the spur vena cava. 2. Interval placement of left internal jugular deep venous line with tip the catheter overlying the spur vena cava. 3. Endotracheal tube and nasogastric tube both which are unchanged. 4. Continued extensive subcutaneous emphysema without definite pneumothorax. Electronically Signed: Joe Jordan MD at 9:25 EDT Tel , Service support , Physical Exam Const General Appearance: intubated and patient mechanically ventilated Nutritional Appearance: morbidly obese Eyes PERRL Neck supple and no JVD Chest Chest: crepitus Resp Auscultation: diminished lung sounds; Negative for crackles, rales, rhonchi or wheezes Cardio regular rate, regular rhythm, S1 normal heart sound, S2 normal heart sound and no murmurs GI soft to palpation and non-distended; Negative for hepatosplenomegaly Extremity General Extremity: edema bilateral lower extremity Details: trace Skin no rashes or lesions noted Neuro Sensorium / Orientation: sedated on vent RASS: -3 Psych Appearance: intubated Assessment & Plan Assessment/Plan (1) Acute and chronic respiratory failure with hypoxia: (2) Pneumonia due to COVID-19 virus: (3) JODI (acute kidney injury): (4) Pneumomediastinum: (5) Shock: (6) GI bleed: PLAN: 65-year-old gentleman admitted with severe hypoxia and ta chypnea and chest x-ray finding consistent with bilateral COVID-19 pneumonia 1. Acute hypoxic respiratory failure secondary to bilateral COVID-19 pneumonia: ABG was done, 7.43/38/62 on 60 L, pulse ox 93% on airvo. Patient is being admitted in ICU. Aoc Director Combat Operations Officer and ID are consulted for comanagement. I talked to Dr. Davidson and we agreed for IV remdesivir. IV Decadron 6 mg daily. Oxygen therapy. 01/28: Seen by infirmary attendant. BiPAP support alternating with AIRVO. Inflammatory markers CK, LDH, CRP are elevated. Procalcitonin 0.16. D-dimer elevated. On empiric anticoagulation enoxaparin 120 every 12 until CTA angiogram is done. 01/29: Patient was intubated intermodal dispatcher as required 100% FiO2 on BiPAP, patient remained tachypneic and no improvement. Patient agreed for intubation and was intubated. Furthermore I talked to the patient's ex-, Mrs. Sales.Daughterty and gave overall clinical update. She she wanted monoclonal antibody but was told it is contraindicated moderate to severe hypoxia and COVID-19 pneumonia. She had further concerns regarding newer treatments of COVI D-19 stools and experimental stage and advised further talk to ID tomorrow. Questions were satisfactorily answered. She is okay with keeping the patient here -01/30/2021: Ventilation was difficult overnight per the infirmary attendant, no paralysis was needed and his hypoxia did improve a little bit, will continue with Zosyn but discontinue his vancomycin -01/31/2021: Monoclonal antibody was given secondary to his COPD which led to a seizure, this was discontinued EEG was unremarkable but this was after he had been given Ativan to discontinue the seizure-like activity. Remdesivir discontinued -02/01/2021: No further seizures, no anticonvulsants necessary. Continue with Zosyn as well as Decadron. MSSA on sputum culture, can continue with recommendations from ID. -02/02/2021: Had to go up on his FiO2 overnight, will continue with steroids, his antibiotics were narrowed from Zosyn to Ancef. -02/03/2021: Has had significant decompensation last 24 hours, started with a GI bleed yesterday that is likely upper GI bleed source he is continued on PPI however his therapeutic anticoagulation has been discontinued. He also developed pneumomediastinum as well as shock unsure whether or not it is septic versus cardiogenic he was started on IV pressors and given his worsening renal function, a dialysis catheter was placed as well and an attempted dialysis will be made. Family has been notified and they are coming in however at the moment elected to keep him at full code 2. Acute kidney injury mostly secondary to dehydration, prerenal etiology or JODI of CKD of unknown stage: IV fluid Ringer lactate. Urine lites ordered. Monitor kidney function if does not improve, kidney ultrasound consult n ephrologist. Last creatinine is 1.1 in June 2014 in our system 01/28: Creatinine improved from 1.85-1.52. 01/29: Creatinine remained stable -01/31/2021: Renal function has worsened to 2.29, this was relayed to family by the infirmary attendant. Remdesivir has been discontinued -02/01/2021: Improvement with his renal function down to 1.93, was given a dose of Lasix for his mild edema we will continue to monitor. -02/02/2021: Renal function is stable around 2 however BUN has climbed significantly and his potassium is elevated to 5.6, will consult nephrology for assistance. -02/03/2021: Significant reduction in his renal function, creatinine has doubled overnight to a little bit over 4. 3. Patient history of gout and kidney stones. Patient states he might have hypertension. Patient has unknown medical history and does not follow physician. Patient is in non-smoker. DVT: Therapeutic Lovenox Charges/Coding Visit Charges Inpatient E&M: 71211 Subs Hosp L2
[2021-02-03] MEDS: Insulin Lispro 100 UNIT/ML INSULN.PEN SC (10:38)
[2021-02-03] MEDS: Acetaminophen 650 MG Suppository RC (10:39)
[2021-02-03 11:00] LABS: Bedside Glucose 414 mg/dL (70-110)
--- NOTE | 2021-02-03 12:01 | CASEMGMT ---
Social Work Note SW updated that pt's family is at [facility] to see pt. SW went down to see pt's family, family had already left. SW placed a call to pt's ex Mónica. Mónica confirms she was at [facility] to see pt with her family and has since left. SW offered support to Mónica and let Mónica know SW is available to provide support if she or her family wants it. Mónica states understanding, denied needing anything at this time. SW to remain available. Estelita Harrison CURRICULUM DEVELOPER, SUPERVISOR [employer]
--- NOTE | 2021-02-03 12:38 | NURSING ---
Temp 102.7, placed on cooling blanket at this time
--- NOTE | 2021-02-03 13:04 | PCM.PN.ID ---
Physical Exam Narrative On pressors, fever, vent, starting HD Const no apparent distress Resp Auscultation: diminished lung sounds Cardio regular rate and regular rhythm GI normal to inspection, nondistended, normoactive bowel sounds Skin no rashes or lesions noted ID ID: Route of nutrition/ use of supplements: [] Nutritional Intake: [] IV Site: [] Elias Catheter: [] Assessment & Plan Assessment/Plan (1) Acute and chronic respiratory failure with hypoxia: (2) Pneumonia due to COVID-19 virus: PLAN: Covid with hypoxia, on vent. On dex and completed remdesivir. Meets criteria for tocilizumab, given 01/30, stopped near end of infusion due to seizure. On therapeutic lovenox. Sputum with mssa, narrow abx to cefazolin. Worsened fever, wbc, and BP. Starting HD. Repeat sputum with mssa again. Will broaden abx to vanc/zosyn. Will follow (3) JODI (acute kidney injury):
--- NOTE | 2021-02-03 14:02 | PCM.RX.CS ---
Consult Pharmacy has been consulted to manage selected antiobiotic: Vancomycin Type of Consult: New start Suspected Infection: Sepsis, Pneumonia Prior Doses of Antibiotics Received/Current Regimen: Last dose was 1250mg iv on 01.31.21. Labs: Sodium 145 mmol/L (136-145) 02/03/21 05:00 Potassium 8.4 mmol/L (3.5-5.1) H* 02/03/21 05:00 Chloride 107 mmol/L (98-107) 02/03/21 05:00 Carbon Dioxide 27.0 mmol/L (21.0-32.0) 02/03/21 05:00 Anion Gap 11 (5-15) 02/03/21 05:00 BUN 187 mg/dL (7-18) H* 02/03/21 05:00 Creatinine 4.36 mg/dL (0.70-1.30) H 02/03/21 05:00 Est GFR (MDRD) Af Amer 18 mL/min (>60) L 02/03/21 05:00 Est GFR (MDRD) Non-Af 14 mL/min (>60) L 02/03/21 05:00 BUN/Creatinine Ratio 42.9 RATIO (10-20) H 02/03/21 05:00 Glucose 494 mg/dL (74-106) H* 02/03/21 05:00 Vancomycin Trough 21.0 ug/mL (5.0-15.0) H 01/31/21 14:45 Microbiology: Microbiology 02/02/21 14:52 Sputum, Induced/Lukens Gram Stain - Final 02/02/21 14:52 Sputum, Induced/Lukens Respiratory Culture - Preliminary Staphylococcus aureus 02/02/21 12:00 Stool Stool Occult Blood (JUS) - Final Occult Blood Positive 01/27/21 13:50 Blood Culture (Wb) - Left Hand Blood Culture - Final No growth in 5 days. 01/27/21 11:38 Blood Culture (Wb) - Anticubital Left Blood Culture - Final No growth in 5 days. 01/30/21 13:25 Sputum, Induced/Lukens Gram Stain - Final 01/30/21 13:25 Sputum, Induced/Lukens Respiratory Culture - Final Staphylococcus aureus 01/27/21 07:50 Sputum, Expectorated/Coughed Gram Stain - Final 01/27/21 07:50 Sputum, Expectorated/Coughed Respiratory Culture - Final 01/27/21 20:50 Urine, Clean Catch Legionella Antigen - Final 01/27/21 20:50 Urine, Clean Catch Streptococcus pneumoniae Antigen (M - Final 01/27/21 16:20 Mucosa - Nose Respiratory Panel (PCR) - Final 01/27/21 11:42 Mucosa - Nose SARS-CoV-2 Antigen (Rapid) - Final SARS-CoV-2 (COVID 19) Weight used for dosin kg Estimated Creatinine Clearance: ~15ml/min Goal Trough: 15-20 mcg/mL Pharmacy Plan for Drug Dosing: Patient getting dialysis today. Have ordered 2000mg iv x 1 to be given this PM after dialysis. Will determine further dosing and timing of levels after dialysis schedule known. Pharmacy Service will continue to monitor and adjust dosing as required.
--- NOTE | 2021-02-03 14:55 | DIALYSIS ---
Attempted dialysis, RIJ temp catheter not working well, blood flow sub par. will TPA line and attempt treatment again.
[2021-02-03] MEDS: Alteplase 2 MG/2 ML Vial 4 MG IV (15:18)
[2021-02-03] MEDS: EPINEPHRINE CONT INF ×2 (15:30→17:44)
[2021-02-03] MEDS: NS 0.9% CONT INF ×2 (15:30→17:44)
[2021-02-03 16:46] LABS: Bedside Glucose 376 mg/dL (70-110)
--- NOTE | 2021-02-03 17:13 | PCM.PN.REN ---
Subjective Subjective events noted. developed pneumomediastinum, s/p chest tube placement. Renal function worse. hyperkalemia Objective Data Objective Data Vital Signs: Vital Signs Temp Pulse Resp BP Pulse Ox 100.7 F H 126 H 14 104/76 94 02/03/21 16:00 02/03/21 16:05 02/03/21 16:00 02/03/21 16:05 02/03/21 16:00 Oxygen Flow Rate (L/min) 60 Oxygen Delivery Method Mechanical Ventilator Weight: 119.4 kg Body Mass Index (BMI) 41.1 Intake & Output: Intake and Output for Last 24 Hours 02/01/21 02/02/21 02/03/21 23:59 23:59 23:59 Intake Total 3818.78 / 4180.43 2749.37 / 2775.17 2162.45 / 2162.45 Output Total 3565 / 3965 2150 / 2275 1470 / 1470 Balance 253.78 / 215.43 599.37 / 500.17 692.45 / 692.45 Lab / Micro Data Result Diagrams: 02/03/21 05:00 02/03/21 05:00 Labs: Laboratory Results - last 24 hr 02/02/21 02/02/21 02/03/21 18:17 22:55 00:08 WBC 23.1 H RBC 3.76 L Hgb 10.8 L Hct 34.8 L MCV 92.6 MCH 28.7 MCHC 31.0 L RDW Std Deviation 48.5 H RDW Coeff of [place] 14.4 Plt Count 373 MPV 12.1 H Neut % (Auto) Not Reportable Absolute Neuts (auto) 18.0 H Absolute Lymphs (auto) 1.85 Total Counted 100 Neutrophils % (Manual) 76 H Band Neutrophils % 2 Lymphocytes % (Manual) 8 L Monocytes % (Manual) 12 H Metamyelocytes % 1 Myelocytes % 1 H Diff Path Review Reviewed Platelet Estimate ADEQUATE RBC Morphology NORM C+C PT INR APTT Sodium Potassium Chloride Carbon Dioxide Anion Gap BUN Creatinine Estim Creat Clear Calc Est GFR (MDRD) Af Amer Est GFR (MDRD) Non-Af BUN/Creatinine Ratio Glucose Calcium POC Glucose 439 H 466 H* 02/03/21 02/03/21 02/03/21 05:00 05:00 05:00 WBC 26.9 H RBC 3.43 L Hgb 9.8 L Hct 32.4 L MCV 94.5 H MCH 28.6 MCHC 30.2 L RDW Std Deviation 48.6 H RDW Coeff of [place] 14.3 Plt Count 360 MPV 12.3 H Neut % (Auto) Not Reportable Absolute Neuts (auto) 22.6 H Absolute Lymphs (auto) 0.54 L Total Counted 100 Neutrophils % (Manual) 83 H Band Neutrophils % 1 Lymphocytes % (Manual) 2 L Monocytes % (Manual) 9 Metamyelocytes % 2 H Myelocytes % 3 H Diff Path Review Reviewed Platelet Estimate ADEQUATE RBC Morphology NORM C+C PT 17.8 H INR 1.5 APTT 33.8 Sodium 145 Potassium 8.4 H* Chloride 107 Carbon Dioxide 27.0 Anion Gap 11 BUN 187 H* Creatinine 4.36 H Estim Creat Clear Calc 15.37 Est GFR (MDRD) Af Amer 18 L Est GFR (MDRD) Non-Af 14 L BUN/Creatinine Ratio 42.9 H Glucose 494 H* Calcium 7.4 L POC Glucose 02/03/21 02/03/21 10:37 16:24 WBC RBC Hgb Hct MCV MCH MCHC RDW Std Deviation RDW Coeff of [place] Plt Count MPV Neut % (Auto) Absolute Neuts (auto) Absolute Lymphs (auto) Total Counted Neutrophils % (Manual) Band Neutrophils % Lymphocytes % (Manual) Monocytes % (Manual) Metamyelocytes % Myelocytes % Diff Path Review Platelet Estimate RBC Morphology PT INR APTT Sodium Potassium Chloride Carbon Dioxide Anion Gap BUN Creatinine Estim Creat Clear Calc Est GFR (MDRD) Af Amer Est GFR (MDRD) Non-Af BUN/Creatinine Ratio Glucose Calcium POC Glucose 414 H 376 H Micro: Microbiology 02/02/21 14:52 Sputum, Induced/Lukens Gram Stain - Final 02/02/21 14:52 Sputum, Induced/Lukens Respiratory Culture - Preliminary Staphylococcus aureus 02/02/21 12:00 Stool Stool Occult Blood (JUS) - Final Occult Blood Positive 01/27/21 13:50 Blood Culture (Wb) - Left Hand Blood Culture - Final No growth in 5 days. 01/27/21 11:38 Blood Culture (Wb) - Anticubital Left Blood Culture - Final No growth in 5 days. 01/30/21 13:25 Sputum, Induced/Lukens Gram Stain - Final 01/30/21 13:25 Sputum, Induced/Lukens Respiratory Culture - Final Staphylococcus aureus 01/27/21 07:50 Sputum, Expectorated/Coughed Gram Stain - Final 01/27/21 07:50 Sputum, Expectorated/Coughed Respiratory Culture - Final 01/27/21 20:50 Urine, Clean Catch Legionella Antigen - Final 01/27/21 20:50 Urine, Clean Catch Streptococcus pneumoniae Antigen (M - Final 01/27/21 16:20 Mucosa - Nose Respiratory Panel (PCR) - Final 01/27/21 11:42 Mucosa - Nose SARS-CoV-2 Antigen (Rapid) - Final SARS-CoV-2 (COVID 19) Radiography Diagnostic Testing: Radiology Impression Chest X-Ray 02/02/21 20:45 IMPRESSION: Basilar infiltrates/atelectasis bilaterally. Extensive subcutaneous emphysema limiting evaluation. Electronically Signed: Patrice Kim DO at 21:19 EDT Tel [phone], Service support , Chest X-Ray 02/03/21 06:00 IMPRESSION: Subcutaneous emphysema. Persistent pneumomediastinum. Lines as detailed above. Electronically Signed: Caty Mcdonough MD at 7:20 EDT Tel , Service support , Chest X-Ray 02/03/21 08:23 IMPRESSION: 1. Interval placement of right internal jugular temporal dialysis catheter with tip the catheter overlying the spur vena cava. 2. Interval placement of left internal jugular deep venous line with tip the catheter overlying the spur vena cava. 3. Endotracheal tube and nasogastric tube both which are unchanged. 4. Continued extensive subcutaneous emphysema without definite pneumothorax. Electronically Signed: Joe Jordan MD at 9:25 EDT Tel , Service support , Physical Exam Narrative Intubated, sedated Exam minimize due to Covid no significant peripheral edema Elias catheter in place Assessment & Plan Assessment/Plan (1) JODI (acute kidney injury): PLAN: Acute renal failure. Elias catheter in place, chances of obstruction are low. Urine output dropped off. Urine analysis is fairly benign. Most likely ATN in the setting of severe Covid pneumonia. dialysis today (2) Hyperkalemia: PLAN: Likely related to acute renal failure, hyperglycemia. dw Dr Freeman dialysis today. line placed earlier.
--- NOTE | 2021-02-03 18:00 | NURSING ---
HR suddenly began to drop and rhythm changed noted on monitor. Unable to palpate carotid or femoral pulse. Unable to auscultate heart sounds, verified w/ Eden BAPTISTE. Time of 1800. notified.
--- NOTE | 2021-02-03 18:16 | PCM.DEATH ---
Preliminary Cause of Preliminary Cause of Preliminary Cause of : Septic shock from COVID-19 pneumonia and MSSA superinfection Date of Admission: 01/27/21 Principle Diagnosis Problem List: Active and Suspected Problems (Updated 02/03/21 @ 10:[address] Doni Mejia MD) GI bleed (Acute) Shock (Acute) Pneumomediastinum (Acute) Hyperkalemia (Acute) JODI (acute kidney injury) (Acute) Hypokalemia (Acute) Pneumonia due to COVID-19 virus (Acute) Hospital Course Mr. Cline was a 65-year-old male presented to the hospital on 01/27/2021 with no significant past medical history though he did acknowledge not following with a physician, with malaise, weakness, and diarrhea for about 4 days. The GI symptoms resolved but this was followed by a nonproductive cough and shortness of breath which worsened. During the course of his hospitalization he tested positive for Covid and was started on remdesivir and Decadron. He was also found to have an MSSA superinfection and was initially started on broad-spectrum antibiotics which was then narrowed based on culture data to Ancef. He decompensated to the point of needing intubation on 01/29/2021 and he continued to have high PEEP needs and high FiO2 needs. His ex- who is also his POA, had asked for the monoclonal antibody and this was provided on 01/31/2021 however towards the end of the infusion he did develop a seizure and so this was discontinued. The seizure was controlled with Ativan and an EEG was obtained which did not show any epileptiform discharges after the Ativan was given. Overnight he had a significant worsening in his status, he had had a GI bleed on 02/02/2021 and his therapeutic Lovenox was discontinued and then overnight he developed pneumomediastinum with subcutaneous emphysema secondary to his high PEEP and his renal function doubled and he had an elevation in his potassium to 8.4. This was discussed with family and they elected to proceed with dialysis if he could tolerate it therefore both a central line and dialysis catheter was placed secondary to his shock. He had norepinephrine and vasopressin started this morning and then had epinephrine initiated. This caused him to develop tachycardia and therefore further CODE STATUS discussions were had with the family and they elected to make him a DNR CCA. Mr. Chambers on 02/03/2021 at 1800. Visit Charges Inpatient E&M: [id number] Disch Hosp
--- NOTE | 2021-02-03 19:08 | NURSING ---
Post mortem care complete. home notified.
--- NOTE | 2021-02-03 19:09 | DIALYSIS ---
Hemodialysis catheter was slightly better after cath vivi dwell. Treatment resumed at 1620, with decent blood flow and then over the treatment flow became worse. Patient also having runs of SVT and hypotension, despite pressors and fluid boluses. Treatment ended at 1800, once blood was returned patient elaine HR and found no pulse, no heartbeat heard and patient was pronounced. no fluid was removed patient was left with a positive fluid balance. Dr Sanchez notified of patients .
[2021-02-04 11:17] LABS: Hepatitis B Surface Antibody Non-Reactive
[2021-02-04 11:25] LABS: Hepatitis B Surface Antigen Non-Reactive (Nonreactive)
[2021-02-05 15:25] LABS: Hepatitis B Core Ab Total Negative (Negative)
== END 2021-02-03 21:30 | DRG 207 ==
LOC: ED 12:21 → ICU 13:29
PROVIDERS: Internal Medicine Critical Care Medicine; Internal Medicine Nephrology; Admitting Provider Internal Medicine; Emergency Provider Emergency Medicine; Visit Provider Family Medicine
DX: U07.1 COVID-19 (principal); J12.82 Pneumonia due to coronavirus disease 2019; J96.01 Acute respiratory failure with hypoxia; J15.211 Pneumonia due to Methicillin susceptible Staphylococcus aureus; N17.9 Acute kidney failure, unspecified; Z68.41 Body mass index [BMI] 40.0-44.9, adult; D62 Acute posthemorrhagic anemia; K92.2 Gastrointestinal hemorrhage, unspecified; R57.9 Shock, unspecified; E86.0 Dehydration; M10.9 Gout, unspecified; E66.01 Morbid (severe) obesity due to excess calories; R56.9 Unspecified convulsions; T50.995A Adverse effect of other drugs, medicaments and biological substances, initial encounter; R73.9 Hyperglycemia, unspecified; T38.0X5A Adverse effect of glucocorticoids and synthetic analogues, initial encounter; E87.5 Hyperkalemia; J98.2 Interstitial emphysema; Z66 Do not resuscitate
CPT/HCPCS: 31500; 31720; 36600; 71045; 80048; 80053; 80202; 82274; 82436; 82550; 82570; 82803; 82962; 83605; 83615; 83735; 83880; 84100; 84133; 84145; 84300; 84478; 84484; 85025; 85379; 85384; 85610; 85730; 86140; 86704; 86706; 87040; 87070; 87077; 87186; 87205; 87340; 87426; 87449; 87633; 90937; 93005; 93970; 94002; 94003; 94640; 94660; 95819; 97162; 97166; 97802; 97803; 99251; 99285; J2997; J7030; J7040; J7050; J7120; A4216; C1752; G0257; G0463; J0610; J1940; J3010; J3262; J3490